=== PATIENT | male | born 1965 | race American Indian/Alaskan Native ===

== ENCOUNTER 2016-10-04 22:23 | Emergency (ER) | payer MEDICAID ==
[2016-10-04 22:24] VITALS: BMI 28.7
[2016-10-04 22:39] VITALS: BP 146/95; PULSE 75; RESP 16; TEMP 98.7; O2SAT 100
--- NOTE | 2016-10-04 23:06 | ED PDOC ---
HPI: General Adult Time Seen by Provider: 10/04/16 23:00 Chief Complaint (Nursing): Back Pain Chief Complaint (Provider): back pain, leg pain History Per: Patient Additional Complaint(s): 51-year-old male presents to emergency department with lower back pain and bilateral leg pain that started yesterday. Patient has history of chronic back pain and states that his pain became worse yesterday. Patient is currently living in the nursing home in [place]. He denies any fever or chills, denies any trauma or injury. Patient states that he also had 1 episode of blood in stool earlier today. He denies any associated abdominal pain, no nausea, vomiting or diarrhea. Patient has had episodes of blood in stool in the past intermittently for 2-3 years. Patient denies any rectal pain. Patient also states he has noticed some swelling in both feet as of today. He denies chest pain, shortness of breath or BELTRAN. Past Medical History Reviewed: Historical Data Vital Signs: Last Vital Signs Temp 98.7 F 10/04/16 22:37 Pulse 75 10/04/16 22:37 Resp 16 10/04/16 22:37 BP 146/95 H 10/04/16 22:37 Pulse Ox 100 10/05/16 00:17 - Medical History PMH: Depression - Family History Family History: States: No Known Family Hx - Living Arrangements Living Arrangements: Other (lives in nursing home) - Social History Current smoker - smoking cessation education provided: Yes Alcohol: > 2 Drinks/Day Drugs: Cocaine (history of abuse) - Immunization History Hx Tetanus Toxoid Vaccination: No Hx Influenza Vaccination: No Hx Pneumococcal Vaccination: No - Home Medications Home Medications: Ambulatory Orders Medication Instructions Recorded Acetaminophen [Tylenol 325mg tab] 650 mg PO Q6 PRN #60 tab 10/05/16 Cyclobenzaprine [Cyclobenzaprine 10 mg PO TID PRN #15 tab 10/05/16 HCl] - Allergies Allergies/Adverse Reactions: Allergies Allergy/AdvReac Type Severity Reaction Status Date / Time No Known Allergies Allergy Verified 09/27/16 10:04 Review of Systems ROS Statement: Except As Marked, All Systems Reviewed And Found Negative Constitutional: Negative for: Fever, Chills Cardiovascular: Negative for: Chest Pain Respiratory: Negative for: Cough Gastrointestinal: Positive for: Other (1 episode of blood in stool today, history of same). Negative for: Nausea, Vomiting Genitourinary Male: Negative for: Dysuria Musculoskeletal: Positive for: Back Pain, Leg Pain Neurological: Negative for: Weakness, Numbness, Headache, Dizziness Physical Exam - Reviewed Nursing Documentation Reviewed: Yes Vital Signs Reviewed: Yes - Physical Exam Appears: Positive for: Well, Non-toxic, No Acute Distress Skin: Negative for: Rash Cardiovascular/Chest: Positive for: Regular Rate, Rhythm Respiratory: Positive for: Normal Breath Sounds. Negative for: Wheezing, Respiratory Distress Gastrointestinal/Abdominal: Positive for: Soft, Other (obese, non-tender abdomen ). Negative for: Tenderness, Distended, Guarding, Rebound Back: Negative for: L CVA Tenderness, R CVA Tenderness Extremity: Negative for: Pedal Edema, Calf Tenderness Neurologic/Psych: Positive for: Alert, Oriented - Laboratory Results Result Diagrams: 10/04/16 23:59 10/04/16 23:59 - ECG O2 Sat by Pulse Oximetry: 100 Pulse Ox Interpretation: Normal - Other Rad bedside chest X-Ray: Interpreted by Me, Viewed By Me X-Ray Interpretation: no acute finding Medical Decision Making Medical Decision Makin51 year old with back pain and leg pain Plan: CBC CMP BNP BAL UDS IVF IV toradol PO flexeril CXR Previous records reviewed, patient was discharged from inpatient detox at [facility] 2 days ago. Patient states he does not have history of etoh abuse despite his previous medical record stating otherwise. Patient states that he was admitted into detox department because there were no psychiatric beds available. At this time he denies any suicidal or homicidal ideation. Patient denies having used any alcohol in over 48 hours. He states he does not drink every day. 2:00 am: patient states back pain is improved after meds given. Abdominal exam remains benign. Patient was given rx tylenol and flexeril. He was referred to clinic for follow up. Disposition - Clinical Impression Clinical Impression: Back pain - Patient ED Disposition Is Patient to be Admitted: No Counseled Patient/Family Regarding: Studies Performed, Diagnosis, Need For Followup, Rx Given - Disposition Referrals: [facility] [Outside] Disposition: Routine/Home Disposition Time: 02:00 Condition: IMPROVED Additional Instructions: Take rx meds as directed as needed for pain. Follow up with clinic in 2-3 days. Prescriptions: Acetaminophen [Tylenol 325mg tab] 650 mg PO Q6 PRN #60 tab PRN Reason: Pain, Moderate (4-7) Cyclobenzaprine [Cyclobenzaprine HCl] 10 mg PO TID PRN #15 tab PRN Reason: Muscle Pain Instructions: Back Pain (ED) Results - Lab Results Lab Results: 10/05/16 10/05/16 10/04/16 00:55 00:55 23:59 WBC 5.9 RBC 4.24 L Hgb 12.4 Hct 37.0 MCV 87.3 D MCH 29.1 MCHC 33.4 RDW 15.0 H Plt Count 203 MPV 8.2 Neut % (Auto) 59.5 Lymph % (Auto) 29.6 [place] % (Auto) 7.7 Eos % (Auto) 2.3 Baso % (Auto) 0.9 Neut # 3.5 Lymph # 1.7 [place] # 0.5 Eos # 0.1 Baso # 0.1 Sodium Potassium Chloride Carbon Dioxide Anion Gap BUN Creatinine Est GFR ( Amer) Est GFR (Non-Af Amer) Random Glucose Calcium Total Bilirubin AST ALT Alkaline Phosphatase NT-Pro-B Natriuret Pep Total Protein Albumin Globulin Albumin/Globulin Ratio Urine Color Straw Urine Clarity Clear Urine pH 7.0 Ur Specific [place] 1.009 Urine Protein Negative Urine Glucose (UA) Neg Urine Ketones Negative Urine Blood Negative Urine Nitrate Negative Urine Bilirubin Negative Urine Urobilinogen 0.2-1.0 Ur Leukocyte Esterase Neg Urine RBC (Auto) 2 Urine Microscopic WBC < 1 Ur Squamous Epith Cells < 1 Urine Opiates Screen Negative Urine Methadone Screen Negative Ur Barbiturates Screen Negative Ur Phencyclidine Scrn Negative Ur Amphetamines Screen Negative U Benzodiazepines Scrn Negative U Oth Cocaine Metabols Pending U Cannabinoids Screen Positive H Alcohol, Quantitative 10/04/16 23:59 WBC RBC Hgb Hct MCV MCH MCHC RDW Plt Count MPV Neut % (Auto) Lymph % (Auto) [place] % (Auto) Eos % (Auto) Baso % (Auto) Neut # Lymph # [place] # Eos # Baso # Sodium 141 Potassium 4.0 Chloride 105 Carbon Dioxide 27 Anion Gap 12 BUN 13 Creatinine 1.0 Est GFR ( Amer) > 60 Est GFR (Non-Af Amer) > 60 Random Glucose 97 Calcium 9.2 Total Bilirubin 0.3 AST 32 ALT 40 Alkaline Phosphatase 70 NT-Pro-B Natriuret Pep 119 Total Protein 6.8 Albumin 3.8 Globulin 3.0 Albumin/Globulin Ratio 1.3 Urine Color Urine Clarity Urine pH Ur Specific [place] Urine Protein Urine Glucose (UA) Urine Ketones Urine Blood Urine Nitrate Urine Bilirubin Urine Urobilinogen Ur Leukocyte Esterase Urine RBC (Auto) Urine Microscopic WBC Ur Squamous Epith Cells Urine Opiates Screen Urine Methadone Screen Ur Barbiturates Screen Ur Phencyclidine Scrn Ur Amphetamines Screen U Benzodiazepines Scrn U Oth Cocaine Metabols U Cannabinoids Screen Alcohol, Quantitative < 10
[2016-10-05 00:12] LABS: BASO # 0.1 K/uL (0.0-0.2); BASO % 0.9 % (0.0-2.0); EOS # 0.1 K/uL (0.0-0.7); EOS % 2.3 % (0.0-4.0); LYMPH # 1.7 K/uL (1.0-4.3); LYMPH % 29.6 % (20.0-40.0); MEAN CELL VOLUME 87.3 fl (80.0-94.0); MEAN CORPUSCULAR HEMOGLOBIN 29.1 pg (27.0-31.0); MEAN CORPUSCULAR HGB CONC 33.4 g/dL (33.0-37.0); MEAN PLATELET VOLUME 8.2 fl (7.2-11.7); MONO # 0.5 K/uL (0.0-0.8); MONO % 7.7 % (0.0-10.0); NEUT # 3.5 K/uL (1.8-7.0); NEUT % 59.5 % (50.0-75.0); NRBC % 0.2 % (0.0-0.0); WHITE BLOOD COUNT 5.9 K/uL (4.8-10.8)
[2016-10-05 00:36] LABS: ALB/GLOB RATIO 1.3 (1.0-2.1); ALKALINE PHOSPHATASE 70 U/L (38-126); ALT/SGPT 40 U/L (21-72); AST/SGOT 32 U/L (17-59); BILIRUBIN,TOTAL 0.3 mg/dl (0.2-1.3); BLOOD UREA NITROGEN 13 mg/dl (9-20); CALCIUM 9.2 mg/dL (8.4-10.2); CARBON DIOXIDE 27 mmol/L (22-30); CHLORIDE 105 mmol/L (98-107); GFR AFRICAN-AMERICAN > 60; GLUCOSE,RANDOM 97 mg/dL (75-110); SODIUM 141 mmol/l (132-148); TOTAL PROTEIN 6.8 G/DL (6.3-8.2)
[2016-10-05 00:56] LABS: ALCOHOL SERUM < 10 mg/dl (0-10)
[2016-10-05 01:23] LABS: RBC URINE 2 /hpf (0-3); URINE BILIRUBIN NEGATIVE (NEGATIVE); URINE BLOOD NEGATIVE (NEGATIVE); URINE COLOR STRAW (YELLOW); URINE GLUCOSE (UA) NEG (Normal); URINE KETONE NEGATIVE (NEGATIVE); URINE LEUKOCYTE ESTERASE NEG Leu/uL (Negative); URINE PROTEIN NEGATIVE (NEGATIVE); URINE UROBILINOGEN 0.2-1.0 mg/dL (0.2-1.0); WBC URINE < 1 /hpf (0-5)
--- NOTE | 2016-10-05 08:01 | RAD ---
HISTORY: swelling to legs COMPARISON: No prior. FINDINGS: LUNGS: No active pulmonary disease. PLEURA: No significant pleural effusion identified, no pneumothorax apparent. CARDIOVASCULAR: Cardiomegaly. OSSEOUS STRUCTURES: No significant abnormalities. VISUALIZED UPPER ABDOMEN: Normal. OTHER FINDINGS: None. IMPRESSION: No active disease.
== END 2016-10-05 06:51 | disposition home or self-care (01) ==
LOC: H.ER 22:23
DX: M54.9 Dorsalgia, unspecified (principal)

== ENCOUNTER 2017-01-16 02:43 | Inpatient (IN) | payer MEDICAID ==
[2017-01-16 02:44] VITALS: BMI 29.9
[2017-01-16] MEDS ORDERED: Sodium Chloride 0.9% 1,000 ML IV STA (03:00)
--- NOTE | 2017-01-16 03:16 | ED PDOC ---
HPI: Chest Pain Time Seen by Provider: 01/16/17 02:48 Chief Complaint (Nursing): Chest Pain Chief Complaint (Provider): Chest Pain, Nausea, Vomiting, Diarrhea History Per: Patient History/Exam Limitations: no limitations Onset/Duration Of Symptoms: Days (1) Current Symptoms Are (Timing): Still Present Additional Complaint(s): 51 y/o male with a history of hypertension and dyslipidemia, who presents with 1 day of intermittent substernal chest pain. Symptoms are associated with nausea, 2 episodes of vomiting, and 3 episodes of diarrhea. Patient reports mild blood tinge to the vomitus. He believes that he ate something that might have triggered symptoms. PMD: None - Risk Factors TAD Risk Factors: Pos: Hypertension Past Medical History Reviewed: Historical Data, Nursing Documentation, Vital Signs Vital Signs: Last Vital Signs Temp 98.0 F 01/16/17 02:54 Pulse 93 H 01/16/17 04:26 Resp 17 01/16/17 02:54 BP 137/95 H 01/16/17 02:54 Pulse Ox 100 01/16/17 04:26 - Medical History PMH: Depression, HTN, Post Traumatic Stress Disorder Denies: Diabetes, Hepatitis, HIV, Chronic Kidney Disease, Seizures, Sexually Transmitted Disease Other PMH: Dyslipidemia - Surgical History Surgical History: No Surg Hx - Family History Family History: States: Unknown Family Hx - Social History Current smoker - smoking cessation education provided: Yes SMOKER/PACKS PER DAY:: 1 Alcohol: > 2 Drinks/Day Drugs: Cocaine (1 x weekly) - Immunization History Hx Tetanus Toxoid Vaccination: No Hx Influenza Vaccination: No Hx Pneumococcal Vaccination: No - Home Medications Home Medications: Ambulatory Orders Medication Instructions Recorded ARIPiprazole [Abilify] 5 mg PO 1999 #14 tab 01/15/17 Citalopram [celeXA] 20 mg PO DAILY #14 tab 01/15/17 DiphenhydrAMINE [Benadryl] 50 mg PO HS PRN #14 cap 01/15/17 Docusate [Colace] 100 mg PO TID #30 cap 01/15/17 Folic Acid 1 mg PO DAILY #14 tab 01/15/17 Multivitamin Therapeutic Tab 1 tab PO 0800 #14 tab 01/15/17 [Thera Tab] Polyethylene Glycol 3350 [Miralax] 17 gm PO BID PRN #14 packet 01/15/17 Thiamine [Vitamin B1 Tab] 50 mg PO DAILY #14 tab 01/15/17 - Allergies Allergies/Adverse Reactions: Allergies Allergy/AdvReac Type Severity Reaction Status Date / Time shrimp Allergy SWELLING Verified 01/11/17 02:18 Review of Systems ROS Statement: Except As Marked, All Systems Reviewed And Found Negative Cardiovascular: Positive for: Chest Pain Gastrointestinal: Positive for: Nausea, Vomiting (2 episodes), Diarrhea (3 episodes), Hematemesis Physical Exam - Reviewed Nursing Documentation Reviewed: Yes Vital Signs Reviewed: Yes - Physical Exam Appears: Positive for: Non-toxic, No Acute Distress Head Exam: Positive for: ATRAUMATIC, NORMAL INSPECTION, NORMOCEPHALIC Skin: Positive for: Normal Color, Warm, Dry Eye Exam: Positive for: EOMI, Normal appearance, PERRL Neck: Positive for: Normal, Painless ROM Cardiovascular/Chest: Positive for: Regular Rate, Rhythm. Negative for: Murmur Respiratory: Positive for: Normal Breath Sounds. Negative for: Respiratory Distress Gastrointestinal/Abdominal: Positive for: Normal Exam, Bowel Sounds, Soft. Negative for: Tenderness Back: Positive for: Normal Inspection Extremity: Positive for: Normal ROM. Negative for: Pedal Edema, Deformity Neurologic/Psych: Positive for: Alert, Oriented - Laboratory Results Result Diagrams: 01/16/17 03:21 01/16/17 03:21 - ECG ECG: Positive for: Interpreted By Me, Viewed By Me (at 2:50) ECG Rhythm: Positive for: Sinus Rhythm Interpretation Of Abn EKG: Nonspecific T wave abnormalities Rate: 93 O2 Sat by Pulse Oximetry: 100 (RA) Pulse Ox Interpretation: Normal Medical Decision Making Medical Decision Making: Time: 02:59 Initial Impression: 51 y/o male with chest pain in setting of hypertension, dyslipidemia, and cocaine abuse. Initial Plan: --IV Sodium chloride and Zofran --Aspirin and Bentyl PO --ECG --Alcohol Serum --CMP --Urine Drug Screen --Troponin 1 --Urine dipstick --CBC --PTT --Prothrombin Time Time: 4:12 --Chest XR was ordered. --Patient will be hospitalized on observation for chest pain. --Case was discussed with Dr. Ross, medicine elementary special education teacher --Labs were review and normal with exception of toxicology positive for cocaine. Clinical Impression: Chest Pain Scribe Attestation: Documented by Julián Irene, acting as a scribe for Terrance Lee MD Provider Scribe Attestation: All medical record entries made by the Scribe were at my direction and personally dictated by me. I have reviewed the chart and agree that the record accurately reflects my personal performance of the history, physical exam, medical decision making, and the department course for this patient. I have also personally directed, reviewed, and agree with the discharge instructions and disposition. Disposition - Clinical Impression Clinical Impression: Chest pain - Patient ED Disposition Is Patient to be Admitted: Yes Discussed With DrDestin: Stuart Ross - Disposition Disposition Time: 04:12 Condition: FAIR Forms: [facility] (Telugu) - Pt Status Changed To: Hospital Disposition Of: Observation
[2017-01-16 03:33] LABS: BASO # 0.1 K/uL (0.0-0.2); BASO % 0.9 % (0.0-2.0); EOS # 0.1 K/uL (0.0-0.7); EOS % 1.1 % (0.0-4.0); LYMPH # 1.9 K/uL (1.0-4.3); LYMPH % 29.2 % (20.0-40.0); MEAN CELL VOLUME 85.2 fl (80.0-94.0); MEAN CORPUSCULAR HEMOGLOBIN 28.7 pg (27.0-31.0); MEAN CORPUSCULAR HGB CONC 33.7 g/dL (33.0-37.0); MEAN PLATELET VOLUME 7.8 fl (7.2-11.7); MONO # 0.6 K/uL (0.0-0.8); NEUT # 3.8 K/uL (1.8-7.0); NEUT % 59.8 % (50.0-75.0); NRBC % 0.2 % (0.0-0.0); RED CELL DISTRIBUTION WIDTH 15.5 % (11.5-14.5); WHITE BLOOD COUNT 6.3 K/uL (4.8-10.8)
[2017-01-16 03:34] LABS: ALB/GLOB RATIO 1.4 (1.0-2.1); ALCOHOL SERUM 10 mg/dl (0-10); ALKALINE PHOSPHATASE 65 U/L (38-126); ALT/SGPT 53 U/L (21-72); AST/SGOT 36 U/L (17-59); BILIRUBIN,TOTAL 0.4 mg/dl (0.2-1.3); BLOOD UREA NITROGEN 21 mg/dl (9-20); CALCIUM 9.4 mg/dL (8.4-10.2); CARBON DIOXIDE 22 mmol/L (22-30); CHLORIDE 108 mmol/L (98-107); GFR AFRICAN-AMERICAN > 60; GLUCOSE,RANDOM 103 mg/dL (75-110); POTASSIUM 4.1 MMOL/L (3.6-5.0); SODIUM 142 mmol/l (132-148); TOTAL PROTEIN 7.2 G/DL (6.3-8.2)
[2017-01-16 03:59] LABS: PARTIAL THROMBOPLASTIN TIME 30.5 Seconds (25.6-37.1)
--- NOTE | 2017-01-16 10:38 | RAD ---
HISTORY: chest pain COMPARISON: Comparison is made to 10/04/2016 FINDINGS: LUNGS: No active pulmonary disease. PLEURA: No significant pleural effusion identified, no pneumothorax apparent. CARDIOVASCULAR: Normal. OSSEOUS STRUCTURES: No significant abnormalities. VISUALIZED UPPER ABDOMEN: Normal. OTHER FINDINGS: None. IMPRESSION: No active disease.
--- NOTE | 2017-01-16 10:51 | CARD ---
APPROVED REPORT EKG Measurement Heart [id number] <Conclusion> Normal sinus rhythm Possible Left atrial enlargement T wave abnormality, consider inferior ischemia Abnormal ECG
--- NOTE | 2017-01-16 11:36 | CP.PCM.HP ---
<Elder Canas - Last Filed: 01/16/17 11:42> History of Present Illness - History of Present Illness History of Present Illness: 51 y/o male with an unremarkable PMHx (as per pt) presented to [facility] ED with a 1 day history of substernal chest pain associated with SOB, nausea and an episode of "blood tinged" emesis. Pt denies any inciting event. This is his first episode. Chest pain is located substernally, is 5/10, nonradiating, and pressure like in character. Denies alleviating/exacerbating factors. Did not take any medications. Reports he exercises regularly and denies an BELTRAN or exertional chest pain. Reports intermittently abuse cocaine and marijuana, last usage of either substance was over 1 week ago. Does not have a PMD. No other complaints. Denies fever/chills, cough, headaches, changes in vision, palpitations, D/C, urinary symptoms, numbness/tingling. ROS: 12 points reviewed, as per HPI. 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 CBC: WNL CHEM: BUN 21 TROP: 0.0120 TOX: +cocaine, +cannaboids Present on Admission - Present on Admission Any Indicators Present on Admission: No Past Patient History - Infectious Disease Hx of Infectious Diseases: None - Past Medical History & Family History Past Medical History?: Yes - Past Social History Smoking Status: Former Smoker Alcohol: Occasional Drugs: Cannabis, Cocaine Domestic Violence: Negative - CARDIAC Hx Cardiac Disorders: Yes Hx Hypercholesterolemia: Yes - PULMONARY Hx Tuberculosis: No - NEUROLOGICAL Hx Seizures: No - HEENT Hx HEENT Problems: No - RENAL Hx Chronic Kidney Disease: No - ENDOCRINE/METABOLIC Hx Endocrine Disorders: No - HEMATOLOGICAL/ONCOLOGICAL Hx Human Immunodeficiency Virus (HIV): No - INTEGUMENTARY Hx Dermatological Problems: No - MUSCULOSKELETAL/RHEUMATOLOGICAL Hx Musculoskeletal Disorders: No Hx Falls: No - GASTROINTESTINAL Hx Gastrointestinal Disorders: No - GENITOURINARY/GYNECOLOGICAL Hx Genitourinary Disorders: No Hx Sexually Transmitted Disorders: No - PSYCHIATRIC Hx Depression: Yes Hx Post Traumatic Stress Disorder: Yes - SURGICAL HISTORY Hx Surgeries: No - ANESTHESIA Hx Anesthesia: No Meds Allergies/Adverse Reactions: Allergies Allergy/AdvReac Type Severity Reaction Status Date / Time shrimp Allergy SWELLING Verified 01/11/17 02:18 Physical Exam - Constitutional Appears: Non-toxic, No Acute Distress - Head Exam Head Exam: ATRAUMATIC - Eye Exam Eye Exam: EOMI. absent: Conjunctival injection, Scleral icterus Pupil Exam: PERRL - ENT Exam ENT Exam: Mucous Membranes Moist - Neck Exam Neck exam: Positive for: Full Rom - Respiratory Exam Respiratory Exam: Clear to Auscultation Bilateral, NORMAL BREATHING PATTERN. absent: Rales, Rhonchi, Wheezes - Cardiovascular Exam Cardiovascular Exam: REGULAR RHYTHM, RRR, +S1, +S2. absent: Gallop, JVD, Rubs, Systolic Murmur - GI/Abdominal Exam GI & Abdominal Exam: Normal Bowel Sounds, Soft. absent: Firm, Guarding, Tenderness - Extremities Exam Extremities exam: Positive for: normal inspection, pedal pulses present. Negative for: calf tenderness, pedal edema - Neurological Exam Neurological exam: Alert, CN II-XII Intact, Normal Gait, Oriented x3 - Psychiatric Exam Psychiatric exam: Normal Affect, Normal Mood - Skin Skin Exam: Dry, Normal Color, Warm Results - Vital Signs Recent Vital Signs: Last Vital Signs Temp 97.7 F 01/16/17 08:05 Pulse 75 01/16/17 09:21 Resp 16 01/16/17 09:21 BP 139/91 H 01/16/17 08:05 Pulse Ox 99 01/16/17 09:21 - Labs Result Diagrams: 01/16/17 03:21 01/16/17 03:21 Labs: Laboratory Results - last 24 hr 01/16/17 01/16/17 01/16/17 03:21 03:21 03:21 WBC 6.3 RBC 4.58 Hgb 13.2 Hct 39.0 MCV 85.2 D MCH 28.7 MCHC 33.7 RDW 15.5 H Plt Count 238 MPV 7.8 Neut % (Auto) 59.8 Lymph % (Auto) 29.2 [place] % (Auto) 9.0 Eos % (Auto) 1.1 Baso % (Auto) 0.9 Neut # 3.8 Lymph # 1.9 [place] # 0.6 Eos # 0.1 Baso # 0.1 PT 12.4 INR 1.2 APTT 30.5 Sodium 142 Potassium 4.1 Chloride 108 H Carbon Dioxide 22 Anion Gap 16 BUN 21 H Creatinine 1.0 Est GFR ( Amer) > 60 Est GFR (Non-Af Amer) > 60 Random Glucose 103 Calcium 9.4 Total Bilirubin 0.4 AST 36 ALT 53 Alkaline Phosphatase 65 Troponin I 0.0120 Total Protein 7.2 Albumin 4.3 Globulin 3.0 Albumin/Globulin Ratio 1.4 Urine Opiates Screen Urine Methadone Screen Ur Barbiturates Screen Ur Phencyclidine Scrn Ur Amphetamines Screen U Benzodiazepines Scrn U Oth Cocaine Metabols U Cannabinoids Screen Alcohol, Quantitative 10 01/16/17 03:23 WBC RBC Hgb Hct MCV MCH MCHC RDW Plt Count MPV Neut % (Auto) Lymph % (Auto) [place] % (Auto) Eos % (Auto) Baso % (Auto) Neut # Lymph # [place] # Eos # Baso # PT INR APTT Sodium Potassium Chloride Carbon Dioxide Anion Gap BUN Creatinine Est GFR ( Amer) Est GFR (Non-Af Amer) Random Glucose Calcium Total Bilirubin AST ALT Alkaline Phosphatase Troponin I Total Protein Albumin Globulin Albumin/Globulin Ratio Urine Opiates Screen Negative Urine Methadone Screen Negative Ur Barbiturates Screen Negative Ur Phencyclidine Scrn Negative Ur Amphetamines Screen Negative U Benzodiazepines Scrn Negative U Oth Cocaine Metabols Positive H U Cannabinoids Screen Positive H Alcohol, Quantitative Assessment & Plan (2) Atypical chest pain Assessment and Plan: admitted to [facility] likely secondary to cocaine abuse Troponin I neg, will follow up next 2 results EKG on 01/15: possible inferior ischemia, compared with EKGs from 01/10/2017 and 09/2014, no acute changes ECHO: pending Cardiology consult appreciated Status: Acute <Stuart Ross - Last Filed: 01/24/17 16:15> Results - Vital Signs Recent Vital Signs: Last Vital Signs Temp 97.3 F L 01/21/17 05:06 Pulse 80 01/21/17 05:06 Resp 18 01/21/17 05:06 BP 128/78 01/21/17 05:06 Pulse Ox 96 01/21/17 05:06 - Labs Result Diagrams: 01/21/17 05:30 01/21/17 05:30 Assessment & Plan - Assessment and Plan (Free Text) Assessment: Patient was personally seen and examined by me in rounds with residents. Available labs and diagnostic data reviewed. Case, Patient's condition and management plan Discussed with residents in rounds. Agree with resident's progress note. Plan: As ordered.
[2017-01-16] MEDS ORDERED: Sodium Chloride 0.9% 500 ML IV SCH (13:30)
--- NOTE | 2017-01-16 13:58 | CARD ---
APPROVED REPORT EXAM: Two-dimensional and M-mode echocardiogram with Doppler and color Doppler. Other Information Quality : GoodRhythm : NSR INDICATION Abnormal EKG/Arrhythmia 2D DIMENSIONS IVSd1.55 (0.7-1.1cm)LVDd3.68 (3.9-5.9cm) LVOT Diameter2.44 (1.8-2.4cm)PWd1.58 (0.7-1.1cm) IVSs2.08 (0.8-1.2cm)LVDs2.56 (2.5-4.0cm) FS (%) 30.6 %PWs1.62 (0.8-1.2cm) M-Mode DIMENSIONS Left Atrium (MM)4.18 (2.5-4.0cm)IVSd1.47 (0.7-1.1cm) Aortic Root2.85 (2.2-3.7cm)LVDd4.35 (4.0-5.6cm) Aortic Cusp Exc.2.12 (1.5-2.0cm)PWd1.62 (0.7-1.1cm) IVSs1.88 cmFS (%) 45 % LVDs2.41 (2.0-3.8cm)PWs2.35 cm Mitral Valve MV E Dsussklj01.4cm/sMV DECEL [id number] A Mrepgaji37.7cm/s MV QQA95vsQ/A ratio1.3MVA (PHT)3.85cm2 TDI Lateral E' Peak V8.80cm/sMedial E' Peak V8.39cm/sE/Lateral E'6.9 E/Medial E'7.2 Pulmonary Valve PV Peak Pgfthmhu84.9cm/s LEFT VENTRICLE The left ventricle is normal size. There is mild to moderate concentric left ventricular hypertrophy. The left ventricular function is normal. The left ventricular ejection fraction is within the normal range. The Ejection Fraction is 60-65%. There is normal LV segmental wall motion. The left ventricular diastolic function is normal. No left ventricle thrombus noted on this study. There is no mass noted in the left ventricle. RIGHT VENTRICLE The right ventricle is normal size. There is normal right ventricular wall thickness. The right ventricular systolic function is normal. ATRIA The left atrium size is normal. The right atrium size is normal. The interatrial septum is intact with no evidence for an atrial septal defect. AORTIC VALVE The aortic valve is normal in structure and function. No aortic regurgitation is present. There is no aortic valvular stenosis. There is no aortic valvular vegetation. MITRAL VALVE The mitral valve is normal in structure and function. There is no evidence of mitral valve prolapse. There is no mitral valve stenosis. There is no mitral valve regurgitation noted. TRICUSPID VALVE The tricuspid valve is normal in structure and function. There is no tricuspid valve regurgitation noted. There is no tricuspid valve prolapse or vegetation. There is no tricuspid valve stenosis. PULMONIC VALVE The pulmonary valve is normal in structure and function. There is no pulmonic valvular regurgitation. There is no pulmonic valvular stenosis. GREAT VESSELS The aortic root is normal in size. The IVC is normal in size and collapses >50% with inspiration. PERICARDIAL EFFUSION The pericardium appears normal. There is no pleural effusion. <Conclusion> The left ventricle is normal size. There is mild to moderate concentric left ventricular hypertrophy. The left ventricular function is normal. The left ventricular ejection fraction is within the normal range. The Ejection Fraction is 60-65%.
[2017-01-16] MEDS: Pantoprazole 40 mg EC Tab PO SCH (15:19)
[2017-01-16] MEDS: Enoxaparin 40 mg Syringe SC SCH (15:19)
[2017-01-16] MEDS ORDERED: Metoprolol Succinate 25 mg XL Tab PO SCH (21:00)
--- NOTE | 2017-01-16 21:17 | CP.PCM.CON ---
Past Patient History - Infectious Disease Hx of Infectious Diseases: None - Past Medical History & Family History Past Medical History?: Yes - Past Social History Smoking Status: Former Smoker Alcohol: Occasional Drugs: Cannabis, Cocaine Domestic Violence: Negative - CARDIAC Hx Cardiac Disorders: Yes Hx Hypercholesterolemia: Yes - PULMONARY Hx Tuberculosis: No - NEUROLOGICAL Hx Seizures: No - HEENT Hx HEENT Problems: No - RENAL Hx Chronic Kidney Disease: No - ENDOCRINE/METABOLIC Hx Endocrine Disorders: No - HEMATOLOGICAL/ONCOLOGICAL Hx Human Immunodeficiency Virus (HIV): No - INTEGUMENTARY Hx Dermatological Problems: No - MUSCULOSKELETAL/RHEUMATOLOGICAL Hx Musculoskeletal Disorders: No Hx Falls: No - GASTROINTESTINAL Hx Gastrointestinal Disorders: No - GENITOURINARY/GYNECOLOGICAL Hx Genitourinary Disorders: No Hx Sexually Transmitted Disorders: No - PSYCHIATRIC Hx Depression: Yes Hx Post Traumatic Stress Disorder: Yes - SURGICAL HISTORY Hx Surgeries: No - ANESTHESIA Hx Anesthesia: No Meds Allergies/Adverse Reactions: Allergies Allergy/AdvReac Type Severity Reaction Status Date / Time shrimp Allergy SWELLING Verified 01/11/17 02:18 - Medications Medications: Current Medications Enoxaparin Sodium (Lovenox) 40 mg SC DAILY [facility] PRN Reason: Protocol Last Admin: 01/16/17 15:19 Dose: 40 mg Sodium Chloride (Sodium Chloride 0.9%) 500 mls @ 80 mls/hr IV .Q6H15M [facility] Last Admin: 01/16/17 15:18 Dose: 80 mls/hr Metoprolol Succinate (Toprol Xl) 25 mg PO Q12 [facility] Nitroglycerin (Nitrostat Sl Tab) 0.4 mg SL Q5M PRN PRN Reason: chest pain Pantoprazole Sodium (Protonix Ec Tab) 40 mg PO DAILY [facility] Last Admin: 01/16/17 15:19 Dose: 40 mg Results - Vital Signs Recent Vital Signs: Last Vital Signs Temp 97.8 F 01/16/17 20:06 Pulse 71 01/16/17 20:06 Resp 14 01/16/17 20:06 BP 119/70 01/16/17 20:06 Pulse Ox 97 01/16/17 20:06 - Labs Result Diagrams: 01/16/17 03:21 01/16/17 03:21 Labs: Laboratory Results - last 24 hr 01/16/17 01/16/17 01/16/17 03:21 03:21 03:21 WBC 6.3 RBC 4.58 Hgb 13.2 Hct 39.0 MCV 85.2 D MCH 28.7 MCHC 33.7 RDW 15.5 H Plt Count 238 MPV 7.8 Neut % (Auto) 59.8 Lymph % (Auto) 29.2 [place] % (Auto) 9.0 Eos % (Auto) 1.1 Baso % (Auto) 0.9 Neut # 3.8 Lymph # 1.9 [place] # 0.6 Eos # 0.1 Baso # 0.1 PT 12.4 INR 1.2 APTT 30.5 Sodium 142 Potassium 4.1 Chloride 108 H Carbon Dioxide 22 Anion Gap 16 BUN 21 H Creatinine 1.0 Est GFR ( Amer) > 60 Est GFR (Non-Af Amer) > 60 Random Glucose 103 Calcium 9.4 Total Bilirubin 0.4 AST 36 ALT 53 Alkaline Phosphatase 65 Troponin I 0.0120 Total Protein 7.2 Albumin 4.3 Globulin 3.0 Albumin/Globulin Ratio 1.4 Urine Opiates Screen Urine Methadone Screen Ur Barbiturates Screen Ur Phencyclidine Scrn Ur Amphetamines Screen U Benzodiazepines Scrn U Oth Cocaine Metabols U Cannabinoids Screen Alcohol, Quantitative 10 01/16/17 01/16/17 01/16/17 03:23 11:20 18:20 WBC RBC Hgb Hct MCV MCH MCHC RDW Plt Count MPV Neut % (Auto) Lymph % (Auto) [place] % (Auto) Eos % (Auto) Baso % (Auto) Neut # Lymph # [place] # Eos # Baso # PT INR APTT Sodium Potassium Chloride Carbon Dioxide Anion Gap BUN Creatinine Est GFR ( Amer) Est GFR (Non-Af Amer) Random Glucose Calcium Total Bilirubin AST ALT Alkaline Phosphatase Troponin I 0.0140 < 0.0120 Total Protein Albumin Globulin Albumin/Globulin Ratio Urine Opiates Screen Negative Urine Methadone Screen Negative Ur Barbiturates Screen Negative Ur Phencyclidine Scrn Negative Ur Amphetamines Screen Negative U Benzodiazepines Scrn Negative U Oth Cocaine Metabols Positive H U Cannabinoids Screen Positive H Alcohol, Quantitative - EKG Data EKG Interpreted by: Myself EKG shows normal: Sinus rhythm, ST-T waves Assessment & Plan (1) SOB (shortness of breath) Status: Acute (2) Hematemesis with nausea Status: Acute (3) Abdominal pain Status: Acute (4) Diarrhea Status: Acute (5) EKG abnormalities Status: Acute (6) Diastolic dysfunction Status: Acute (7) LVH (left ventricular hypertrophy) Status: Acute (8) Atypical chest pain Status: Acute - Assessment and Plan (Free Text) Plan: PT HAS MULTIPLE GI SYMPTOMS WITH POSSIBLE HEMATEMESIS. HE DOES HOWEVER HAVE EKG ABN AND ECHO DOES REVEAL DIASTOLIC DYSFUNCTION AND LVH. PT SHOULD HAVE EST WITH NUC IMAGING TO RULE OUT ISCHEMIC ETIOLOGY. ESPECIALLY GIVEN HIS HX OF DRUG USE. ASA ORDERED. METOPROLOL CHANGED TO COREG. MYLANTA AND VISCOUS LIDO TRIAL TIMES 1 FOR CONTINUED CP AND ABD PAIN. MO RULED OUT. I REVIEWED ECHO IMAGES MYSELF. 90 MIN TOTAL CARE TIME.
[2017-01-17] MEDS: Alum-Mag Hydrox-Simethicone Susp (30 mL) PO ONE ×2 (01:21→03:54)
[2017-01-17] MEDS: Pantoprazole 40 mg EC Tab PO SCH ×2 (04:42→09:25)
[2017-01-17 06:16] LABS: BASO % 0.7 % (0.0-2.0); EOS # 0.1 K/uL (0.0-0.7); EOS % 2.3 % (0.0-4.0); HEMATOCRIT 39.4 % (35.0-51.0); LYMPH # 1.7 K/uL (1.0-4.3); LYMPH % 34.1 % (20.0-40.0); MEAN CELL VOLUME 86.9 fl (80.0-94.0); MEAN CORPUSCULAR HEMOGLOBIN 28.6 pg (27.0-31.0); MEAN CORPUSCULAR HGB CONC 32.9 g/dL (33.0-37.0); MEAN PLATELET VOLUME 8.1 fl (7.2-11.7); MONO # 0.4 K/uL (0.0-0.8); MONO % 8.7 % (0.0-10.0); NEUT # 2.7 K/uL (1.8-7.0); NEUT % 54.2 % (50.0-75.0); NRBC % 0.2 % (0.0-0.0); RED CELL DISTRIBUTION WIDTH 15.7 % (11.5-14.5); WHITE BLOOD COUNT 4.9 K/uL (4.8-10.8)
[2017-01-17 06:19] LABS: BLOOD UREA NITROGEN 13 mg/dl (9-20); CALCIUM 9.1 mg/dL (8.4-10.2); CARBON DIOXIDE 26 mmol/L (22-30); CHLORIDE 106 mmol/L (98-107); GFR AFRICAN-AMERICAN > 60; GLUCOSE,RANDOM 113 mg/dL (75-110); MAGNESIUM 1.9 MG/DL (1.6-2.3); POTASSIUM 3.8 MMOL/L (3.6-5.0); SODIUM 138 mmol/l (132-148)
[2017-01-17] MEDS: Enoxaparin 40 mg Syringe SC SCH (09:23)
--- NOTE | 2017-01-17 13:21 | CP.PCM.PN ---
<Elder Canas - Last Filed: 01/17/17 13:19> Subjective - Date & Time of Evaluation Date of Evaluation: 01/17/17 Time of Evaluation: 13:19 - Subjective Subjective: pt seen and examined at bedside with attending today. Pt had an uneventul overnight and remained afebrile. No episodes of emesis. 2 episodes of diarrhea, unknown color or consistency as pt did not check. Denies CP this morning and reports pain is primarily located in his epigastric region. Upon further questioning, reports seeing blood in stool >1 week ago. No other complaints. Tolerating Po intake. Objective - Vital Signs/Intake and Output Vital Signs (last 24 hours): Temp Pulse Resp BP Pulse Ox 98.2 F 56 L 18 130/84 98 01/17/17 12:00 01/17/17 12:00 01/17/17 12:00 01/17/17 12:00 01/17/17 12:00 - Medications Medications: Current Medications Acetaminophen (Tylenol 325mg Tab) 650 mg PO Q6 PRN PRN Reason: Pain, moderate (4-7) Aspirin (Aspirin Chewable) 81 mg PO DAILY [facility] Last Admin: 01/17/17 09:22 Dose: 81 mg Carvedilol (Coreg) 6.25 mg PO Q12 [facility] Last Admin: 01/17/17 09:22 Dose: 6.25 mg Enoxaparin Sodium (Lovenox) 40 mg SC DAILY [facility] PRN Reason: Protocol Last Admin: 01/17/17 09:23 Dose: 40 mg Nitroglycerin (Nitrostat Sl Tab) 0.4 mg SL Q5M PRN PRN Reason: chest pain Pantoprazole Sodium (Protonix Ec Tab) 40 mg PO DAILY [facility] Last Admin: 01/17/17 09:25 Dose: Not Given - Labs Labs: 01/17/17 05:50 01/17/17 05:50 PT 12.4 Seconds (9.8-13.1) 01/16/17 03:21 INR 1.2 (0.9-1.2) 01/16/17 03:21 APTT 30.5 Seconds (25.6-37.1) 01/16/17 03:21 - Constitutional Appears: Non-toxic, No Acute Distress - Head Exam Head Exam: ATRAUMATIC - Eye Exam Eye Exam: EOMI. absent: Conjunctival injection, Scleral icterus Pupil Exam: PERRL - ENT Exam ENT Exam: Mucous Membranes Moist - Respiratory Exam Respiratory Exam: Clear to Ausculation Bilateral, NORMAL BREATHING PATTERN. absent: Rales, Rhonchi, Wheezes - Cardiovascular Exam Cardiovascular Exam: REGULAR RHYTHM, RRR, +S1, +S2. absent: Tachycardia, JVD, Rubs, Murmur - GI/Abdominal Exam GI & Abdominal Exam: Distended, Soft, Tenderness (epigastric discomfort secondary to palpation), Normal Bowel Sounds. absent: Firm, Guarding, Rigid, Mass - Extremities Exam Extremities Exam: Normal Inspection - Neurological Exam Neurological Exam: Alert, Awake, CN II-XII Intact, Oriented x3 - Psychiatric Exam Psychiatric exam: Normal Affect, Normal Mood - Skin Skin Exam: Dry, Intact. absent: Diaphoretic Assessment and Plan (1) Epigastric abdominal pain of unknown etiology Assessment & Plan: pt reports episodes of hematemesis prior to admission as well as what sounds to be episodic hematochezia prior to admission, denies any episodes currently Liver enzymes WNL Lipase: pending CT abd ordered GI consult appreciated Status: Acute (2) Atypical chest pain Assessment & Plan: seen by Cardiology, [place] ruled out. ECHO performed showed LVH and diastolic dysfunction as per consulting radio repairer domestic. Troponins neg Status: Acute (3) Prophylactic measure Assessment & Plan: Lovenox 40mg SC QD Pantoprazole 40mg QD Status: Acute <Ross,Stuart K - Last Filed: 01/24/17 16:19> Objective - Vital Signs/Intake and Output Vital Signs (last 24 hours): Temp Pulse Resp BP Pulse Ox 97.3 F L 80 18 128/78 96 01/21/17 05:06 01/21/17 05:06 01/21/17 05:06 01/21/17 05:06 01/21/17 05:06 - Labs Labs: 01/21/17 05:30 01/21/17 05:30 PT 12.4 Seconds (9.8-13.1) 01/16/17 03:21 INR 1.2 (0.9-1.2) 01/16/17 03:21 APTT 30.5 Seconds (25.6-37.1) 01/16/17 03:21 Assessment and Plan - Assessment and Plan (Free Text) Assessment: Patient was personally seen and examined by me in rounds with residents. Available labs and diagnostic data reviewed. Case, Patient's condition and management plan Discussed with residents in rounds. Agree with resident's progress note. Plan: As ordered.
--- NOTE | 2017-01-17 15:31 | CT ---
PROCEDURE: CT Abdomen and Pelvis without Oral or IV contrast. HISTORY: abdominal pain, distention, hematemesis COMPARISON: CT abdomen and pelvis without IV contrast performed 07/26/16. TECHNIQUE: Contiguous axial images of the abdomen and pelvis. No oral or IV contrast administered. Coronal and Sagittal reformats generated and reviewed. Radiation dose: Total exam DLP = 1080.59 mGy-cm. This CT exam was performed using one or more of the following dose reduction techniques: Automated exposure control, adjustment of the mA and/or kV according to patient size, and/or use of iterative reconstruction technique. FINDINGS: There is limited evaluation of the solid organs without the administration of IV contrast. LOWER THORAX: No visible consolidation, pleural effusion, or pneumothorax. LIVER: Numerous (at least 5) too small to characterize hepatic hypodensities measuring up to 9 mm in the left hepatic lobe; statistically likely cysts or hemangiomas. GALLBLADDER AND BILE DUCTS: Contracted gallbladder appears otherwise grossly unremarkable. PANCREAS: Unremarkable unenhanced appearance. SPLEEN: At least 3 probable splenules measuring up to 8 mm. Otherwise unremarkable unenhanced appearance. ADRENALS: Unremarkable unenhanced appearance. KIDNEYS AND URETERS: No hydronephrosis or obstructing renal calculus. Exophytic 8 mm left midpole and 7 mm left lower pole renal lesions re-identified. BLADDER: Mild wall thickening may be exaggerated by under distension. Minimal stranding near the anterior nerve bladder wall; correlate with urinalysis in order to exclude possibility of cystitis. REPRODUCTIVE: Unremarkable. APPENDIX: No secondary signs of acute appendicitis. BOWEL: Ingested debris within the stomach limits evaluation. Lack of oral contrast limits evaluation for bowel pathology. The bowel loops appear within normal limits of caliber without evidence of intestinal obstruction. PERITONEUM: No significant free fluid. No definite free air. LYMPH NODES: No bulky lymphadenopathy identified. VASCULATURE: Scattered atherosclerotic calcifications. No aortic aneurysm. BONES: Degenerative changes of the spine. OTHER FINDINGS: Bowel containing 17 mm umbilical hernia. Small fat containing bilateral inguinal hernias. Subcutaneous foci of air within the right abdominal soft tissues ; correlate for injections. IMPRESSION: Numerous (at least 5) too small to characterize hepatic hypodensities measuring up to 9 mm; statistically likely cysts or hemangiomas. Exophytic 8 mm left midpole am 7 mm left lower pole renal lesions re-identified, indeterminate/too small to characterize. Mild wall thickening may be exaggerated by under distension. Minimal stranding near the anterior nerve bladder wall; correlate with urinalysis in order to exclude possibility of cystitis. 17 mm umbilical hernia contains bowel without evidence of obstruction. Small bilateral fat containing inguinal hernias. Subcutaneous foci of air within the right abdominal soft tissues ; correlate for injections.
--- NOTE | 2017-01-17 17:45 | CP.PCM.PN ---
Objective - Vital Signs/Intake and Output Vital Signs (last 24 hours): Temp Pulse Resp BP Pulse Ox 98.5 F 60 14 136/84 99 01/17/17 16:14 01/17/17 16:14 01/17/17 16:14 01/17/17 16:14 01/17/17 16:14 Intake and Output: 01/17/17 01/17/17 06:59 18:59 Intake Total 900 Balance 900 - Medications Medications: Current Medications Acetaminophen (Tylenol 325mg Tab) 650 mg PO Q6 PRN PRN Reason: Pain, moderate (4-7) Aspirin (Aspirin Chewable) 81 mg PO DAILY [facility] Last Admin: 01/17/17 09:22 Dose: 81 mg Carvedilol (Coreg) 6.25 mg PO Q12 [facility] Last Admin: 01/17/17 09:22 Dose: 6.25 mg Enoxaparin Sodium (Lovenox) 40 mg SC DAILY [facility] PRN Reason: Protocol Last Admin: 01/17/17 09:23 Dose: 40 mg Nitroglycerin (Nitrostat Sl Tab) 0.4 mg SL Q5M PRN PRN Reason: chest pain Pantoprazole Sodium (Protonix Ec Tab) 40 mg PO DAILY [facility] Last Admin: 01/17/17 09:25 Dose: Not Given - Labs Labs: 01/17/17 05:50 01/17/17 05:50 PT 12.4 Seconds (9.8-13.1) 01/16/17 03:21 INR 1.2 (0.9-1.2) 01/16/17 03:21 APTT 30.5 Seconds (25.6-37.1) 01/16/17 03:21 Assessment and Plan (1) SOB (shortness of breath) Status: Acute (2) Hematemesis with nausea Status: Acute (3) Abdominal pain Status: Acute (4) Diarrhea Status: Acute (5) EKG abnormalities Status: Acute (6) Diastolic dysfunction Status: Acute (7) LVH (left ventricular hypertrophy) Status: Acute (8) Atypical chest pain Status: Acute
[2017-01-18 07:30] LABS: HEMATOCRIT 40.5 % (35.0-51.0); MEAN CELL VOLUME 86.3 fl (80.0-94.0); MEAN CORPUSCULAR HEMOGLOBIN 28.5 pg (27.0-31.0); RED CELL DISTRIBUTION WIDTH 15.6 % (11.5-14.5); WHITE BLOOD COUNT 5.2 K/uL (4.8-10.8)
[2017-01-18 07:40] LABS: BLOOD UREA NITROGEN 9 mg/dl (9-20); CARBON DIOXIDE 24 mmol/L (22-30); CHLORIDE 106 mmol/L (98-107); GFR AFRICAN-AMERICAN > 60; GLUCOSE,RANDOM 107 mg/dL (75-110); POTASSIUM 3.7 MMOL/L (3.6-5.0); SODIUM 142 mmol/l (132-148)
--- NOTE | 2017-01-18 07:59 | CP.PCM.CON ---
History of Present Illness - History of Present Illness History of Present Illness: Asked by Dr. Ross for a GI consultation on this patient. 51 year old male without significant past medical history who presents to hospital with complaint of substernal discomfort and shortness of breath which started yesterday. GI called for evaluation of abdominal pain. He describes an epigastric, dull ache 5/10 intensity that is non-radiating and worse following meal consumption, associated with nausea. He denies vomiting, diarrhea, fever/ chills, weight loss, or rectal bleeding. He has been tolerating PO diet, though endorses decreased appetite. He admits to illicit drug use, most recently cocaine 1 week ago. He had a colonoscopy 5 years ago which was normal according to patient. Social history: intermittent cigarette use, social ETOH use, +illicit drug use Family history: reviewed, patient denies history of colon cancer Review of Systems - Review of Systems Review of Systems: - All other 12 point review of systems performed, negative - Cardiovascular Cardiovascular: Chest Pain - Respiratory Respiratory: Dyspnea - Gastrointestinal Gastrointestinal: Abdominal Pain - Musculoskeletal Musculoskeletal: As Per HPI. absent: Abnormal Gait, Arthralgias, Atrophy, Back Pain, Deformity, Joint Swelling, Limited Range of Motion, Loss of Height, Muscle Cramps, Muscle Weakness, Myalgias, Neck Pain, Numbness, Radiating Pain into Limb, Stiffness, Tingling, Other - Neurological Neurological: As Per HPI. absent: Abnormal Gait, Abnormal Hearing, Abnormal Movements, Abnormal Speech, Behavioral Changes, Burning Sensations, Confusion, Convulsions, Disequilibrium, Dizziness, Numbness, Focal Weakness, Frequent Falls , Headaches, Lack of Coordination, Loss of Vision, Memory Loss, Paresthesias, Radicular Pain, Restless Legs, Sensory Deficit, Syncope, Tingling, Tremor, Vertigo, Weakness, Other Visual Disturbances, Other Past Patient History - Infectious Disease Hx of Infectious Diseases: None - Past Medical History & Family History Past Medical History?: Yes - Past Social History Smoking Status: Former Smoker Alcohol: Occasional Drugs: Cannabis, Cocaine Domestic Violence: Negative - CARDIAC Hx Cardiac Disorders: Yes Hx Hypercholesterolemia: Yes - PULMONARY Hx Tuberculosis: No - NEUROLOGICAL Hx Seizures: No - HEENT Hx HEENT Problems: No - RENAL Hx Chronic Kidney Disease: No - ENDOCRINE/METABOLIC Hx Endocrine Disorders: No - HEMATOLOGICAL/ONCOLOGICAL Hx Human Immunodeficiency Virus (HIV): No - INTEGUMENTARY Hx Dermatological Problems: No - MUSCULOSKELETAL/RHEUMATOLOGICAL Hx Musculoskeletal Disorders: No Hx Falls: No - GASTROINTESTINAL Hx Gastrointestinal Disorders: No - GENITOURINARY/GYNECOLOGICAL Hx Genitourinary Disorders: No Hx Sexually Transmitted Disorders: No - PSYCHIATRIC Hx Depression: Yes Hx Post Traumatic Stress Disorder: Yes - SURGICAL HISTORY Hx Surgeries: No - ANESTHESIA Hx Anesthesia: No Meds Allergies/Adverse Reactions: Allergies Allergy/AdvReac Type Severity Reaction Status Date / Time shrimp Allergy SWELLING Verified 01/11/17 02:18 - Medications Medications: Current Medications Acetaminophen (Tylenol 325mg Tab) 650 mg PO Q6 PRN PRN Reason: Pain, moderate (4-7) Aspirin (Aspirin Chewable) 81 mg PO DAILY [facility] Last Admin: 01/17/17 09:22 Dose: 81 mg Carvedilol (Coreg) 6.25 mg PO Q12 [facility] Last Admin: 01/17/17 21:36 Dose: 6.25 mg Enoxaparin Sodium (Lovenox) 40 mg SC DAILY [facility] PRN Reason: Protocol Last Admin: 01/17/17 09:23 Dose: 40 mg Nitroglycerin (Nitrostat Sl Tab) 0.4 mg SL Q5M PRN PRN Reason: chest pain Pantoprazole Sodium (Protonix Ec Tab) 40 mg PO DAILY [facility] Last Admin: 01/17/17 09:25 Dose: Not Given Physical Exam - Constitutional Appears: Non-toxic, No Acute Distress - Head Exam Head Exam: NORMAL INSPECTION - Eye Exam Eye Exam: EOMI, Normal appearance - ENT Exam ENT Exam: Mucous Membranes Moist - Respiratory Exam Respiratory Exam: Clear to Auscultation Bilateral - Cardiovascular Exam Cardiovascular Exam: REGULAR RHYTHM, +S1, +S2 - GI/Abdominal Exam GI & Abdominal Exam: Normal Bowel Sounds, Soft, Tenderness Additional comments: mild epigastric tenderness to palpation, no rebound/guarding no palpable hepato/splenomegaly - Extremities Exam Extremities exam: Positive for: normal inspection - Neurological Exam Neurological exam: Alert, CN II-XII Intact, Oriented x3, Reflexes Normal - Psychiatric Exam Psychiatric exam: Normal Affect, Normal Mood - Skin Skin Exam: Dry, Intact, Normal Color, Warm Results - Vital Signs Recent Vital Signs: Last Vital Signs Temp 98.1 F 01/18/17 05:54 Pulse 62 01/18/17 05:54 Resp 18 01/18/17 05:54 BP 122/73 01/18/17 05:54 Pulse Ox 98 01/18/17 05:54 - Labs Result Diagrams: 01/17/17 05:50 01/18/17 05:30 Labs: Laboratory Results - last 24 hr 01/18/17 05:30 Sodium 142 Potassium 3.7 Chloride 106 Carbon Dioxide 24 Anion Gap 16 BUN 9 Creatinine 0.9 Est GFR ( Amer) > 60 Est GFR (Non-Af Amer) > 60 Random Glucose 107 Calcium 9.0 Assessment & Plan - Assessment and Plan (Free Text) Assessment: Chest pain, dyspnea - resolved Abdominal pain - dyspepsia without associated alarm features CT imaging reviewed by me showing no gross GI bowel pathology. Multiple subcentimeter hepatic hypodensities likely related to cysts. Plan: - Diet as tolerated - Chest pain has resolved, patient undergoing cardiac workup, follow up recommendations - Continue with PPI therapy - Obtain hepatitis panel given high risk behavior and presence of subcentimeter hepatic lesions. Will likely benefit from additional outpatient workup including contrast enhanced liver imaging for follow up. - Bowel regimen to prevent constipation - patient without bowel movement in past 2 days - No planned GI intervention, will sign off case. Please reconsult as necessary , thank you. Discussed with Dr. Ross.
--- NOTE | 2017-01-18 08:14 | PN ---
DATE: 01/18/2017 SUBJECTIVE: The patient seen and examined. Interim events noted. Consults noted and appreciated. The patient feels okay. No chest pain. No shortness of breath. PHYSICAL EXAMINATION: GENERAL: The patient is in no acute distress. VITAL SIGNS: Stable. HEART: S1 and S2, normal and regular. LUNGS: Good bilateral air exchange. ABDOMEN: Soft and nontender. EXTREMITIES: No edema. No calf swelling. No tenderness. No acute ischemia. CENTRAL NERVOUS SYSTEMS: Essentially unchanged. DIAGNOSTIC DATA: Available diagnostic data reviewed. Telemetry monitoring does not show any significant arrhythmia. IMPRESSION: Overall, the patient's general medical condition is stable. PLAN: As ordered. Stuart Ross MD
[2017-01-18] MEDS: Enoxaparin 40 mg Syringe SC SCH (08:55)
[2017-01-18] MEDS: Pantoprazole 40 mg EC Tab PO SCH (08:56)
[2017-01-18] MEDS ORDERED: POLYETHYLENE GLYCOL 3350 17 GM/Dose PACKET PO ONE (09:00)
--- NOTE | 2017-01-18 10:40 | CP.PCM.PN ---
Subjective - Date & Time of Evaluation Date of Evaluation: 01/18/17 Time of Evaluation: 10:40 Objective - Vital Signs/Intake and Output Vital Signs (last 24 hours): Temp Pulse Resp BP Pulse Ox 98.3 F 57 L 18 128/82 100 01/18/17 08:14 01/18/17 08:14 01/18/17 08:14 01/18/17 08:55 01/18/17 08:14 - Medications Medications: Current Medications Acetaminophen (Tylenol 325mg Tab) 650 mg PO Q6 PRN PRN Reason: Pain, moderate (4-7) Aspirin (Aspirin Chewable) 81 mg PO DAILY [facility] Last Admin: 01/18/17 08:55 Dose: 81 mg Carvedilol (Coreg) 6.25 mg PO Q12 [facility] Last Admin: 01/18/17 08:55 Dose: 6.25 mg Enoxaparin Sodium (Lovenox) 40 mg SC DAILY [facility] PRN Reason: Protocol Last Admin: 01/18/17 08:55 Dose: 40 mg Nitroglycerin (Nitrostat Sl Tab) 0.4 mg SL Q5M PRN PRN Reason: chest pain Pantoprazole Sodium (Protonix Ec Tab) 40 mg PO DAILY [facility] Last Admin: 01/18/17 08:56 Dose: 40 mg - Labs Labs: 01/18/17 07:00 01/18/17 05:30 PT 12.4 Seconds (9.8-13.1) 01/16/17 03:21 INR 1.2 (0.9-1.2) 01/16/17 03:21 APTT 30.5 Seconds (25.6-37.1) 01/16/17 03:21 Assessment and Plan (1) SOB (shortness of breath) Status: Acute (2) Hematemesis with nausea Status: Acute (3) Abdominal pain Status: Acute (4) Diarrhea Status: Acute (5) EKG abnormalities Status: Acute (6) Diastolic dysfunction Status: Acute (7) LVH (left ventricular hypertrophy) Status: Acute (8) Atypical chest pain Status: Acute
[2017-01-18] MEDS ORDERED: Potassium Chloride 20 mEq/15 ml LIQ UD PO ONE (10:41)
[2017-01-19 06:54] LABS: HEMATOCRIT 39.6 % (35.0-51.0); MEAN CELL VOLUME 86.2 fl (80.0-94.0); MEAN CORPUSCULAR HEMOGLOBIN 28.6 pg (27.0-31.0); MEAN CORPUSCULAR HGB CONC 33.2 g/dL (33.0-37.0); RED CELL DISTRIBUTION WIDTH 15.3 % (11.5-14.5); WHITE BLOOD COUNT 4.6 K/uL (4.8-10.8)
[2017-01-19 07:20] LABS: ALB/GLOB RATIO 1.2 (1.0-2.1); ALKALINE PHOSPHATASE 64 U/L (38-126); ALT/SGPT 37 U/L (21-72); AST/SGOT 29 U/L (17-59); BILIRUBIN,TOTAL 0.4 mg/dl (0.2-1.3); BLOOD UREA NITROGEN 9 mg/dl (9-20); CARBON DIOXIDE 26 mmol/L (22-30); CHLORIDE 105 mmol/L (98-107); GFR AFRICAN-AMERICAN > 60; GLUCOSE,RANDOM 92 mg/dL (75-110); SODIUM 142 mmol/l (132-148); TOTAL PROTEIN 6.5 G/DL (6.3-8.2)
--- NOTE | 2017-01-19 08:36 | PN ---
DATE: 01/19/2017 SUBJECTIVE: The patient seen and examined. Interim events noted. Consults noted and appreciated. Cardiology and gastroenterology followup and intervention noted and appreciated. The patient remains in progressive care unit, on telemetry monitoring. Complains of atypical chest pain. No shortness of breath. No abdominal pain. PHYSICAL EXAMINATION: GENERAL: The patient is in no acute distress. VITAL SIGNS: Stable. HEART: S1 and S2, normal and regular. LUNGS: Good bilateral air exchange. ABDOMEN: Soft and nontender. EXTREMITIES: No edema. No calf swelling. No tenderness. No acute ischemia. CENTRAL NERVOUS SYSTEMS: Essentially unchanged. DIAGNOSTIC DATA: Available diagnostic data reviewed. Telemetry monitoring does not show any significant arrhythmia. IMPRESSION: Overall, the patient's general medical condition is stable. PLAN: As ordered. Stuart Ross MD
[2017-01-19] MEDS: Pantoprazole 40 mg EC Tab PO SCH (08:58)
[2017-01-19] MEDS: Enoxaparin 40 mg Syringe SC SCH (08:59)
--- NOTE | 2017-01-19 13:20 | CP.PCM.PN ---
Subjective - Date & Time of Evaluation Date of Evaluation: 01/19/17 Time of Evaluation: 15:30 - Subjective Subjective: pts abd pain and diarrhea resolved. he is ambulating. Objective - Vital Signs/Intake and Output Vital Signs (last 24 hours): Temp Pulse Resp BP Pulse Ox 98.6 F 69 14 128/80 97 01/19/17 12:29 01/19/17 12:29 01/19/17 12:29 01/19/17 12:29 01/19/17 12:29 - Medications Medications: Current Medications Acetaminophen (Tylenol 325mg Tab) 650 mg PO Q6 PRN PRN Reason: Pain, moderate (4-7) Aspirin (Aspirin Chewable) 81 mg PO DAILY [facility] Last Admin: 01/19/17 08:58 Dose: 81 mg Carvedilol (Coreg) 6.25 mg PO Q12 [facility] Last Admin: 01/19/17 08:58 Dose: 6.25 mg Enoxaparin Sodium (Lovenox) 40 mg SC DAILY [facility] PRN Reason: Protocol Last Admin: 01/19/17 08:59 Dose: 40 mg Nitroglycerin (Nitrostat Sl Tab) 0.4 mg SL Q5M PRN PRN Reason: chest pain Pantoprazole Sodium (Protonix Ec Tab) 40 mg PO DAILY [facility] Last Admin: 01/19/17 08:58 Dose: 40 mg Ramipril (Altace) 1.25 mg PO DAILY [facility] Last Admin: 01/19/17 08:59 Dose: 1.25 mg - Labs Labs: 01/19/17 07:00 01/19/17 05:45 PT 12.4 Seconds (9.8-13.1) 01/16/17 03:21 INR 1.2 (0.9-1.2) 01/16/17 03:21 APTT 30.5 Seconds (25.6-37.1) 01/16/17 03:21 - Constitutional Appears: Well - Head Exam Head Exam: ATRAUMATIC, NORMAL INSPECTION, NORMOCEPHALIC - Eye Exam Eye Exam: EOMI, Normal appearance, PERRL. absent: Conjunctival injection, Nystagmus, Periorbital swelling, Periorbital tenderness, Scleral icterus Pupil Exam: NORMAL ACCOMODATION, PERRL - ENT Exam ENT Exam: Mucous Membranes Moist, Normal Exam. absent: Mucous Membranes Dry, Normal External Ear Exam, Normal Oropharynx, TM's Normal Bilaterally - Neck Exam Neck Exam: Full ROM, Normal Inspection. absent: Lymphadenopathy - Respiratory Exam Respiratory Exam: Clear to Ausculation Bilateral, NORMAL BREATHING PATTERN. absent: Accessory Muscle Use, Chest Wall Tenderness, Decreased Breath Sounds, Prolonged Expiratory Phase, Rales, Rhonchi, Wheezes, Respiratory Distress, Stridor - Cardiovascular Exam Cardiovascular Exam: REGULAR RHYTHM, +S1, +S2. absent: Bradycardia, Tachycardia , Clicks, Diastolic murmur, Gallop, Irregular Rhythm, JVD, RRR, Rubs, +S4, Murmur - GI/Abdominal Exam GI & Abdominal Exam: Soft, Normal Bowel Sounds. absent: Bruit, Distended, Firm , Guarding, Rigid, Tenderness, Diminished Bowel Sounds, Hernia, Hyperactive Bowel Sounds, Hypoactive Bowel Sounds, Organomegaly, Pulsatile Mass, Rebound, Mass - Rectal Exam Rectal Exam: Deferred - Extremities Exam Extremities Exam: Full ROM, Normal Capillary Refill, Normal Inspection. absent : Calf Tenderness, Joint Swelling, Pedal Edema, Tenderness - Back Exam Back Exam: NORMAL INSPECTION. absent: CVA tenderness (L), CVA tenderness (R), Full ROM, muscle spasm, paraspinal tenderness, rash noted, tenderness, vertebral tenderness - Neurological Exam Neurological Exam: Alert, Awake, CN II-XII Intact, Normal Gait, Oriented x3. absent: Abnormal Gait, Altered, Motor Sensory Deficit, Reflexes Normal - Psychiatric Exam Psychiatric exam: Normal Affect, Normal Mood. absent: Agitated, Anxious, Depressed, Flat Affect, Homicidal Ideation, Manic, Suicidal Ideation - Skin Skin Exam: Dry, Intact, Normal Color, Warm. absent: Abrasion, Cyanosis, Diaphoretic, Erythema, Mottled, Pallor, Pallor, Petechiae, Rash, Urticaria, Vesicles Assessment and Plan (1) SOB (shortness of breath) Status: Acute (2) Hematemesis with nausea Status: Acute (3) Abdominal pain Status: Acute (4) Diarrhea Status: Acute (5) EKG abnormalities Status: Acute (6) Diastolic dysfunction Status: Acute (7) LVH (left ventricular hypertrophy) Status: Acute (8) Atypical chest pain Status: Acute - Assessment and Plan (Free Text) Plan: for exercise nuc st in am cont current meds and tele advised against drug and etoh use bp improving on increased ramipril.
[2017-01-20 06:27] LABS: HEMATOCRIT 40.7 % (35.0-51.0); MEAN CELL VOLUME 86.1 fl (80.0-94.0); MEAN CORPUSCULAR HEMOGLOBIN 28.6 pg (27.0-31.0); MEAN CORPUSCULAR HGB CONC 33.2 g/dL (33.0-37.0); RED CELL DISTRIBUTION WIDTH 15.6 % (11.5-14.5); WHITE BLOOD COUNT 5.5 K/uL (4.8-10.8)
[2017-01-20 06:28] LABS: ALB/GLOB RATIO 1.3 (1.0-2.1); ALKALINE PHOSPHATASE 67 U/L (38-126); ALT/SGPT 53 U/L (21-72); AST/SGOT 48 U/L (17-59); BILIRUBIN,TOTAL 0.5 mg/dl (0.2-1.3); BLOOD UREA NITROGEN 12 mg/dl (9-20); CALCIUM 9.4 mg/dL (8.4-10.2); CARBON DIOXIDE 22 mmol/L (22-30); CHLORIDE 105 mmol/L (98-107); GFR AFRICAN-AMERICAN > 60; GLUCOSE,RANDOM 102 mg/dL (75-110); POTASSIUM 4.2 MMOL/L (3.6-5.0); SODIUM 140 mmol/l (132-148); TOTAL PROTEIN 7.1 G/DL (6.3-8.2)
[2017-01-20] MEDS ORDERED: Lactulose 10 gm/15 ml Syrup PO PRN (07:45)
--- NOTE | 2017-01-20 08:21 | PN ---
DATE: 01/20/2017 SUBJECTIVE: The patient is seen and examined. Interim events noted. Consults noted and appreciated. The patient remains in progressive care unit, on telemetry monitoring. The patient feels okay. No chest pain and no shortness of breath. PHYSICAL EXAMINATION GENERAL: The patient is in no acute distress. VITAL SIGNS: Stable. HEART: S1 and S2, normal and regular. LUNGS: Good bilateral air exchange. ABDOMEN: Soft and nontender. EXTREMITIES: No edema. No calf swelling. No tenderness. No acute ischemia. CENTRAL NERVOUS SYSTEMS: Exam is essentially unchanged. DIAGNOSTIC DATA: Available diagnostic data reviewed. Telemetry monitoring does not show any significant arrhythmia. IMPRESSION: Overall, the patient's general medical condition is stable and improving. The patient is scheduled for stress test today. PLAN: As ordered. Case and plan discussed with the patient. Stuart Ross MD
[2017-01-20] MEDS: Pantoprazole 40 mg EC Tab PO SCH (08:51)
--- NOTE | 2017-01-20 21:05 | CP.PCM.PN ---
Objective - Vital Signs/Intake and Output Vital Signs (last 24 hours): Temp Pulse Resp BP Pulse Ox 98.8 F 81 20 137/85 97 01/20/17 19:05 01/20/17 20:51 01/20/17 19:05 01/20/17 20:51 01/20/17 19:05 Intake and Output: 01/20/17 01/21/17 18:59 06:59 Intake Total 300 Balance 300 - Medications Medications: Current Medications Acetaminophen (Tylenol 325mg Tab) 650 mg PO Q6 PRN PRN Reason: Pain, moderate (4-7) Aspirin (Aspirin Chewable) 81 mg PO DAILY [facility] Last Admin: 01/20/17 08:51 Dose: Not Given Carvedilol (Coreg) 6.25 mg PO Q12 [facility] Last Admin: 01/20/17 20:51 Dose: 6.25 mg Docusate Sodium (Colace) 100 mg PO BID [facility] Last Admin: 01/20/17 17:25 Dose: 100 mg Lactulose (Enulose) 10 gm PO DAILY PRN PRN Reason: Constipation Last Admin: 01/20/17 17:25 Dose: 10 gm Nitroglycerin (Nitrostat Sl Tab) 0.4 mg SL Q5M PRN PRN Reason: chest pain Pantoprazole Sodium (Protonix Ec Tab) 40 mg PO DAILY [facility] Last Admin: 01/20/17 08:51 Dose: Not Given Ramipril (Altace) 2.5 mg PO DAILY [facility] Last Admin: 01/20/17 08:51 Dose: Not Given - Labs Labs: 01/20/17 06:00 01/20/17 06:00 PT 12.4 Seconds (9.8-13.1) 01/16/17 03:21 INR 1.2 (0.9-1.2) 01/16/17 03:21 APTT 30.5 Seconds (25.6-37.1) 01/16/17 03:21 Assessment and Plan (1) SOB (shortness of breath) Status: Acute (2) Hematemesis with nausea Status: Acute (3) Abdominal pain Status: Acute (4) Diarrhea Status: Acute (5) EKG abnormalities Status: Acute (6) Diastolic dysfunction Status: Acute (7) LVH (left ventricular hypertrophy) Status: Acute (8) Atypical chest pain Status: Acute
[2017-01-21 00:06] VITALS: RESP 18
[2017-01-21 05:06] VITALS: BP 128/78; PULSE 80; TEMP 97.3; O2SAT 96
[2017-01-21 06:24] LABS: HEMATOCRIT 39.3 % (35.0-51.0); MEAN CELL VOLUME 86.5 fl (80.0-94.0); MEAN CORPUSCULAR HEMOGLOBIN 28.8 pg (27.0-31.0); MEAN CORPUSCULAR HGB CONC 33.3 g/dL (33.0-37.0); RED CELL DISTRIBUTION WIDTH 15.5 % (11.5-14.5); WHITE BLOOD COUNT 5.7 K/uL (4.8-10.8)
[2017-01-21 06:36] LABS: ALB/GLOB RATIO 1.3 (1.0-2.1); ALKALINE PHOSPHATASE 72 U/L (38-126); ALT/SGPT 74 U/L (21-72); AST/SGOT 54 U/L (17-59); BILIRUBIN,TOTAL 0.3 mg/dl (0.2-1.3); BLOOD UREA NITROGEN 17 mg/dl (9-20); CARBON DIOXIDE 23 mmol/L (22-30); CHLORIDE 105 mmol/L (98-107); GFR AFRICAN-AMERICAN > 60; GLUCOSE,RANDOM 108 mg/dL (75-110); SODIUM 142 mmol/l (132-148); TOTAL PROTEIN 6.4 G/DL (6.3-8.2)
--- NOTE | 2017-01-22 16:52 | CARD ---
APPROVED REPORT Protocol: EMBER Test Type: Stress Nuclear Medications: ASA 81MG, COLACE 100MG, PROTONIX 40MG Medical History: FORMER SMOKER, CANNABIS, COCAINE, HYPERCHOLESTEROLEMIA, FAMILY HISTORY, Target HR: 171 bpm Resting ECG: normal Resting Heart Rate: 61 bpm Resting Blood Pressure: 130/90mmHg submaximum (85%): 145 bpm TEST SUMMARY EXERCISESTAGE 103:[id number]/95.0. [id number]. PRETESTHYPERV.00:[id number]/[id number]. PRETESTWARM-UP00:[id number]/[id number]. EXERCISESTAGE 103:[id number]/95.0. EXERCISESTAGE 203:[id number]/95.0. EXERCISESTAGE 301:[id number]/95.0. [id number]/85.0. POST EXERCISE Reason for Termination: Tiredness Target HR: No Max HR: 166 bpm 97% of Maximum Predicted HR: 171 bpm Exercise duration: 07:00 min:sec, 3 Stage Exercise capacity: 8.5METs Max Blood Pressure: 150/100mmHg Blood Pressure response to exercise: resting hypertension - appropriate response Heart Rate response to exercise: appropriate Chest Pain: No, none Angina index: 0 Arrhythmia: No, none ST Change: No, none Deviation: 0 mm Clinical Indications Under Appropriate Use Criteria chest pain Stress EKG Interpretation Normal exercise stress test. EXAM: Myocardial Perfusion REST/STRESS Image QualityGood Imaging Protocol The imaging protocol used to acquire images was Rest Tc-99m/stress Tc-99m 1 day Rest Spect myocardial perfusion imaging was performed in supine position 45 minutes following the injection of 10 mCi of Tc-99 Myoview. Time of rest injection: 8:03 Time of rest imagin:55 At peak stress, the patient was injected intravenously with mCi of Tc-99 tetrofosmin after an infusion time of minutes and seconds. Time of stress injection: 11:30 Time of stress imagin:30 Gated Stress Spect was performed 60 minutes after intravenous Tc-99 Myoview injection. The images were gated to evaluate regional wall motion and calculate ventricular ejection fraction. NUCLEAR IMAGE INTERPRETATION The rest and stress images show normal perfusion, normal contraction and thickening. LV Perfusion The perfusion of the left ventricle on the standard three tomographic images was within normal limits. Wall Motion good LVEF of 52% CONCLUSION 1. The patient is a 51 year old male referred for a nuclear stress test due to chest pain. He also has hypertension. His medicines include aspirin, carvedilol, altace and lovenox. The resting EKG showed sinus rhythm with T wave inversions in limb leads II, III and aVF as well as chest leads V5 and V6. Using a standard Ember protocol, the patient exercised for 7 minutes(completing 1 minute of Stage 3) at which time the test was stopped due to tiredness. He did not have any chest pain. The resting heart rate was 60 beats per minute and increased to 166 beats per minute which was 97% of the MPHR. The resting blood pressure was 130/90 and increased to 150/100 with exercise. The patient reached a workload of 8.5 mets. The rhythm was sinus and there weren't any ST segment depressions with exercise. The perfusion of the left ventricle was within normal limits on the nuclear scans. The LVEF on the gated study was 52%. 2. Impression: Normal exercise stress test without any chest pain or ischemic EKG changes at 97% of the MPHR. Normal blood pressure response to exercise. Good work capacity. LVEF of 52%. Recommendation medical treatment
== END 2017-01-21 08:05 | disposition left against medical advice (07) | DRG 143 ==
LOC: H.ER 02:43 → H.ERHOLD 04:12 → H.TEL 06:01 → OBSVTOIN 01-17 04:25
PROVIDERS: ADMIT Internal Medicine; ATTEND Internal Medicine
DX: R07.89 Other chest pain (principal); K92.0 Hematemesis; I11.9 Hypertensive heart disease without heart failure; F14.10 Cocaine abuse, uncomplicated; E78.5 Hyperlipidemia, unspecified; E78.00 Pure hypercholesterolemia, unspecified; F17.210 Nicotine dependence, cigarettes, uncomplicated; F43.10 Post-traumatic stress disorder, unspecified; I51.7 Cardiomegaly

== ENCOUNTER 2017-07-12 18:06 | Inpatient (IN) | payer MEDICAID ==
[2017-07-12 18:07] VITALS: BMI 29.9
--- NOTE | 2017-07-12 18:44 | ED PDOC ---
HPI: Psych/Substance Abuse Time Seen by Provider: 07/12/17 18:32 Chief Complaint (Nursing): Psychiatric Evaluation Chief Complaint (Provider): Suicidal Ideation History Per: Patient History/Exam Limitations: no limitations Onset/Duration Of Symptoms: Days Current Symptoms Are (Timing): Still Present Suicide/Self Injury Attempted (Context): Ingestion Modifying Factor(s): Alcohol, Marijuana, Cocaine Severity: None Associated Symptoms: Depression, Suicidal Thoughts, Suicidal Plan Involuntary Hold By: None Additional Complaint(s): 52 year old female with a past medical history of post traumatic stress disorder , bipolar disorder, schizophrenia and depression presents to the ED with suicidal ideations. The patient reports that this is not the first time he has attempted to harm himself. He states that he thinks that he is not important. The patient states that he has also been hearing voices and cannot sleep. He reports that he mainly wants to harm himself and never anyone else. Patients admits to consuming alcohol and as well as using marijuana and cocaine. Of note: Patient reports that he had a gun but he discarded of it in the [place]. Also in triage patient states that he ingested xanax but told provider that he gave them to the lady at the desk. Past Medical History Reviewed: Historical Data, Nursing Documentation, Vital Signs Vital Signs: Last Vital Signs Temp 98.9 F 07/12/17 18:13 Pulse 109 H 07/12/17 18:13 Resp 18 07/12/17 18:13 BP 124/68 07/12/17 18:13 Pulse Ox 99 07/12/17 18:13 - Medical History PMH: Anxiety, Bipolar Disorder, Depression, HTN, Hypercholesterolemia, Post Traumatic Stress Disorder, Schizophrenia Denies: Diabetes, Hepatitis, HIV, Chronic Kidney Disease, Seizures, Sexually Transmitted Disease - Surgical History Surgical History: No Surg Hx - Family History Family History: States: Unknown Family Hx - Social History Current smoker - smoking cessation education provided: Yes (Light Smoker < 10 Cigarettes Daily) Ex-Smoker (has not smoked in the last 12 months): Yes Alcohol: < 2 Drinks/Day Drugs: Cocaine, Other (marijuana) - Immunization History Hx Tetanus Toxoid Vaccination: No Hx Influenza Vaccination: Yes Hx Pneumococcal Vaccination: No - Home Medications Home Medications: Ambulatory Orders Medication Instructions Recorded Dexamethasone/Tobramycin [Tobradex 0.05 ml OU BID bottle 07/10/17 Opht Susp] Mirtazapine [Remeron] 30 mg PO HS #30 tab 07/10/17 Prazosin HCL [Minipress] 2 mg PO HS #30 cap 07/10/17 QUEtiapine [SEROquel] 50 mg PO HS #30 tab 07/10/17 Sertraline [Zoloft] 100 mg PO DAILY #30 tab 07/10/17 amLODIPine [Norvasc] 5 mg PO DAILY #30 tab 07/10/17 - Allergies Allergies/Adverse Reactions: Allergies Allergy/AdvReac Type Severity Reaction Status Date / Time shrimp Allergy Mild SWELLING Verified 07/04/17 11:57 Review of Systems ROS Statement: Except As Marked, All Systems Reviewed And Found Negative Psych: Positive for: Suicidal ideation, Other (no homicidal ideation) Physical Exam - Reviewed Nursing Documentation Reviewed: Yes Vital Signs Reviewed: Yes - Physical Exam Appears: Positive for: Non-toxic, No Acute Distress Head Exam: Positive for: NORMAL INSPECTION Skin: Positive for: Normal Color, Warm, Dry. Negative for: Rash Eye Exam: Positive for: Normal appearance, EOMI, PERRL. Negative for: Nystagmus Cardiovascular/Chest: Positive for: Regular Rate, Rhythm, Chest Non Tender. Negative for: Tachycardia Respiratory: Positive for: Normal Breath Sounds. Negative for: Rales, Rhonchi, Wheezing, Respiratory Distress Neurologic/Psych: Positive for: Alert, Oriented, Mood/Affect (tearlful/sad), Gait, Other (No tangential thinking) - Laboratory Results Result Diagrams: 07/12/17 19:56 07/12/17 19:56 - ECG O2 Sat by Pulse Oximetry: 99 (RA) Pulse Ox Interpretation: Normal - Progress ED Course And Treament: Seen by crisis team. Admitted to Dr. Alarcon Diagnosis Bipolar Disorder Medical Decision Making Medical Decision Makin Initial Impression 52 year old male presenting with suicidal ideation Initial Plan: * EKG * Acetaminophen * Alcohol Serum * Drug Screen * Salicylate * Crisis Evaluation * CBC * CXR * Urinalysis * Reevaluation 1931 EKG performed shows T wave inversion noted, 1-2-3 AVF V5 and V6 similar to old EKG on May 202016. 2037- Reevaluation Patient is resting comfortably Chest Xray performed is within normal limits. 2123 Patient evaluated by crisis and will be admitted under Dr. Mccord for Bipolar Disorder. Documented by Danna Bahena acting as a scribe for Carolynn Walsh PA-C. All medical record entries made by the Scribe were at my direction and personally dictated by me. I have reviewed the chart and agree that the record accurately reflects my personal performance of the history, physical exam, medical decision making, and the department course for this patient. I have also personally directed, reviewed, and agree with the discharge instructions and disposition. Disposition - Clinical Impression Clinical Impression: Bipolar 1 disorder - Patient ED Disposition Is Patient to be Admitted: Yes Counseled Patient/Family Regarding: Studies Performed, Diagnosis - Disposition Disposition Time: 21:24 Condition: STABLE Forms: [facility] ([place]) - Pt Status Changed To: Hospital Disposition Of: Inpatient - Admit Certification Admit to Inpatient:: After my assessment, the patient will require hospitalization for at least two midnights. This is because of the severity of symptoms shown, intensity of services needed, and/or the medical risk in this patient being treated as an outpatient. - POA Present On Arrival: None
[2017-07-12 20:07] LABS: BASO # 0.1 K/uL (0.0-0.2); BASO % 0.9 % (0.0-2.0); EOS # 0.1 K/uL (0.0-0.7); EOS % 1.2 % (0.0-4.0); HEMOGLOBIN 14.3 g/dL (12.0-18.0); LYMPH # 1.5 K/uL (1.0-4.3); LYMPH % 25.4 % (20.0-40.0); MEAN CELL VOLUME 86.9 fl (80.0-94.0); MEAN CORPUSCULAR HEMOGLOBIN 28.7 pg (27.0-31.0); MEAN PLATELET VOLUME 8.1 fl (7.2-11.7); MONO # 0.5 K/uL (0.0-0.8); MONO % 8.4 % (0.0-10.0); NEUT # 3.9 K/uL (1.8-7.0); NEUT % 64.1 % (50.0-75.0); RBC 4.99 Mil/uL (4.40-5.90)
[2017-07-12 20:13] LABS: SQUAMOUS EPITHIAL < 1 /hpf (0-5); URINE BILIRUBIN NEGATIVE (NEGATIVE); URINE BLOOD NEGATIVE (NEGATIVE); URINE CLARITY SLIGHTY-CLOUDY (Clear); URINE COLOR YELLOW (YELLOW); URINE GLUCOSE (UA) NEG (Normal); URINE HYALINE CAST 0-2 /hpf (0-2); URINE LEUKOCYTE ESTERASE NEG Leu/uL (Negative); URINE PROTEIN NEGATIVE (NEGATIVE); URINE UROBILINOGEN 0.2-1.0 mg/dL (0.2-1.0)
[2017-07-12 20:18] LABS: BARBITURATES, UR NEGATIVE (NEGATIVE)
[2017-07-12 20:30] LABS: ACETAMINOPHEN < 10.0 ug/ml (10.0-30.0); SALICYLATE < 1.0 mg/dl
[2017-07-12 20:31] LABS: ALB/GLOB RATIO 1.2 (1.0-2.1); ALBUMIN 4.1 g/dL (3.5-5.0); ALT/SGPT 54 U/L (21-72); AST/SGOT 36 U/L (17-59); BLOOD UREA NITROGEN 22 mg/dl (9-20); CALCIUM 9.1 mg/dL (8.4-10.2); GFR AFRICAN-AMERICAN > 60; GFR NON-AFRICAN AMERICAN > 60
[2017-07-12 20:45] LABS: BENZODIAZEPINES, UR NEGATIVE (NEGATIVE); OPIATES, UR POSITIVE (NEGATIVE); PHENCYCLIDINE, UR NEGATIVE (NEGATIVE)
[2017-07-12 21:58] VITALS: O2SAT 99
[2017-07-12] MEDS ORDERED: DiphenhydrAMINE 50 mg/ml Inj IM PRN (23:14)
[2017-07-12] MEDS ORDERED: Magnesium Hydroxide Susp 30 ml UD PO PRN (23:14)
[2017-07-12] MEDS ORDERED: Alum-Mag Hydrox-Simethicone Susp (30 mL) PO PRN (23:14)
--- NOTE | 2017-07-12 23:45 | PCM.BM ---
Treatment Plan Problems - Problems identified on initial assessmt Feelings of worthlessness Date Initiated: 07/12/17 Time Initiated: 23:43 Assessment reference: NA Status: Active Treatment assets and liabiliti Patient Assests: adapts well, cooperative, motivated, ADL independent, physically healthy, negotiates basic needs, good interpersonal skills Patient Liabilities: poor support system (homeless), substance abuse, other ( homeless) - Milieu Protocol Maintain good personal hygiene: daily Remind patient to perform daily oral care , daily Assist patient to perform ADL's, every shift Encourage regular showers Conduct patient checks and document Observation sheet: Q15 minutes Maintain personal safety: every shift Educate patient to report safety concerns to staff, every shift Monitor environment for contraband/sharps Medication safety: Monitor for expected outcome, potential side effects: every shift, Assess barriers to learning: every shift, Assess readiness for medication education: every shift
--- NOTE | 2017-07-13 08:58 | PCM.PSYCH ---
Initial Psychiatric Evaluation - Initial Psychiatric Evaluation Type of Admission: Voluntary Chief Complaint (in patient's own words): i was depressed Patient's Reaction to Hospitalization: pt is sad History of Present Illness and Precipitating Events: This is a 52 yr old male with h/o bipolar disorder,PTSD and polysubstance abuse and recently d/c from [facility] 07/11 after being there for 9 days because of command hallucinations telling him to shoot himself with a gun or overdose on pills as thus was the anniversary of of his mother and sister and treated with zoloft,remeron,prazosin and seroquel and now pt is presenting with the same presentation that he has been hearing voices telling him to shoot himself with a gun or overdose on few xanax he had on himself and also saying that guns are everywhere in [place] and he [place] a gun [place] and came to the hospital for admission.pt has been abusing alcohol, opiates,since his d/c but denying any withdrawls and also did cocaine and cannabis few weeks ago. Current Medications: Active Medications Generic Name Dose Route Start Last Admin Trade Name Freq PRN Reason Stop Dose Admin Acetaminophen 650 mg 07/12/17 23:14 Tylenol 325mg Tab PO Q4 PRN Pain, moderate (4-7) Al Hydrox/Mg Hydrox/Simethicone 30 ml 07/12/17 23:14 Maalox Plus 30 Ml PO Q4 PRN Dyspepsia Diphenhydramine HCl 50 mg 07/12/17 23:14 Benadryl IM Q6 PRN Extrapyramidal S/S Unable PO Diphenhydramine HCl 50 mg 07/12/17 23:14 Benadryl PO Q6 PRN Extrapyramidal Symptoms Diphenhydramine HCl 50 mg 07/12/17 23:21 Benadryl PO HS PRN Sleep Haloperidol 5 mg 07/12/17 23:14 Haldol PO Q4 PRN Agitation Haloperidol Lactate 5 mg 07/12/17 23:14 Haldol IM Q4 PRN Agitation, Unable to Take PO Lorazepam 2 mg 07/12/17 23:14 Ativan IM Q4 PRN Anxiety/Agitation,Unable PO Lorazepam 1 mg 07/12/17 23:14 Ativan PO Q4 PRN Anxiety/Agitation Magnesium Hydroxide 30 ml 07/12/17 23:14 Milk Of Magnesia PO HS PRN Constipation Past Psychiatric History - Past Psychiatric History At [facility] Nature of Treatment: psychotic depression History of ETOH/Drug Use: pt has been abusing alcohol and opiates History of Family Illness: not known Pertinent Medical Hx (Current Medical&Sleep Prob, Allergies): Allergies Allergy/AdvReac Type Severity Reaction Status Date / Time shrimp Allergy Mild SWELLING Verified 07/04/17 11:57 Dexamethasone/Tobramycin [Tobradex Opht Susp] 0.05 ml OU BID bottle 07/10/17 Mirtazapine [Remeron] 30 mg PO HS #30 tab 07/10/17 Prazosin HCL [Minipress] 2 mg PO HS #30 cap 07/10/17 QUEtiapine [SEROquel] 50 mg PO HS #30 tab 07/10/17 Sertraline [Zoloft] 100 mg PO DAILY #30 tab 07/10/17 amLODIPine [Norvasc] 5 mg PO DAILY #30 tab 07/10/17 pt has hypertension and takes norvasc 5 mg daily Review of Systems - Review of Systems All systems: reviewed and no additional remarkable complaints except Mental Status Examination - Personal Presentation Personal Presentation: Looks stated age - Affect Affect: Constricted - Motor Activity Motor Activity: Calm - Reliability in Providing Information Reliability in Providing Information: Poor, due to alteration in thoughts - Speech Speech: Relevant - Formal Thought Process Formal Thought Process: Paranoia, Flight of ideas - Hallucinations/Delusions Hallucinations: Auditory - Obsessions/Compulsions Obsessions: No Compulsions: No - Cognitive Functions Orientation: Person, Place, Situation, Time Sensorium: Alert Attention/Concentration: Easily distracted Abstract Thinking: As evidence by literal perception of proverbs Estimate of Intelligence: Average Judgement: Imparied, as evidence by: Poor judgement, Imparied, as evidence by: Lack of insight into illness Memory: Recent intact, as evidence by: Ability to recall events of the day, Remote intact, as evidenced by: Ability to recall historical events - Risk Risk: Diminished functioning - Strength & Assets Inventory Strength & Assets Inventory: Family support DSM 5 DX - DSM 5 DSM 5 Diagnosis: bipolar disorder,most recent episode mixed h/o PTSD - Recommended/Plan of Treatment Treatment Recommendations and Plan of Treatment: pt has agreed to start zoloft 100 mg daily and remeron 30 mg hs and prazosin 2 mg hs .will continue to engage pt in therapy and groups. medical consult Ativan prn for any alcohol withdrawl and clonidind for opiate withdrawl.
--- NOTE | 2017-07-13 09:09 | CARD ---
APPROVED REPORT EKG Measurement Heart [id number] <Conclusion> Normal sinus rhythm Possible Left atrial enlargement T wave abnormality, consider inferolateral ischemia Abnormal ECG
--- NOTE | 2017-07-13 09:10 | RAD ---
HISTORY: routine COMPARISON: 01/16/2017 FINDINGS: LUNGS: No active pulmonary disease. PLEURA: No significant pleural effusion identified, no pneumothorax apparent. CARDIOVASCULAR: No interval change. OSSEOUS STRUCTURES: No significant abnormalities. VISUALIZED UPPER ABDOMEN: Normal. OTHER FINDINGS: None. IMPRESSION: No evidence of focal infiltrate or CHF. No interval change.
[2017-07-13 10:33] LABS: T4 7.49 ug/dl (5.5-11.0)
[2017-07-14 13:58] VITALS: BP 137/91; PULSE 74; RESP 18; TEMP 98.1
--- NOTE | 2017-07-14 15:02 | PCM.PYCHDC ---
Mental Status Examination - Mental Status Examination Orientation: Person, Place, Situation, Time Memory: Intact Mood: Neutral Affect: Broad Speech: Appropriate Attention: WNL Concentration: WNL Association: WNL Fund of Knowledge: WNL Formal Thought Process: No Impairment Description of patient's judgement and insight: fair insight and judgement Psychotic Thoughts and Behaviors: pt denied any current perceptual disturbances, non elicited Suicidal Ideation: No Current Homicidal Ideation?: No Discharge Summary - Discharge Note Reason for Hospitalization: This is a 52 yr old male with h/o bipolar disorder,PTSD and polysubstance abuse and recently d/c from [facility] [place] [facility] 07/11 after being there for 9 days because of command hallucinations telling him to shoot himself with a gun or overdose on pills as thus was the anniversary of of his mother and sister and treated with zoloft,remeron,prazosin and seroquel and now pt is presenting with the same presentation that he has been hearing voices telling him to shoot himself with a gun or overdose on few xanax he had on himself and also saying that guns are everywhere in [place] and he bought a gun but than threw it in the river and came to the hospital for admission.pt has been abusing alcohol, opiates,since his d/c but denying any withdrawls and also did cocaine and cannabis few weeks ago. Psychiatric History (includes Medical, Family, Personal Hx): psychotic depression Laboratory Data: Abnormal Lab Results 07/13/17 07/13/17 09:38 09:38 Hemoglobin A1c 5.6 RPR Nonreactive Consultations:: List each consultation separately and include: 1. Reason for request. 2. Findings. 3. Follow-up Summary of Hospital Course include:: 1. Description of specific treatment plan utilized for patients during their course of treatmen. 2. Summarize the time- course for resolution of acute symptoms and/or regressed behaviors. 3. Describe issues identified and worked on during hospitalization. 4. Describe medication utilized. 5. Describe medical problems identified and treated. 6. Reassessment of suicide risk Summary of Hospital Course: pt on admission was started on remeron 30mg qhs, haldol prn pt requested to be discharged against medical advise pt reported clearing off of the hallucinations discussed with pt risk of relapse on discharge and need to continue treatment to be able to reffer to inpatient rehab pt declined pt mental status was stable denied any current suicidal or homicidal ideations denied perceptual disturbances, non elicited pt at current mental status not danger to self or others, reported having appointment at [facility] - Final Diagnosis (DSM 5) Condition upon Discharge: STABLE DSM 5: 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
--- NOTE | 2017-07-15 09:46 | CON ---
DATE: MEDICAL CONSULTATION CHIEF COMPLAINT: Suicidal ideation. HISTORY OF PRESENT ILLNESS: This is a 52-year-old male who is a known case of posttraumatic stress syndrome, schizophrenia, and depression who was having suicidal ideation, so the patient was brought in to Emergency Room and medical consult was called for medical issue, monitoring, and management. The patient denies currently any specific medical complaints. REVIEW OF SYSTEMS: Negative for headache, dizziness, syncope, loss of consciousness, chest pain, shortness of breath, nausea, vomiting, diarrhea, constipation, any new joint or extremity pain. Review of systems of all other organ system is unremarkable. PAST MEDICAL HISTORY: Significant for elevated cholesterol, schizophrenia, depression, and posttraumatic stress syndrome. PAST SURGICAL HISTORY: Unremarkable. PERSONAL HISTORY: The patient is currently nonsmoker and nondrinker. No substance abuse. MEDICATIONS: As per reconciliation sheet, which was reviewed and ordered. ALLERGIES: THE PATIENT IS NOT ALLERGIC TO ANY MEDICATIONS, BUT DOES HAVE ALLERGY TO SHRIMPS. FAMILY HISTORY: Noncontributory. PHYSICAL EXAMINATION: VITAL SIGNS: A well-built, well-nourished 52-year-old male, in no acute distress. VITAL SIGNS: Temperature afebrile, pulse 80, respirations 18, blood pressure 129/74, and saturations 92%. HEENT: Pupils reacting to light. No JVD. No thyromegaly. No lymphadenopathy. No nystagmus. Normocephalic and atraumatic skull. HEART: S1 and S2, normal and regular. No significant murmur, gallop or rub is heard. LUNGS: Shows good bilateral air exchange. No rales or rhonchi. ABDOMEN: Soft and nontender. No organomegaly noted. Bowel sounds are present and normal. EXTREMITIES: No edema. No calf swelling. No tenderness. No acute ischemia. 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 There is no sign of any acute gross focal motor or sensory neurological deficit. DIAGNOSTIC DATA: Available diagnostic data reviewed. WBC 6, hemoglobin , hematocrit 43.4, and platelets 274,000. Sodium 143, potassium 4.1, chloride 100, bicarb 24, BUN 22, and creatinine 1.1. SMA-12 is unremarkable. Cholesterol profile shows cholesterol level of 249. Urine toxicology is positive for opioid, cocaine, and marijuana and alcohol. ADMITTING IMPRESSION: The patient with suicidal ideation who is also a known case of elevated cholesterol. PLAN: Plan as ordered. Case and plan discussed with patient. We will follow the patient with you. Thank you for the consult. Stuart Ross MD
== END 2017-07-14 15:20 | disposition home or self-care (01) | DRG 430 ==
LOC: H.ER 18:06 → H.ERHOLD 21:53 → H.PSYCH 23:06
PROVIDERS: ADMIT Psychiatry & Neurology Psychiatry; ATTEND Psychiatry & Neurology Psychiatry
PROC: GZHZZZZ Group Psychotherapy (ICD-10-PCS; principal; 2017-07-12)
PROC: GZ58ZZZ Individual Psychotherapy, Cognitive-Behavioral (ICD-10-PCS; 2017-07-12)
DX: F31.60 Bipolar disorder, current episode mixed, unspecified (principal); F14.151 Cocaine abuse with cocaine-induced psychotic disorder with hallucinations; R45.851 Suicidal ideations; F12.90 Cannabis use, unspecified, uncomplicated; F43.10 Post-traumatic stress disorder, unspecified; F10.129 Alcohol abuse with intoxication, unspecified; Y90.1 Blood alcohol level of 20-39 mg/100 ml; F20.9 Schizophrenia, unspecified; I10 Essential (primary) hypertension; E78.00 Pure hypercholesterolemia, unspecified; F41.9 Anxiety disorder, unspecified; F17.210 Nicotine dependence, cigarettes, uncomplicated; Z91.013 Allergy to seafood

== ENCOUNTER 2017-07-31 05:39 | Observation (INO) | payer MEDICAID, OTHER ==
[2017-07-31 05:39] VITALS: BMI 29.9
[2017-07-31 06:38] LABS: EOS # 0.1 K/uL (0.0-0.7); EOS % 1.9 % (0.0-4.0); HEMOGLOBIN 12.3 g/dL (12.0-18.0); LYMPH % 27.9 % (20.0-40.0); MEAN CELL VOLUME 86.9 fl (80.0-94.0); MEAN CORPUSCULAR HEMOGLOBIN 29.1 pg (27.0-31.0); MEAN CORPUSCULAR HGB CONC 33.6 g/dL (33.0-37.0); MONO # 2.3 K/uL (0.0-0.8); NEUT # 2.7 K/uL (1.8-7.0); NEUT % 37.9 % (50.0-75.0); NRBC % 0.1 % (0.0-0.0); PLATELET COUNT 223 K/uL (130-400); RBC 4.24 Mil/uL (4.40-5.90); RED CELL DISTRIBUTION WIDTH 16.5 % (11.5-14.5); WHITE BLOOD COUNT 7.1 K/uL (4.8-10.8)
--- NOTE | 2017-07-31 07:02 | ED PDOC ---
HPI: Chest Pain Time Seen by Provider: 07/31/17 05:50 Chief Complaint (Nursing): Chest Pain Chief Complaint (Provider): Chest Pain History Per: Patient History/Exam Limitations: no limitations Onset/Duration Of Symptoms: Days (x 3) Current Symptoms Are (Timing): Still Present Additional Complaint(s): 52 year old male with a history of HTN, high cholesterol and bipolar disorder presents to the ED with chest pain for the last two hours and dizziness. Pain started at rest and is non radiating. Also complains of rectal bleeding for the last three days. Reports all bowel movements have been bright red with more blood than stool. Patient was admitted in April for chest pain and signed out against medical advice before the cardiac catherization. Denies shortness of breath. PMD: none provided Past Medical History Reviewed: Historical Data, Nursing Documentation, Vital Signs Vital Signs: Last Vital Signs Temp 98.3 F 07/31/17 19:48 Pulse 97 H 07/31/17 19:48 Resp 16 07/31/17 19:48 BP 126/69 07/31/17 19:48 Pulse Ox 98 07/31/17 19:48 - Medical History PMH: Anxiety, Bipolar Disorder, Depression, HTN, Hypercholesterolemia, Post Traumatic Stress Disorder, Schizophrenia Denies: Diabetes, Hepatitis, HIV, Chronic Kidney Disease, Seizures, Sexually Transmitted Disease - Surgical History Surgical History: No Surg Hx - Family History Family History: States: Unknown Family Hx - Immunization History Hx Tetanus Toxoid Vaccination: No Hx Influenza Vaccination: Yes Hx Pneumococcal Vaccination: No - Home Medications Home Medications: Ambulatory Orders Medication Instructions Recorded Mirtazapine [Remeron] 30 mg PO HS #30 tab 07/10/17 Prazosin HCL [Minipress] 2 mg PO HS #30 cap 07/10/17 QUEtiapine [SEROquel] 50 mg PO HS #30 tab 07/10/17 Sertraline [Zoloft] 100 mg PO DAILY #30 tab 07/10/17 amLODIPine [Norvasc] 5 mg PO DAILY #30 tab 07/10/17 - Allergies Allergies/Adverse Reactions: Allergies Allergy/AdvReac Type Severity Reaction Status Date / Time shrimp Allergy Mild SWELLING Verified 07/31/17 05:57 Review of Systems ROS Statement: Except As Marked, All Systems Reviewed And Found Negative Cardiovascular: Positive for: Chest Pain Gastrointestinal: Positive for: Other (rectal bleeding) Physical Exam - Reviewed Nursing Documentation Reviewed: Yes Vital Signs Reviewed: Yes - Physical Exam Appears: Positive for: Non-toxic, No Acute Distress Head Exam: Positive for: ATRAUMATIC, NORMOCEPHALIC Skin: Positive for: Normal Color, Warm, Dry Eye Exam: Positive for: EOMI, Normal appearance, PERRL Neck: Positive for: Normal, Painless ROM, Supple Cardiovascular/Chest: Positive for: Regular Rate, Rhythm. Negative for: Murmur Respiratory: Positive for: Normal Breath Sounds. Negative for: Respiratory Distress Gastrointestinal/Abdominal: Positive for: Normal Exam, Soft Back: Positive for: Normal Inspection Rectal: Positive for: Normal Exam (brown stool) Extremity: Positive for: Normal ROM. Negative for: Deformity Neurologic/Psych: Positive for: Alert, Oriented. Negative for: Motor/Sensory Deficits - Laboratory Results Result Diagrams: 07/31/17 06:34 07/31/17 06:34 - ECG O2 Sat by Pulse Oximetry: 98 (RA) Pulse Ox Interpretation: Normal Medical Decision Making Medical Decision Making: Time; 06:02 A/P history of HTN, high cholesterol adn bipolar disorder presenting with chest pain and rectal bleeding --given risk factors will check cardiac bio markers --EKG unchanged from prior Paradi Tender for rectal exam was Nurse Satnam England. Initial Plan: --Blood type and screen --EKG --Alcohol serum --CMP --Urine drug --Lipase --Troponin I --CBC with differentials --PTT --Prothrombin Time --Chest x-ray --Protonix Inj 40 mg IVP --Occult blood --Urinalysis Scribe Attestation: Documented by Meli Martinez acting as a scribe Otis Ascencio MD. Scribe Attestation: All medical record entries made by the Scribe were at my direction and personally dictated by me. I have reviewed the chart and agree that the record accurately reflects my personal performance of the history, physical exam, medical decision making, and the department course for this patient. I have also personally directed, reviewed, and agree with the discharge instructions and disposition Disposition - Clinical Impression Clinical Impression: Acute chest pain - Patient ED Disposition Is Patient to be Admitted: Transfer of Care - Disposition Disposition: Transfer of Care Disposition Time: 07:00 Condition: FAIR Patient Signed Over To: Eladia Murguia
[2017-07-31 07:07] LABS: INR 0.9 (0.9-1.2); PARTIAL THROMBOPLASTIN TIME 31.2 Seconds (25.6-37.1); PROTHROMBIN TIME 10.1 Seconds (9.8-13.1)
[2017-07-31 07:28] LABS: ALB/GLOB RATIO 1.1 (1.0-2.1); ALBUMIN 3.8 g/dL (3.5-5.0); ALT/SGPT 64 U/L (21-72); AST/SGOT 35 U/L (17-59); BLOOD UREA NITROGEN 21 mg/dl (9-20); CALCIUM 9.1 mg/dL (8.4-10.2); GFR AFRICAN-AMERICAN > 60; GFR NON-AFRICAN AMERICAN > 60; LIPASE 683 U/L (23-300)
--- NOTE | 2017-07-31 07:58 | ED PDOC ---
- Laboratory Results Result Diagrams: 08/01/17 05:10 08/01/17 00:45 - ECG O2 Sat by Pulse Oximetry: 94 Medical Decision Making Medical Decision Makin:00 -Patient was endorsed to me by Dr. Ascencio, pending labs and x-ray. 09:22 CXR FINDINGS: LUNGS: Clear. PLEURA: No pneumothorax or pleural fluid seen. CARDIOVASCULAR: Cardiomegaly OSSEOUS STRUCTURES: No significant abnormalities. VISUALIZED UPPER ABDOMEN: Normal. OTHER FINDINGS: None. IMPRESSION: No acute infiltrates Cardiomegaly. 10:00 -Patient was admitted to the hospitalist for chest pain. No ASA will be given at this point considering recent bloody stool considering low DUTCH score. Disposition Discussed With DrDestin: Julio Schneider Doctor Will See Patient In The: ED Counseled Patient/Family Regarding: Studies Performed, Diagnosis - Clinical Impression Clinical Impression: Acute chest pain - POA Present On Arrival: None - Disposition Disposition: Hospitalized as Observation Patient Disposition Time: 10:10 Condition: FAIR DUTCH Risk Score for UA/NSTEMI - DUTCH Risk Score Age > 64: NO 3 or more CAD Risk Factors: YES Known CAD (Stenosis greater than 50%): NO Aspirin use in past 7 days: NO Severe Angina: NO EKG ST changes greater than 0.5mm: NO Positive Cardiac Marker: NO DUTCH Score: 1 Risk %: 5%
[2017-07-31 08:27] LABS: BARBITURATES, UR NEGATIVE (NEGATIVE); BENZODIAZEPINES, UR POSITIVE (NEGATIVE); OPIATES, UR NEGATIVE (NEGATIVE); PHENCYCLIDINE, UR NEGATIVE (NEGATIVE)
[2017-07-31 08:46] LABS: URINE BILIRUBIN NEGATIVE (NEGATIVE); URINE BLOOD NEGATIVE (NEGATIVE); URINE CLARITY CLEAR (Clear); URINE COLOR YELLOW (YELLOW); URINE GLUCOSE (UA) NEG (Normal); URINE LEUKOCYTE ESTERASE NEG Leu/uL (Negative); URINE PROTEIN NEGATIVE (NEGATIVE); URINE UROBILINOGEN 0.2-1.0 mg/dL (0.2-1.0)
--- NOTE | 2017-07-31 09:23 | RAD ---
PROCEDURE: CHEST RADIOGRAPH, 1 VIEW HISTORY: cp COMPARISON: Comparison chest 07/12/2017 FINDINGS: LUNGS: Clear. PLEURA: No pneumothorax or pleural fluid seen. CARDIOVASCULAR: Cardiomegaly OSSEOUS STRUCTURES: No significant abnormalities. VISUALIZED UPPER ABDOMEN: Normal. OTHER FINDINGS: None. IMPRESSION: No acute infiltrates Cardiomegaly.
[2017-07-31] MEDS ORDERED: Alum-Mag Hydrox-Simethicone Susp (30 mL) PO PRN (12:15)
[2017-07-31 12:25] LABS: ANISOCYTOSIS SLIGHT; EOSINOPHIL 3 % (0-7); LYMPHOCYTE 22 % (20-50); MONOCYTE 5 % (0-10); NEUTROPHIL 70 % (42-75); PLATELET ESTIMATE NORMAL (NORMAL); TOTAL CELLS COUNTED 100
--- NOTE | 2017-07-31 12:34 | CP.PCM.HP ---
History of Present Illness - History of Present Illness History of Present Illness: CC: Chest pain This is a 52 year old male with past medical history of hyperlipidemia, hypertension, Bipolar disorder, schizophrenia, PTSD, anxiety, who presents to the ED with the complaint of chest pain. Upon my arrival the patient was sleeping but arousable; however he was not cooperative with history taking. Per the record he had chest pain for 2 hours prior to coming to the ED. This pain is substernal, nonradiating, nonreproducible, sharp, constant, and not associated with exertion. He also has noted that he has had a large amount of painless rectal bleeding for the last 3 days. Of note the patient had a previous admission in April for chest pain but signed out against medical advice before the cardiac catheterization. In the ED, the patient was found to have no white count and normal H&H of 12.3/36.8 with normal MCV (no evidence of iron deficiency anemia), However occult stool is +. PT/INR is 0.9 and PTT is 31.2. CMP shows no acute changes. Lipase is mildly elevated at 683 but not elevated enough for pancreatitis and the patient was not complaining of abdominal or epigastric discomfort upon arrival. Troponin is within normal limits. Drug tox reveals + cocaine. Given these findings, the patient is to be placed on telemetry observation to rule out ACS and for GI evaluation given + Hemoccult. Present on Admission - Present on Admission Any Indicators Present on Admission: No History of DVT/PE: No History of Uncontrolled Diabetes: No Review of Systems - Review of Systems Systems not reviewed;Unavailable: Uncooperative Past Patient History - Infectious Disease Hx of Infectious Diseases: None - Past Medical History & Family History Past Medical History?: Yes Past Family History: Reviewed and not pertinent - Past Social History Smoking Status: Light Smoker < 10 Cigarettes Daily Drugs: Cocaine - CARDIAC Hx Cardiac Disorders: Yes Hx Hypercholesterolemia: Yes - PULMONARY Hx Tuberculosis: No - NEUROLOGICAL Hx Seizures: No - HEENT Hx HEENT Problems: No - RENAL Hx Chronic Kidney Disease: No - ENDOCRINE/METABOLIC Hx Endocrine Disorders: No - HEMATOLOGICAL/ONCOLOGICAL Hx Human Immunodeficiency Virus (HIV): No - INTEGUMENTARY Hx Dermatological Problems: No - MUSCULOSKELETAL/RHEUMATOLOGICAL Hx Musculoskeletal Disorders: No Hx Falls: No - GASTROINTESTINAL Hx Gastrointestinal Disorders: No - GENITOURINARY/GYNECOLOGICAL Hx Sexually Transmitted Disorders: No - PSYCHIATRIC Hx Psychophysiologic Disorder: Yes Hx Anxiety: Yes Hx Bipolar Disorder: Yes Hx Post Traumatic Stress Disorder: Yes - SURGICAL HISTORY Hx Surgeries: No - ANESTHESIA Hx Anesthesia: No Meds Allergies/Adverse Reactions: Allergies Allergy/AdvReac Type Severity Reaction Status Date / Time shrimp Allergy Mild SWELLING Verified 07/31/17 05:57 Physical Exam - Additional Findings Additional findings: Physical exam: Constitutional- cooperative with physical exam, somnolent but arousable Head- NCAT, PERRL Eye- PERRL, EOMI ENT- normal exam, MMM. Neck- normal inspection, supple, no JVD Respiratory- CTAB, no wheezes rales rhonchi Cardiovascular- RRR, +S1, +S2 no MRG GI/Abdominal- normal bowel sounds, soft, no mass, no hsm Skin- warm, dry Extremities Exam- normal capillary refill, normal inspection Neurological Exam- alert, awake, oriented Psych- normal mood, normal affect Results - Vital Signs Recent Vital Signs: Last Vital Signs Temp 98.1 F 07/31/17 11:30 Pulse 76 07/31/17 11:30 Resp 18 07/31/17 11:30 BP 123/76 07/31/17 11:30 Pulse Ox 95 07/31/17 11:30 - Labs Result Diagrams: 07/31/17 06:34 07/31/17 06:34 Labs: Laboratory Results - last 24 hr 07/31/17 07/31/17 07/31/17 06:25 06:34 06:34 WBC 7.1 RBC 4.24 L Hgb 12.3 D Hct 36.8 MCV 86.9 MCH 29.1 MCHC 33.6 RDW 16.5 H Plt Count 223 MPV 8.0 Neut % (Auto) 37.9 L Lymph % (Auto) 27.9 [place] % (Auto) 32.3 H Eos % (Auto) 1.9 Baso % (Auto) 0.0 Neut # (Auto) 2.7 Lymph # (Auto) 2.0 [place] # (Auto) 2.3 H Eos # (Auto) 0.1 Baso # (Auto) 0.0 Neutrophils % (Manual) 70 Lymphocytes % (Manual) 22 Monocytes % (Manual) 5 Eosinophils % (Manual) 3 Platelet Estimate Normal Anisocytosis (manual) Slight PT INR APTT Sodium 143 Potassium 4.4 Chloride 108 H Carbon Dioxide 21 L Anion Gap 18 BUN 21 H Creatinine 1.1 Est GFR ( Amer) > 60 Est GFR (Non-Af Amer) > 60 Random Glucose 126 H Calcium 9.1 Total Bilirubin 0.4 AST 35 ALT 64 Alkaline Phosphatase 88 Troponin I 0.0190 Total Protein 7.2 Albumin 3.8 Globulin 3.4 Albumin/Globulin Ratio 1.1 Lipase 683 H Urine Color Urine Clarity Urine pH Ur Specific [place] Urine Protein Urine Glucose (UA) Urine Ketones Urine Blood Urine Nitrate Urine Bilirubin Urine Urobilinogen Ur Leukocyte Esterase Urine RBC (Auto) Urine Microscopic WBC Stool Occult Blood Urine Opiates Screen Urine Methadone Screen Ur Barbiturates Screen Ur Phencyclidine Scrn Ur Amphetamines Screen U Benzodiazepines Scrn U Oth Cocaine Metabols U Cannabinoids Screen Alcohol, Quantitative < 10 Blood Type B POSITIVE Blood Type Confirm Antibody Screen Negative BBK History Checked No verified bt 07/31/17 07/31/17 07/31/17 06:34 06:34 07:40 WBC RBC Hgb Hct MCV MCH MCHC RDW Plt Count MPV Neut % (Auto) Lymph % (Auto) [place] % (Auto) Eos % (Auto) Baso % (Auto) Neut # (Auto) Lymph # (Auto) [place] # (Auto) Eos # (Auto) Baso # (Auto) Neutrophils % (Manual) Lymphocytes % (Manual) Monocytes % (Manual) Eosinophils % (Manual) Platelet Estimate Anisocytosis (manual) PT 10.1 INR 0.9 APTT 31.2 Sodium Potassium Chloride Carbon Dioxide Anion Gap BUN Creatinine Est GFR ( Amer) Est GFR (Non-Af Amer) Random Glucose Calcium Total Bilirubin AST ALT Alkaline Phosphatase Troponin I Total Protein Albumin Globulin Albumin/Globulin Ratio Lipase Urine Color Urine Clarity Urine pH Ur Specific [place] Urine Protein Urine Glucose (UA) Urine Ketones Urine Blood Urine Nitrate Urine Bilirubin Urine Urobilinogen Ur Leukocyte Esterase Urine RBC (Auto) Urine Microscopic WBC Stool Occult Blood Positive H Urine Opiates Screen Urine Methadone Screen Ur Barbiturates Screen Ur Phencyclidine Scrn Ur Amphetamines Screen U Benzodiazepines Scrn U Oth Cocaine Metabols U Cannabinoids Screen Alcohol, Quantitative Blood Type Blood Type Confirm B POSITIVE Antibody Screen BBK History Checked 07/31/17 07/31/17 08:00 08:00 WBC RBC Hgb Hct MCV MCH MCHC RDW Plt Count MPV Neut % (Auto) Lymph % (Auto) [place] % (Auto) Eos % (Auto) Baso % (Auto) Neut # (Auto) Lymph # (Auto) [place] # (Auto) Eos # (Auto) Baso # (Auto) Neutrophils % (Manual) Lymphocytes % (Manual) Monocytes % (Manual) Eosinophils % (Manual) Platelet Estimate Anisocytosis (manual) PT INR APTT Sodium Potassium Chloride Carbon Dioxide Anion Gap BUN Creatinine Est GFR ( Amer) Est GFR (Non-Af Amer) Random Glucose Calcium Total Bilirubin AST ALT Alkaline Phosphatase Troponin I Total Protein Albumin Globulin Albumin/Globulin Ratio Lipase Urine Color Yellow Urine Clarity Clear Urine pH 6.0 Ur Specific [place] 1.012 Urine Protein Negative Urine Glucose (UA) Neg Urine Ketones Negative Urine Blood Negative Urine Nitrate Negative Urine Bilirubin Negative Urine Urobilinogen 0.2-1.0 Ur Leukocyte Esterase Neg Urine RBC (Auto) 1 Urine Microscopic WBC < 1 Stool Occult Blood Urine Opiates Screen Negative Urine Methadone Screen Negative Ur Barbiturates Screen Negative Ur Phencyclidine Scrn Negative Ur Amphetamines Screen Negative U Benzodiazepines Scrn Positive U Oth Cocaine Metabols Positive H U Cannabinoids Screen Negative Alcohol, Quantitative Blood Type Blood Type Confirm Antibody Screen BBK History Checked Assessment & Plan - Assessment and Plan (Free Text) Plan: ASSESSMENT/PLAN 52 yo male admitted for chest pain and ACS evaluation along with c/o rectal bleeding. 1) Chest pain, evaluate for acute coronary syndrome,also may be GI related - Place on telemetry observation - Serial troponins x 3 - EKG nonischemic, will repeat in AM - Consider cardiac consultation if troponins become elevated - Nitrostat PRN for chest pain - Lipid profile - Chest pain may be related to cocaine abuse (coronary vasospasm is in differential) 2) Hematochezia - No evidence of acute bleed on labwork other than occult + stool; no witnessed bleeding - GI consultation with Dr. Brennan for further workup - Repeat CBC to trend - Protonix IV given in ED - Maalox PRN for epigastric discomfort - Zofran PRN for nausea/vomiting - Heart healthy diet 3) Hypertension - Monitor 4) Hypercholesterolemia - Statin 5) Bipolar disorder, schizophrenia - Continue Seroquel 50 mg po HS - continue Zoloft 100 mg po daily 6) DVT prophylaxis - SCDs (no heparin due to possibility of bleeding)
[2017-07-31 12:59] LABS: MONO % 32.3 % (0.0-10.0)
[2017-07-31 15:06] LABS: HDL CHOLESTEROL 80 MG/DL (30-70)
[2017-07-31 15:16] LABS: LDL CHOLESTEROL 79 mg/dL (0-129)
[2017-08-01 02:42] LABS: BLOOD UREA NITROGEN 16 mg/dl (9-20); CALCIUM 8.9 mg/dL (8.4-10.2); GFR AFRICAN-AMERICAN > 60; GFR NON-AFRICAN AMERICAN > 60
[2017-08-01 05:50] LABS: HEMOGLOBIN 12.7 g/dL (12.0-18.0); MEAN CELL VOLUME 87.3 fl (80.0-94.0); MEAN CORPUSCULAR HEMOGLOBIN 28.8 pg (27.0-31.0); MEAN CORPUSCULAR HGB CONC 32.9 g/dL (33.0-37.0); RBC 4.42 Mil/uL (4.40-5.90); RED CELL DISTRIBUTION WIDTH 16.2 % (11.5-14.5); WHITE BLOOD COUNT 4.9 K/uL (4.8-10.8)
[2017-08-01 08:35] VITALS: BP 133/92; PULSE 79; RESP 20; TEMP 97.7
--- NOTE | 2017-08-01 10:52 | CP.PCM.DIS ---
Provider - Provider Date of Admission: 07/31/17 10:10 Attending physician: Avel Schneider DO Time Spent in preparation of Discharge (in minutes): 25 Diagnosis - Discharge Diagnosis (1) Chest pain Status: Acute Comment: chest pain non-cardiac. serial Troponins and EKG were negative for ischemic events (2) Rectal bleeding Status: Acute Comment: Hgb/Hct: stable, 12.7/38.6. advised follow up with PCP Hospital Course - Lab Results Lab Results: Most Recent Lab Values WBC 4.9 K/uL (4.8-10.8) 08/01/17 05:10 RBC 4.42 Mil/uL (4.40-5.90) 08/01/17 05:10 Hgb 12.7 g/dL (12.0-18.0) 08/01/17 05:10 Hct 38.6 % (35.0-51.0) 08/01/17 05:10 MCV 87.3 fl (80.0-94.0) 08/01/17 05:10 MCH 28.8 pg (27.0-31.0) 08/01/17 05:10 MCHC 32.9 g/dL (33.0-37.0) L 08/01/17 05:10 RDW 16.2 % (11.5-14.5) H 08/01/17 05:10 Plt Count 228 K/uL (130-400) 08/01/17 05:10 MPV 8.0 fl (7.2-11.7) 07/31/17 06:34 Neut % (Auto) 37.9 % (50.0-75.0) L 07/31/17 06:34 Lymph % (Auto) 27.9 % (20.0-40.0) 07/31/17 06:34 Gordon % (Auto) 32.3 % (0.0-10.0) H 07/31/17 06:34 Eos % (Auto) 1.9 % (0.0-4.0) 07/31/17 06:34 Baso % (Auto) 0.0 % (0.0-2.0) 07/31/17 06:34 Neut # (Auto) 2.7 K/uL (1.8-7.0) 07/31/17 06:34 Lymph # (Auto) 2.0 K/uL (1.0-4.3) 07/31/17 06:34 Gordon # (Auto) 2.3 K/uL (0.0-0.8) H 07/31/17 06:34 Eos # (Auto) 0.1 K/uL (0.0-0.7) 07/31/17 06:34 Baso # (Auto) 0.0 K/uL (0.0-0.2) 07/31/17 06:34 Neutrophils % (Manual) 70 % (42-75) 07/31/17 06:34 Lymphocytes % (Manual) 22 % (20-50) 07/31/17 06:34 Monocytes % (Manual) 5 % (0-10) 07/31/17 06:34 Eosinophils % (Manual) 3 % (0-7) 07/31/17 06:34 Platelet Estimate Normal (NORMAL) 07/31/17 06:34 Anisocytosis (manual) Slight 07/31/17 06:34 PT 10.1 Seconds (9.8-13.1) 07/31/17 06:34 INR 0.9 (0.9-1.2) 07/31/17 06:34 APTT 31.2 Seconds (25.6-37.1) 07/31/17 06:34 Sodium 142 mmol/l (132-148) 08/01/17 00:45 Potassium 4.3 MMOL/L (3.6-5.0) 08/01/17 00:45 Chloride 106 mmol/L (98-107) 08/01/17 00:45 Carbon Dioxide 26 mmol/L (22-30) 08/01/17 00:45 Anion Gap 14 (10-20) 08/01/17 00:45 BUN 16 mg/dl (9-20) 08/01/17 00:45 Creatinine 1.1 mg/dl (0.8-1.5) 04 00:45 Est GFR ( Amer) > 60 04 00:45 Est GFR (Non-Af Amer) > 60 04 00:45 Random Glucose 104 mg/dL (75-110) 08/01/17 00:45 Calcium 8.9 mg/dL (8.4-10.2) 08/01/17 00:45 Total Bilirubin 0.4 mg/dl (0.2-1.3) 07/31/17 06:34 AST 35 U/L (17-59) 07/31/17 06:34 ALT 64 U/L (21-72) 07/31/17 06:34 Alkaline Phosphatase 88 U/L (38-126) 07/31/17 06:34 Troponin I < 0.0120 ng/mL (0.00-0.120) 08/01/17 00:45 Total Protein 7.2 G/DL (6.3-8.2) 07/31/17 06:34 Albumin 3.8 g/dL (3.5-5.0) 07/31/17 06:34 Globulin 3.4 gm/dL (2.2-3.9) 07/31/17 06:34 Albumin/Globulin Ratio 1.1 (1.0-2.1) 07/31/17 06:34 Triglycerides 128 mg/DL (0-149) D 07/31/17 06:34 Cholesterol 172 mg/dL (0-199) 07/31/17 06:34 LDL Cholesterol Direct 79 mg/dL (0-129) 07/31/17 06:34 HDL Cholesterol 80 MG/DL (30-70) H 07/31/17 06:34 Lipase 68 U/L (23-300) 08/01/17 07:52 Urine Color Yellow (YELLOW) 07/31/17 08:00 Urine Clarity Clear (Clear) 07/31/17 08:00 Urine pH 6.0 (5.0-8.0) 07/31/17 08:00 Ur Specific [place] 1.012 (1.003-1.030) 07/31/17 08:00 Urine Protein Negative mg/dL (NEGATIVE) 07/31/17 08:00 Urine Glucose (UA) Neg mg/dL (Normal) 07/31/17 08:00 Urine Ketones Negative mg/dL (NEGATIVE) 07/31/17 08:00 Urine Blood Negative (NEGATIVE) 07/31/17 08:00 Urine Nitrate Negative (NEGATIVE) 07/31/17 08:00 Urine Bilirubin Negative (NEGATIVE) 07/31/17 08:00 Urine Urobilinogen 0.2-1.0 mg/dL (0.2-1.0) 07/31/17 08:00 Ur Leukocyte Esterase Neg Alli/uL (Negative) 07/31/17 08:00 Urine RBC (Auto) 1 /hpf (0-3) 07/31/17 08:00 Urine Microscopic WBC < 1 /hpf (0-5) 07/31/17 08:00 Stool Occult Blood Positive (NEGATIVE) H 07/31/17 06:34 Urine Opiates Screen Negative (NEGATIVE) 07/31/17 08:00 Urine Methadone Screen Negative (NEGATIVE) 07/31/17 08:00 Ur Barbiturates Screen Negative (NEGATIVE) 07/31/17 08:00 Ur Phencyclidine Scrn Negative (NEGATIVE) 07/31/17 08:00 Ur Amphetamines Screen Negative (NEGATIVE) 07/31/17 08:00 U Benzodiazepines Scrn Positive (NEGATIVE) 07/31/17 08:00 U Oth Cocaine Metabols Positive (NEGATIVE) H 07/31/17 08:00 U Cannabinoids Screen Negative (NEGATIVE) 07/31/17 08:00 Alcohol, Quantitative < 10 mg/dl (0-10) 07/31/17 06:34 Blood Type B POSITIVE 07/31/17 06:25 Blood Type Confirm B POSITIVE 07/31/17 07:40 Antibody Screen Negative 07/31/17 06:25 BBK History Checked No verified bt 07/31/17 06:25 - Hospital Course Hospital Course: 52 yo male with histolry of Bipolar DO, HTN and HLD placed on observation because of chest pain. Serial Troponins and EKG were negative for ischemic events. Patient was discharged in stable condition. Rectal bleeding probably secondary to hemorrhoids. Advised to follow up with his PCP for further work up. Discharge Exam - Head Exam Head Exam: ATRAUMATIC, NORMOCEPHALIC Discharge Plan - Follow Up Plan Condition: FAIR Disposition: HOME/ ROUTINE Instructions: Chest Pain (DC)
--- NOTE | 2017-08-01 18:06 | CARD ---
APPROVED REPORT EKG Measurement Heart [id number] <Conclusion> Normal sinus rhythm Possible Left atrial enlargement T wave abnormality, consider inferolateral ischemia Abnormal ECG
--- NOTE | 2017-08-01 18:18 | CARD ---
APPROVED REPORT EKG Measurement Heart [id number] <Conclusion> Normal sinus rhythm T wave abnormality, consider inferior ischemia Abnormal ECG
--- NOTE | 2017-08-01 18:24 | CP.PCM.CON ---
History of Present Illness - History of Present Illness History of Present Illness: GI consult requested by Hospialist- This is a 52 year old male with substance abuse and alcohol dependance history who presents to hospital with complaint of substernal discomfort and abdominal pain which started yesterday. GI called for evaluation of abdominal pain and occult positive stool. He describes an epigastric, dull ache 5/10 intensity that is non-radiating and worse following meal consumption, associated with nausea. He denies vomiting, diarrhea, fever/ chills, weight loss, or rectal bleeding. He has been tolerating PO diet, though endorses decreased appetite. He admits to illicit drug use, most recently cocaine 1 week ago. He had a colonoscopy 6 years ago which was normal according to patient. He does not want to quantify his drinking and states he has stopped cocaine 3 weeks ago. Review of Systems - Review of Systems Review of Systems: 12 point ROS unremarkable except that documented in HPI Past Patient History - Infectious Disease Hx of Infectious Diseases: None - Past Medical History & Family History Past Medical History?: Yes - Past Social History Smoking Status: Heavy Smoker > 10 Cigarettes Daily - CARDIAC Hx Hypercholesterolemia: Yes Hx Hypertension: Yes - PULMONARY Hx Respiratory Disorders: No Hx Tuberculosis: No Other/Comment: Pt. very uncooperative information taken from MD'S notes - NEUROLOGICAL Hx Seizures: No - HEENT Hx HEENT Problems: No - RENAL Hx Chronic Kidney Disease: No - ENDOCRINE/METABOLIC Hx Endocrine Disorders: No - HEMATOLOGICAL/ONCOLOGICAL Hx Human Immunodeficiency Virus (HIV): No - INTEGUMENTARY Hx Dermatological Problems: No - MUSCULOSKELETAL/RHEUMATOLOGICAL Hx Musculoskeletal Disorders: No Hx Falls: No - GASTROINTESTINAL Hx Gastrointestinal Disorders: No - GENITOURINARY/GYNECOLOGICAL Hx Sexually Transmitted Disorders: No - PSYCHIATRIC Hx Anxiety: Yes Hx Bipolar Disorder: Yes Hx Depression: Yes Hx Post Traumatic Stress Disorder: Yes Hx Schizophrenia: Yes - SURGICAL HISTORY Hx Surgeries: No - ANESTHESIA Hx Anesthesia: No Hx Anesthesia Reactions: No Hx Malignant Hyperthermia: No Meds Allergies/Adverse Reactions: Allergies Allergy/AdvReac Type Severity Reaction Status Date / Time shrimp Allergy Mild SWELLING Verified 07/31/17 05:57 Physical Exam - Constitutional Appears: Well, Non-toxic, No Acute Distress - Head Exam Head Exam: ATRAUMATIC, NORMAL INSPECTION, NORMOCEPHALIC - Eye Exam Eye Exam: EOMI, Normal appearance, PERRL Pupil Exam: NORMAL ACCOMODATION, PERRL - ENT Exam ENT Exam: Mucous Membranes Moist, Normal Exam - Neck Exam Neck exam: Positive for: Normal Inspection - Respiratory Exam Respiratory Exam: Clear to Auscultation Bilateral, NORMAL BREATHING PATTERN - Cardiovascular Exam Cardiovascular Exam: REGULAR RHYTHM - GI/Abdominal Exam GI & Abdominal Exam: Distended, Normal Bowel Sounds, Soft. absent: Tenderness - Rectal Exam Rectal Exam: Deferred - Neurological Exam Neurological exam: Alert, CN II-XII Intact, Oriented x3 - Psychiatric Exam Psychiatric exam: Agitated - Skin Skin Exam: Dry, Intact Results - Vital Signs Recent Vital Signs: Last Vital Signs Temp 97.7 F 08/01/17 08:00 Pulse 79 08/01/17 09:28 Resp 20 08/01/17 08:00 BP 133/92 H 08/01/17 09:28 Pulse Ox 96 08/01/17 08:00 - Labs Result Diagrams: 08/01/17 05:10 08/01/17 00:45 Labs: Laboratory Results - last 24 hr 07/31/17 08/01/17 08/01/17 18:16 00:45 05:10 WBC 4.9 RBC 4.42 Hgb 12.7 Hct 38.6 MCV 87.3 MCH 28.8 MCHC 32.9 L RDW 16.2 H Plt Count 228 Sodium 142 Potassium 4.3 Chloride 106 Carbon Dioxide 26 Anion Gap 14 BUN 16 Creatinine 1.1 Est GFR ( Amer) > 60 Est GFR (Non-Af Amer) > 60 Random Glucose 104 Calcium 8.9 Troponin I < 0.0120 < 0.0120 Lipase 08/01/17 07:52 WBC RBC Hgb Hct MCV MCH MCHC RDW Plt Count Sodium Potassium Chloride Carbon Dioxide Anion Gap BUN Creatinine Est GFR ( Amer) Est GFR (Non-Af Amer) Random Glucose Calcium Troponin I Lipase 68 Assessment & Plan - Assessment and Plan (Free Text) Assessment: 52 yr old M with alcohol and substance issues/ dependance admitted with abdominal pain likely due to constipation and stool ocult positive. No s/s of overt GIB. Plan: - Colonoscopy as outpatient No indication for urgent GI intervention Diet as tolerated Stool softeners and laxatives Can be discharged with outpatient follow up Alcohol and cocaine cessation
[2017-08-01 22:26] VITALS: O2SAT 94
== END 2017-08-01 11:00 | disposition left against medical advice (07) ==
LOC: H.ER 05:39 → H.ERHOLD 10:10 → H.TEL 12:28
PROVIDERS: ADMIT Internal Medicine; ATTEND Internal Medicine
DX: R07.89 Other chest pain (principal); I10 Essential (primary) hypertension; E78.5 Hyperlipidemia, unspecified; F31.9 Bipolar disorder, unspecified; F20.9 Schizophrenia, unspecified; F43.10 Post-traumatic stress disorder, unspecified; F17.210 Nicotine dependence, cigarettes, uncomplicated; K62.5 Hemorrhage of anus and rectum; E78.00 Pure hypercholesterolemia, unspecified; Z91.013 Allergy to seafood; F14.10 Cocaine abuse, uncomplicated
CPT/HCPCS: 36415; 71045; 80048; 80053; 80061; 80320; 80324; 80345; 80346; 80349; 80353; 80358; 80361; 81003; 83690; 83992; 84484; 85025; 85027; 85610; 85730; 86850; 86900; 93005; 96374; 99285; C9113; G0328; G0378

== ENCOUNTER 2017-08-04 19:25 | Emergency (ER) | payer MEDICAID, OTHER ==
[2017-08-04 19:25] VITALS: BMI 29.9
[2017-08-04 20:05] VITALS: TEMP 98.2; O2SAT 99
[2017-08-04 22:03] LABS: BASO # 0.1 K/uL (0.0-0.2); EOS # 0.2 K/uL (0.0-0.7); EOS % 2.4 % (0.0-4.0); LYMPH # 1.9 K/uL (1.0-4.3); MEAN CELL VOLUME 87.1 fl (80.0-94.0); MEAN CORPUSCULAR HEMOGLOBIN 28.9 pg (27.0-31.0); MEAN CORPUSCULAR HGB CONC 33.2 g/dL (33.0-37.0); MEAN PLATELET VOLUME 8.3 fl (7.2-11.7); MONO # 0.7 K/uL (0.0-0.8); MONO % 7.8 % (0.0-10.0); NEUT # 5.8 K/uL (1.8-7.0); NEUT % 66.8 % (50.0-75.0); NRBC % 0.2 % (0.0-0.0); RBC 4.5 Mil/uL (4.40-5.90); RED CELL DISTRIBUTION WIDTH 16.7 % (11.5-14.5); WHITE BLOOD COUNT 8.7 K/uL (4.8-10.8)
[2017-08-04 22:17] LABS: ALB/GLOB RATIO 1.2 (1.0-2.1); ALBUMIN 4.1 g/dL (3.5-5.0); ALT/SGPT 70 U/L (21-72); AST/SGOT 42 U/L (17-59); BLOOD UREA NITROGEN 19 mg/dl (9-20); CALCIUM 9.5 mg/dL (8.4-10.2); GFR AFRICAN-AMERICAN > 60; GFR NON-AFRICAN AMERICAN > 60; LIPASE 137 U/L (23-300)
[2017-08-04 22:21] LABS: BARBITURATES, UR NEGATIVE (NEGATIVE); BENZODIAZEPINES, UR POSITIVE (NEGATIVE); OPIATES, UR NEGATIVE (NEGATIVE); PHENCYCLIDINE, UR POSITIVE (NEGATIVE)
--- NOTE | 2017-08-04 22:35 | ED PDOC ---
HPI: Abdomen Time Seen by Provider: 08/04/17 19:35 Chief Complaint (Nursing): Abdominal Pain Chief Complaint (Provider): Abdominal Pain History Per: Patient History/Exam Limitations: no limitations Additional Complaint(s): 52 y/o male with past medical history of bipolar disorder and alcohol abuse presents to the ED with bloody stool and abdominal pain that started since he started taking his medication (seroqul). Reports headache but denies fever, vomiting or any further medical complaints. Past Medical History Reviewed: Historical Data, Nursing Documentation, Vital Signs Vital Signs: Last Vital Signs Temp 98.2 F 08/04/17 23:58 Pulse 91 H 08/04/17 23:58 Resp 15 08/04/17 23:58 BP 131/80 08/04/17 23:58 Pulse Ox 99 08/05/17 00:13 - Medical History PMH: Anxiety, Bipolar Disorder, Depression, HTN, Hypercholesterolemia, Post Traumatic Stress Disorder, Schizophrenia Denies: Diabetes, Hepatitis, HIV, Chronic Kidney Disease, Seizures, Sexually Transmitted Disease - Surgical History Surgical History: No Surg Hx - Family History Family History: States: Unknown Family Hx - Social History Current smoker - smoking cessation education provided: Yes (Heavy Smoker > 10 Cigarettes Daily) Alcohol: None (Denies) Drugs: Denies - Immunization History Hx Tetanus Toxoid Vaccination: No Hx Influenza Vaccination: Yes Hx Pneumococcal Vaccination: No - Home Medications Home Medications: Ambulatory Orders Medication Instructions Recorded Mirtazapine [Remeron] 30 mg PO HS #30 tab 07/10/17 Prazosin HCL [Minipress] 2 mg PO HS #30 cap 07/10/17 QUEtiapine [SEROquel] 50 mg PO HS #30 tab 07/10/17 Sertraline [Zoloft] 100 mg PO DAILY #30 tab 07/10/17 amLODIPine [Norvasc] 5 mg PO DAILY #30 tab 07/10/17 Pantoprazole [Protonix] 40 mg PO DAILY #10 tab 08/04/17 - Allergies Allergies/Adverse Reactions: Allergies Allergy/AdvReac Type Severity Reaction Status Date / Time shrimp Allergy Mild SWELLING Verified 07/31/17 05:57 shellfish derived Allergy SWELLING Verified 08/06/17 22:14 Review of Systems ROS Statement: Except As Marked, All Systems Reviewed And Found Negative (as per HPI, otherwise negative) Constitutional: Negative for: Fever Gastrointestinal: Positive for: Abdominal Pain, Hematemesis. Negative for: Vomiting Physical Exam - Reviewed Nursing Documentation Reviewed: Yes Vital Signs Reviewed: Yes - Physical Exam Appears: Positive for: Non-toxic, No Acute Distress Head Exam: Positive for: ATRAUMATIC, NORMAL INSPECTION, NORMOCEPHALIC Skin: Positive for: Normal Color, Warm, Dry Eye Exam: Positive for: Normal appearance ENT: Positive for: Normal ENT Inspection Neck: Positive for: Normal, Painless ROM, Supple Cardiovascular/Chest: Positive for: Regular Rate, Rhythm. Negative for: Murmur Respiratory: Positive for: Normal Breath Sounds. Negative for: Accessory Muscle Use, Respiratory Distress Gastrointestinal/Abdominal: Positive for: Normal Exam, Soft. Negative for: Tenderness Back: Positive for: Normal Inspection Extremity: Positive for: Normal ROM. Negative for: Deformity Neurologic/Psych: Positive for: Alert, Oriented (x3) - Laboratory Results Result Diagrams: 08/04/17 21:50 08/04/17 21:50 - ECG O2 Sat by Pulse Oximetry: 99 (RA) Pulse Ox Interpretation: Normal Medical Decision Making Medical Decision Making: Time: 21:50 Initial Impression: bloody stool and abdominal pain rule out rectal bleed Plan: Type and screen CMP Drug Screen Lipase CBC w/ differential Guiac stool Reevaluation Patient has been sleeping comfortably throughout entire stay in the ED. He refuses guaiac test and stool exam. Denies drugs even though his urine screen shows PCP, marijuana and cocaine. He is tolerating PO and has no abdominal tenderness upon reexamination. hgb stable. no vomiting.. Scribe Attestation: Documented by Wanda Walsh acting as a scribe for Taryn Michele MD. MD Nolan Attestation: All medical record entries made by the Scribe were at my direction and personally dictated by me. I have reviewed the chart and agree that the record accurately reflects my personal performance of the history, physical exam, medical decision making, and the department course for this patient. I have also personally directed, reviewed, and agree with the discharge instructions and disposition. Disposition - Clinical Impression Clinical Impression: Diarrhea, Substance abuse - Patient ED Disposition Is Patient to be Admitted: No Counseled Patient/Family Regarding: Studies Performed, Diagnosis, Need For Followup - Disposition Referrals: Satnam Jimenez MD [Staff Provider] - Disposition: Routine/Home Disposition Time: 21:30 Condition: IMPROVED Additional Instructions: follow up with your primary doctor in 1-2 days and with GI specialist for outpatient endoscopy return to the ED with any worsening or concerning symptoms Prescriptions: Pantoprazole [Protonix] 40 mg PO DAILY #10 tab Instructions: Bloody Stools, Adult (DC) Forms: Down (Hungarian)
[2017-08-04] MEDS ORDERED: Pantoprazole 40 mg EC Tab PO STA (23:21)
[2017-08-04] MEDS ORDERED: Pantoprazole 40 mg EC Tab PO ONE (23:52)
[2017-08-04 23:59] VITALS: BP 131/80; PULSE 91; RESP 15
== END 2017-08-05 00:01 | disposition home or self-care (01) ==
LOC: H.ER 19:25
DX: R19.7 Diarrhea, unspecified (principal); F19.10 Other psychoactive substance abuse, uncomplicated; E78.00 Pure hypercholesterolemia, unspecified; F20.9 Schizophrenia, unspecified; F31.9 Bipolar disorder, unspecified; F43.10 Post-traumatic stress disorder, unspecified; I10 Essential (primary) hypertension

== ENCOUNTER 2017-08-06 22:05 | Inpatient (IN) | payer OTHER ==
[2017-08-06 22:05] VITALS: BMI 29.9
[2017-08-06 22:18] VITALS: O2SAT 100
[2017-08-06 23:35] LABS: BASO # 0.1 K/uL (0.0-0.2); BASO % 1.2 % (0.0-2.0); EOS # 0.2 K/uL (0.0-0.7); EOS % 2.8 % (0.0-4.0); HEMOGLOBIN 12.2 g/dL (12.0-18.0); LYMPH # 1.7 K/uL (1.0-4.3); LYMPH % 24.3 % (20.0-40.0); MEAN CELL VOLUME 85.6 fl (80.0-94.0); MEAN CORPUSCULAR HEMOGLOBIN 29.1 pg (27.0-31.0); MEAN PLATELET VOLUME 7.4 fl (7.2-11.7); MONO # 0.6 K/uL (0.0-0.8); MONO % 8.8 % (0.0-10.0); NEUT # 4.3 K/uL (1.8-7.0); NEUT % 62.9 % (50.0-75.0); NRBC % 0.3 % (0.0-0.0); RBC 4.19 Mil/uL (4.40-5.90); RED CELL DISTRIBUTION WIDTH 16.2 % (11.5-14.5); WHITE BLOOD COUNT 6.9 K/uL (4.8-10.8)
--- NOTE | 2017-08-06 23:42 | ED PDOC ---
HPI: Psych/Substance Abuse Time Seen by Provider: 08/06/17 22:56 Chief Complaint (Nursing): Psychiatric Evaluation Chief Complaint (Provider): Pyschiatric Evaluation History Per: Patient History/Exam Limitations: no limitations Onset/Duration Of Symptoms: Days (1 day ) Current Symptoms Are (Timing): Still Present Additional Complaint(s): 52 yo male with a history of bipolar disorder, hypertension, and high cholesterol, presents to the ED complaining of suicidal ideation, onset of 1 day ago. Patient reports that he has taken 4 pills of 300mg Seroquel this morning and two more in the waiting room, as well as cocaine, K2, and marijuana. All of which was taken in addition to his regular psychiatric medications, which he says is not working. He denies chest pain, shortness of breath, or any homicidal ideation. Past Medical History Reviewed: Historical Data, Nursing Documentation, Vital Signs Vital Signs: Last Vital Signs Temp 98.0 F 08/06/17 22:14 Pulse 83 08/06/17 22:14 Resp 16 08/06/17 22:14 BP 128/84 08/06/17 22:14 Pulse Ox 100 08/06/17 22:14 - Medical History PMH: Anxiety, Bipolar Disorder, COPD, Depression, HTN, Hypercholesterolemia, Post Traumatic Stress Disorder, Schizophrenia Denies: Diabetes, Hepatitis, HIV, Chronic Kidney Disease, Seizures, Sexually Transmitted Disease - Surgical History Surgical History: No Surg Hx - Family History Family History: States: Unknown Family Hx - Living Arrangements Living Arrangements: Alone - Social History Current smoker - smoking cessation education provided: Yes (some days) Alcohol: None Drugs: Cannabis, Cocaine, Prescription medications - Immunization History Hx Tetanus Toxoid Vaccination: No Hx Influenza Vaccination: Yes Hx Pneumococcal Vaccination: No - Home Medications Home Medications: Ambulatory Orders Medication Instructions Recorded Mirtazapine [Remeron] 30 mg PO HS #30 tab 07/10/17 Prazosin HCL [Minipress] 2 mg PO HS #30 cap 07/10/17 QUEtiapine [SEROquel] 50 mg PO HS #30 tab 07/10/17 Sertraline [Zoloft] 100 mg PO DAILY #30 tab 07/10/17 amLODIPine [Norvasc] 5 mg PO DAILY #30 tab 07/10/17 Pantoprazole [Protonix] 40 mg PO DAILY #10 tab 08/04/17 - Allergies Allergies/Adverse Reactions: Allergies Allergy/AdvReac Type Severity Reaction Status Date / Time shrimp Allergy Mild SWELLING Verified 07/31/17 05:57 shellfish derived Allergy SWELLING Verified 08/06/17 22:14 Review of Systems ROS Statement: Except As Marked, All Systems Reviewed And Found Negative Constitutional: Negative for: Fever Cardiovascular: Negative for: Chest Pain Respiratory: Negative for: Shortness of Breath Psych: Positive for: Suicidal ideation. Negative for: Other (homicidal ideation ) Physical Exam - Reviewed Nursing Documentation Reviewed: Yes Vital Signs Reviewed: Yes - Physical Exam Appears: Positive for: Well, Non-toxic, No Acute Distress Head Exam: Positive for: ATRAUMATIC, NORMAL INSPECTION, NORMOCEPHALIC Skin: Positive for: Normal Color, Warm, DRY Eye Exam: Positive for: EOMI, Normal appearance, PERRL ENT: Positive for: Normal ENT Inspection Neck: Positive for: Normal, Painless ROM Cardiovascular/Chest: Positive for: Regular Rate, Rhythm. Negative for: Murmur Respiratory: Positive for: Normal Breath Sounds. Negative for: Respiratory Distress Gastrointestinal/Abdominal: Positive for: Normal Exam, Soft. Negative for: Tenderness Back: Positive for: Normal Inspection Extremity: Positive for: Normal ROM. Negative for: Pedal Edema, Deformity Neurologic/Psych: Positive for: Alert, Oriented, Mood/Affect (flat). Negative for: Motor/Sensory Deficits - Laboratory Results Result Diagrams: 08/06/17 23:32 08/06/17 23:32 - ECG O2 Sat by Pulse Oximetry: 100 (RA) Pulse Ox Interpretation: Normal Medical Decision Making Medical Decision Making: Time: --23:22 Impression: --hx of bipolar disorder with suicidal ideation Plan: --EKG --Alcohol Serum --Bsic Metabolic panel --Drug Screen, urine --1:1 Obs for Suicide precaution --Urinalysis Reassess --11:37 Vital signs are normal and patient is well appearing on exam other then flat affect. Will get medical clearance with lab work and crisis evaluation --100 Patient medically cleared. Patient to be admitted to psych for depression by Dr. Alarcon. Scribe Attestation: Documented by Vinh Perez acting as a scribe for Otis Ascencio MD. Provider Attestation: All medical record entries made by the Scribe were at my direction and personally dictated by me. I have reviewed the chart and agree that the record accurately reflects my personal performance of the history, physical exam, medical decision making, and the department course for this patient. I have also personally directed, reviewed, and agree with the discharge instructions and disposition. Disposition - Clinical Impression Clinical Impression: Depression - Disposition Disposition Time: 01:00 Condition: FAIR
[2017-08-06 23:46] LABS: ACETAMINOPHEN < 10.0 ug/ml (10.0-30.0); SALICYLATE < 1.0 mg/dl
[2017-08-06 23:52] LABS: BLOOD UREA NITROGEN 24 mg/dl (9-20); CALCIUM 8.7 mg/dL (8.4-10.2); GFR AFRICAN-AMERICAN > 60; GFR NON-AFRICAN AMERICAN > 60
[2017-08-07 02:31] LABS: SQUAMOUS EPITHIAL < 1 /hpf (0-5); URINE BILIRUBIN NEGATIVE (NEGATIVE); URINE BLOOD NEGATIVE (NEGATIVE); URINE CLARITY CLEAR (Clear); URINE COLOR YELLOW (YELLOW); URINE GLUCOSE (UA) NEG (Normal); URINE LEUKOCYTE ESTERASE NEG Leu/uL (Negative); URINE PROTEIN NEGATIVE (NEGATIVE); URINE UROBILINOGEN 0.2-1.0 mg/dL (0.2-1.0)
[2017-08-07 02:43] LABS: PHENCYCLIDINE, UR NEGATIVE (NEGATIVE)
[2017-08-07 02:50] LABS: BARBITURATES, UR NEGATIVE (NEGATIVE); BENZODIAZEPINES, UR POSITIVE (NEGATIVE); OPIATES, UR NEGATIVE (NEGATIVE)
[2017-08-07] MEDS ORDERED: Alum-Mag Hydrox-Simethicone Susp (30 mL) PO PRN (03:55)
[2017-08-07] MEDS ORDERED: Magnesium Hydroxide Susp 30 ml UD PO PRN (03:55)
[2017-08-07] MEDS ORDERED: DiphenhydrAMINE 50 mg/ml Inj IM PRN (03:55)
--- NOTE | 2017-08-07 04:21 | PCM.BM ---
<Jovany Taylor P - Last Filed: 08/07/17 04:13> Treatment Plan Problems - Problems identified on initial assessmt Feelings of Worthlessness Date Initiated: 08/07/17 Time Initiated: 04:13 Assessment reference: NA Status: Active Hopelessness/Helplessness Date Initiated: 08/07/17 Time Initiated: 04:13 Assessment reference: NA Status: Active Treatment assets and liabiliti Patient Assests: adapts well, cooperative, motivated, ADL independent, physically healthy, negotiates basic needs, cognitively intact, good interpersonal skills Patient Liabilities: poor support system, substance abuse - Milieu Protocol Maintain good personal hygiene: daily Encourage regular showers, every shift Remind patient to perform daily oral care, every shift Assist patient to perform ADL's Conduct patient checks and document Observation sheet: Q15 minutes Maintain personal safety: every shift Educate patient to report safety concerns to staff, every shift Monitor environment for contraband/sharps Medication safety: Monitor for expected outcome, potential side effects: every shift, Assess barriers to learning: every shift, Assess readiness for medication education: every shift <Tree Baron J - Last Filed: 08/10/17 13:29> Family Contact Family involvement: Famliy/SO not involved Family contact: Patient declines to allow family contact at present Family contact name: Pt denied. - Goals for Treatment Patient goals for treatment: Pt would like to minimize his depression and improve his sleep. Discharge/Continuing Care - Education Needs Education Needs: Patient Medication, Patient Diagnosis/Disease Process, Patient Coping Skills, Patient Community resources, Patient Aftercare Safety Plan - Discharge Discharge Criteria: Tolerates medication w/o severe side effects, Free of Suicidal thoughts, Free of agitation, Normal sleep pattern, Reduction of target symptoms Discharge to:: Nursing Home - Additional Comments 08/10/17 13:28 Pt offered no complaints, but requested that medication continued to be altered so he can sleep. Pt continues to be superficially cooperative and irritable toward staff. - Treatment Team Participation Discussed with Family/SO: No Was Patient/Family/SO present at Treatment Team Meeting: Yes
[2017-08-07 07:34] LABS: T4 7.2 ug/dl (5.5-11.0)
--- NOTE | 2017-08-07 10:34 | CARD ---
APPROVED REPORT EKG Measurement Heart [id number] <Conclusion> Normal sinus rhythm Possible Left atrial enlargement ST & T wave abnormality, consider inferolateral ischemia Abnormal ECG
--- NOTE | 2017-08-07 13:17 | PCM.PSYCH ---
Initial Psychiatric Evaluation - Initial Psychiatric Evaluation Type of Admission: Voluntary Legal Status: Capacity Chief Complaint (in patient's own words): I am sad because my mother this time of the year Patient's Reaction to Hospitalization: pt requested help History of Present Illness and Precipitating Events: pt with previous diagnosis of polysubstance use, bipolar disorder, recently discharged from [facility], reportedly compliant with medications, pt relapsed on cocaine and cannabis, became increasingly depressed, started having suicidal ideation, attempted to overdose on seroquel, took 5pills, came to ER seeking help reported passive suicidal ideation without plan on the unit, low energy , anhedonia, denied homicidal ideations, denied command hallucinations Current Medications: Active Medications Generic Name Dose Route Start Last Admin Trade Name Freq PRN Reason Stop Dose Admin Acetaminophen 650 mg 08/07/17 03:55 Tylenol 325mg Tab PO Q4 PRN pain level 4-7 Al Hydrox/Mg Hydrox/Simethicone 30 ml 08/07/17 03:55 Maalox Plus 30 Ml PO Q4 PRN Dyspepsia Diphenhydramine HCl 50 mg 08/07/17 03:55 Benadryl IM Q6 PRN Extrapyramidal S/S Unable PO Diphenhydramine HCl 50 mg 08/07/17 03:55 Benadryl PO Q6 PRN Extrapyramidal Symptoms Diphenhydramine HCl 50 mg 08/07/17 03:58 Benadryl PO HS PRN Sleep Haloperidol 5 mg 08/07/17 03:55 Haldol PO Q4 PRN Agitation Haloperidol Lactate 5 mg 08/07/17 03:55 Haldol IM Q4 PRN Agitation, Unable to Take PO Lorazepam 2 mg 08/07/17 03:55 Ativan IM Q4 PRN Anxiety/Agitation,Unable PO Lorazepam 2 mg 08/07/17 03:55 Ativan PO Q4 PRN Anxiety/Agitation Magnesium Hydroxide 30 ml 08/07/17 03:55 Milk Of Magnesia PO HS PRN Constipation Mirtazapine 15 mg 08/07/17 22:00 Remeron PO HS ALIS Prazosin HCl 2 mg 08/07/17 12:46 Minipress PO 08/07/17 12:47 HS ONE Quetiapine Fumarate 100 mg 08/07/17 22:00 Seroquel PO HS ALIS Past Psychiatric History - Past Psychiatric History Explanation of prior treatment: multiple inpatient hospitalizations, partial compliance History of ETOH/Drug Use: hx of alcohol, cocaine and cannabis use Pertinent Medical Hx (Current Medical&Sleep Prob, Allergies): Allergies Allergy/AdvReac Type Severity Reaction Status Date / Time shrimp Allergy Mild SWELLING Verified 07/31/17 05:57 shellfish derived Allergy SWELLING Verified 08/06/17 22:14 Mirtazapine [Remeron] 30 mg PO HS #30 tab 07/10/17 Prazosin HCL [Minipress] 2 mg PO HS #30 cap 07/10/17 QUEtiapine [SEROquel] 50 mg PO HS #30 tab 07/10/17 Sertraline [Zoloft] 100 mg PO DAILY #30 tab 07/10/17 amLODIPine [Norvasc] 5 mg PO DAILY #30 tab 07/10/17 Pantoprazole [Protonix] 40 mg PO DAILY #10 tab 08/04/17 Mental Status Examination - Personal Presentation Personal Presentation: Looks stated age - Affect Affect: Constricted, Depressed - Motor Activity Motor Activity: Psychomotor Retardation - Reliability in Providing Information Reliability in Providing Information: Poor, due to alteration in thoughts, Poor , due to altered mood - Speech Speech: Irrelevant - Mood Mood: Depressed - Formal Thought Process Formal Thought Process: Circumstantial - Hallucinations/Delusions Additional comments: pt denied any current perceptual disturbances, non elicited - Obsessions/Compulsions Obsessions: No Compulsions: No - Cognitive Functions Orientation: Person, Place, Situation Sensorium: Alert Abstract Thinking: [place] - Risk Risk: Diminished functioning - Strength & Assets Inventory Strength & Assets Inventory: Life experience - Limitations Additional comments: unemployed DSM 5 DX - DSM 5 DSM 5 Diagnosis: cocaine induced mood disorder with depressive features cocaine use disorder cannabis use disorder hx of bipolar disorder - Recommended/Plan of Treatment Treatment Recommendations and Plan of Treatment: remeron 15mg qhs [id number] qhs with plan to uptitrate minipress 2mg qhs motivational and supportive therapy
--- NOTE | 2017-08-07 19:56 | CP.PCM.CON ---
History of Present Illness - History of Present Illness History of Present Illness: This is a 52 year old male with a pmh of bipolar disorder, hypertension, hypercholesterolemia, who was admitted to inpatient psych due to suicidal ideation. Patient has polysubstance abuse and took Seroquel, cocaine, K2, and marijuana on the day of admission. He currently has no complaints. Patient denies chest pain, shortness of breath, fevers, chills, nausea, vomiting, diarrhea, headache. All of the patient's questions were answered at the bedside. Review of Systems - Review of Systems Review of Systems: A 12 point ros was conducted and found to be negative other than what was mentioned in the HPI. Past Patient History - Infectious Disease Hx of Infectious Diseases: None - Past Medical History & Family History Past Medical History?: Yes - Past Social History Drugs: Cannabis, Cocaine, Prescription medications - CARDIAC Hx Hypercholesterolemia: Yes Hx Hypertension: Yes - PULMONARY Hx Chronic Obstructive Pulmonary Disease (COPD): Yes - NEUROLOGICAL Hx Seizures: No - HEENT Hx HEENT Problems: No - RENAL Hx Chronic Kidney Disease: No - ENDOCRINE/METABOLIC Hx Endocrine Disorders: No - HEMATOLOGICAL/ONCOLOGICAL Hx Human Immunodeficiency Virus (HIV): No - INTEGUMENTARY Hx Dermatological Problems: No - MUSCULOSKELETAL/RHEUMATOLOGICAL Hx Musculoskeletal Disorders: No Hx Falls: No - GASTROINTESTINAL Hx Gastrointestinal Disorders: No - GENITOURINARY/GYNECOLOGICAL Hx Sexually Transmitted Disorders: No - PSYCHIATRIC Hx Anxiety: Yes Hx Bipolar Disorder: Yes Hx Depression: Yes Hx Post Traumatic Stress Disorder: Yes Hx Schizophrenia: Yes - SURGICAL HISTORY Hx Surgeries: No - ANESTHESIA Hx Anesthesia: No Hx Anesthesia Reactions: No Hx Malignant Hyperthermia: No Meds Allergies/Adverse Reactions: Allergies Allergy/AdvReac Type Severity Reaction Status Date / Time shrimp Allergy Mild SWELLING Verified 07/31/17 05:57 shellfish derived Allergy SWELLING Verified 08/06/17 22:14 - Medications Medications: Current Medications Acetaminophen (Tylenol 325mg Tab) 650 mg PO Q4 PRN PRN Reason: pain level 4-7 Al Hydrox/Mg Hydrox/Simethicone (Maalox Plus 30 Ml) 30 ml PO Q4 PRN PRN Reason: Dyspepsia Amlodipine Besylate (Norvasc) 5 mg PO DAILY ALIS Diphenhydramine HCl (Benadryl) 50 mg IM Q6 PRN PRN Reason: Extrapyramidal S/S Unable PO Diphenhydramine HCl (Benadryl) 50 mg PO Q6 PRN PRN Reason: Extrapyramidal Symptoms Diphenhydramine HCl (Benadryl) 50 mg PO HS PRN PRN Reason: Sleep Haloperidol (Haldol) 5 mg PO Q4 PRN PRN Reason: Agitation Haloperidol Lactate (Haldol) 5 mg IM Q4 PRN PRN Reason: Agitation, Unable to Take PO Home Med (Prazosin Hcl [Minipress]) 2 mg PO HS ALIS Lorazepam (Ativan) 2 mg IM Q4 PRN PRN Reason: Anxiety/Agitation,Unable PO Lorazepam (Ativan) 2 mg PO Q4 PRN PRN Reason: Anxiety/Agitation Magnesium Hydroxide (Milk Of Magnesia) 30 ml PO HS PRN PRN Reason: Constipation Mirtazapine (Remeron) 15 mg PO HS ALIS Pantoprazole Sodium (Protonix Ec Tab) 40 mg PO DAILY ALIS Quetiapine Fumarate (Seroquel) 100 mg PO HS ALIS Physical Exam - Additional Findings Additional findings: Physical exam: Constitutional- cooperative, awake, alert Head- NCAT, PERRL Eye- PERRL, EOMI ENT- normal exam, MMM. Neck- normal inspection, supple, no JVD Respiratory- CTAB, no wheezes rales rhonchi Cardiovascular- RRR, +S1, +S2 no MRG GI/Abdominal- normal bowel sounds, soft, no mass, no hsm Skin- warm, dry Extremities Exam- normal capillary refill, normal inspection Neurological Exam- alert, awake, oriented Psych- normal mood, flat affect Results - Vital Signs Recent Vital Signs: Last Vital Signs Temp 97.5 F L 08/07/17 17:00 Pulse 85 08/07/17 17:00 Resp 18 08/07/17 17:00 BP 147/98 H 08/07/17 17:00 Pulse Ox 100 08/07/17 05:32 - Labs Result Diagrams: 08/06/17 23:32 08/06/17 23:32 Labs: Laboratory Results - last 24 hr 08/06/17 08/06/17 08/06/17 23:32 23:32 23:32 WBC 6.9 RBC 4.19 L Hgb 12.2 Hct 35.9 MCV 85.6 MCH 29.1 MCHC 34.0 RDW 16.2 H Plt Count 216 MPV 7.4 Neut % (Auto) 62.9 Lymph % (Auto) 24.3 Brown % (Auto) 8.8 Eos % (Auto) 2.8 Baso % (Auto) 1.2 Neut # (Auto) 4.3 Lymph # (Auto) 1.7 Brown # (Auto) 0.6 Eos # (Auto) 0.2 Baso # (Auto) 0.1 Sodium 142 Potassium 3.9 Chloride 109 H Carbon Dioxide 18 L Anion Gap 19 BUN 24 H Creatinine 1.1 Est GFR ( Amer) > 60 Est GFR (Non-Af Amer) > 60 Random Glucose 105 Hemoglobin A1c Calcium 8.7 Triglycerides Cholesterol LDL Cholesterol Direct HDL Cholesterol Thyroxine (T4) TSH 3rd Generation Urine Color Urine Clarity Urine pH Ur Specific [place] Urine Protein Urine Glucose (UA) Urine Ketones Urine Blood Urine Nitrate Urine Bilirubin Urine Urobilinogen Ur Leukocyte Esterase Urine RBC (Auto) Urine Microscopic WBC Ur Squamous Epith Cells Salicylates < 1.0 Urine Opiates Screen Urine Methadone Screen Acetaminophen < 10.0 L Ur Barbiturates Screen Ur Phencyclidine Scrn Ur Amphetamines Screen U Benzodiazepines Scrn U Oth Cocaine Metabols U Cannabinoids Screen Alcohol, Quantitative < 10 RPR 08/07/17 08/07/17 08/07/17 02:24 02:24 06:59 WBC RBC Hgb Hct MCV MCH MCHC RDW Plt Count MPV Neut % (Auto) Lymph % (Auto) Brown % (Auto) Eos % (Auto) Baso % (Auto) Neut # (Auto) Lymph # (Auto) Brown # (Auto) Eos # (Auto) Baso # (Auto) Sodium Potassium Chloride Carbon Dioxide Anion Gap BUN Creatinine Est GFR ( Amer) Est GFR (Non-Af Amer) Random Glucose Hemoglobin A1c Calcium Triglycerides 112 Cholesterol 199 LDL Cholesterol Direct 111 HDL Cholesterol 63 Thyroxine (T4) 7.20 TSH 3rd Generation 1.26 Urine Color Yellow Urine Clarity Clear Urine pH 6.0 Ur Specific [place] 1.013 Urine Protein Negative Urine Glucose (UA) Neg Urine Ketones Negative Urine Blood Negative Urine Nitrate Negative Urine Bilirubin Negative Urine Urobilinogen 0.2-1.0 Ur Leukocyte Esterase Neg Urine RBC (Auto) 1 Urine Microscopic WBC < 1 Ur Squamous Epith Cells < 1 Salicylates Urine Opiates Screen Negative Urine Methadone Screen Negative Acetaminophen Ur Barbiturates Screen Negative Ur Phencyclidine Scrn Negative Ur Amphetamines Screen Negative U Benzodiazepines Scrn Positive U Oth Cocaine Metabols Positive H U Cannabinoids Screen Positive H Alcohol, Quantitative RPR 08/07/17 08/07/17 06:59 06:59 WBC RBC Hgb Hct MCV MCH MCHC RDW Plt Count MPV Neut % (Auto) Lymph % (Auto) Brown % (Auto) Eos % (Auto) Baso % (Auto) Neut # (Auto) Lymph # (Auto) Brown # (Auto) Eos # (Auto) Baso # (Auto) Sodium Potassium Chloride Carbon Dioxide Anion Gap BUN Creatinine Est GFR ( Amer) Est GFR (Non-Af Amer) Random Glucose Hemoglobin A1c 5.9 Calcium Triglycerides Cholesterol LDL Cholesterol Direct HDL Cholesterol Thyroxine (T4) TSH 3rd Generation Urine Color Urine Clarity Urine pH Ur Specific [place] Urine Protein Urine Glucose (UA) Urine Ketones Urine Blood Urine Nitrate Urine Bilirubin Urine Urobilinogen Ur Leukocyte Esterase Urine RBC (Auto) Urine Microscopic WBC Ur Squamous Epith Cells Salicylates Urine Opiates Screen Urine Methadone Screen Acetaminophen Ur Barbiturates Screen Ur Phencyclidine Scrn Ur Amphetamines Screen U Benzodiazepines Scrn U Oth Cocaine Metabols U Cannabinoids Screen Alcohol, Quantitative RPR Nonreactive Assessment & Plan - Assessment and Plan (Free Text) Plan: ASSESSMENT/PLAN 1) Essential hypertension - Continue Norvasc 2) Hypercholesterolemia hx - Not on statin - Lipid panel unremarkable, no need to start cholesterol medication 3) Bipolar disorder - Management as per psychiatry
[2017-08-08] MEDS: Pantoprazole 40 mg EC Tab PO SCH (11:10)
--- NOTE | 2017-08-08 15:57 | PCM.PYCHPN ---
Psychiatric Progress Note - Psychiatric Progress Note Patient seen today, length of contact: pt evaluated discussed with team chart reviewed Patient Chief Complaint: I need help with my substance use Problems Identified/Issues Discussed: pt evaluated with treatment team, presenting with depresse mood anxious and irritable affect, pt reported alcohol use , binging at times, denied seizures or tremors but experiences blackouts, discussed with pt referral to inpatient rehab on discharge discussed starting wellbutrin for depression and also to help with cravings pt denied any current suicidal or homicidal ideations denied perceptual disturbances no reporte side effects of medications Medical Problems: multiple inpatient hospitalizations, partial compliance DSM 5 Symptoms Update: cocaine induced mood disorder alcohol use disorder hx of bipolar disorder Medication Change: Yes (start wellbutrin) Medical Record Reviewed: Yes Mental Status Examination - Cognitive Function Orientation: Person, Place, Situation Attention: WNL Concentration: WNL Association: WNL Fund of Knowledge: Poor Decription of patient's judgement and insights: poor insight and judgement - Mood Mood: Depressed - Affect Affect: Constricted, Depressed - Speech Speech: Appropriate - Formal Thought Process Formal Thought Process: Circumstantial Psychotic Thoughts and Behaviors: pt denied psychotic symptoms, non elicited - Suicidal Ideation Suicidal Ideation: No - Homicidal Ideation Homicidal Ideation: No Goal/Treatment Plan - Goal/Treatment Plan Need for Continued Stay: Severe depression anxiety, Discharge may exacerbated symptoms Progress Toward Problem(s) and Goals/Treatment Plan: remeron 15mg qhs seroquel 200mg qhs with plan to uptitrate minipress 2mg qhs, wellbutrin 75mg daily motivational and supportive therapy
[2017-08-09] MEDS: Pantoprazole 40 mg EC Tab PO SCH (09:06)
--- NOTE | 2017-08-09 12:28 | PCM.PYCHPN ---
Psychiatric Progress Note - Psychiatric Progress Note Patient seen today, length of contact: pt evaluated discussed with team chart reviewed Patient Chief Complaint: I am still depressed Problems Identified/Issues Discussed: pt evaluated , continues to report feeling down reported early insomnia , no reported changes in appetite , discussed with patient increasing dose of seroquel also discussed referral to [facility] program on discharge pt denied any current suicidal or homicidal ideations denied perceptual disturbances no reported side effects of medications Medical Problems: multiple inpatient hospitalizations, partial compliance DSM 5 Symptoms Update: cocaine use disorder cannabis use disorder alcohol use disorder hx of bipolar disorder Medication Change: Yes (increase seroquel) Medical Record Reviewed: Yes Mental Status Examination - Cognitive Function Orientation: Person, Place, Situation Attention: WNL Concentration: WNL Association: WNL Fund of Knowledge: Poor Decription of patient's judgement and insights: poor insight and judgement - Mood Mood: Depressed - Affect Affect: Constricted, Depressed - Speech Speech: Appropriate - Formal Thought Process Formal Thought Process: Circumstantial Psychotic Thoughts and Behaviors: pt denied psychotic symptoms, non elicited - Suicidal Ideation Suicidal Ideation: No - Homicidal Ideation Homicidal Ideation: No Goal/Treatment Plan - Goal/Treatment Plan Need for Continued Stay: Severe depression anxiety, Discharge may exacerbated symptoms Progress Toward Problem(s) and Goals/Treatment Plan: remeron 15mg qhs increase seroquel 300mg qhs with plan to uptitrate minipress 2mg qhs, wellbutrin 75mg daily motivational and supportive therapy
[2017-08-09 17:05] VITALS: RESP 18
[2017-08-09] MEDS: QUEtiapine 300 MG TABLET PO SCH (21:06)
[2017-08-10] MEDS: Pantoprazole 40 mg EC Tab PO SCH (12:17)
--- NOTE | 2017-08-10 15:07 | PCM.PYCHPN ---
Psychiatric Progress Note - Psychiatric Progress Note Patient seen today, length of contact: pt evaluated discussed with team chart reviewed Patient Chief Complaint: I am better today Problems Identified/Issues Discussed: pt evaluated , reported better mood, brighter affect, improved sleep, no reported changes in appetite , discussed referral to reb program on discharge pt denied any current suicidal or homicidal ideations denied perceptual disturbances no reported side effects of medications Medical Problems: multiple inpatient hospitalizations, partial compliance DSM 5 Symptoms Update: cocaine use disorder bipolar disorder Medication Change: No (increase seroquel) Medical Record Reviewed: Yes Mental Status Examination - Cognitive Function Orientation: Person, Place, Situation Attention: WNL Concentration: WNL Association: WNL Fund of Knowledge: Poor Decription of patient's judgement and insights: poor insight and judgement - Mood Mood: Depressed - Affect Affect: Constricted, Depressed - Speech Speech: Appropriate - Formal Thought Process Formal Thought Process: Circumstantial Psychotic Thoughts and Behaviors: pt denied psychotic symptoms, non elicited - Suicidal Ideation Suicidal Ideation: No - Homicidal Ideation Homicidal Ideation: No Goal/Treatment Plan - Goal/Treatment Plan Need for Continued Stay: Severe depression anxiety, Discharge may exacerbated symptoms Progress Toward Problem(s) and Goals/Treatment Plan: remeron 15mg qhs seroquel 300mg qhs minipress 2mg qhs, wellbutrin 75mg daily motivational and supportive therapy Estimated Date of D/C: 08/12/17
[2017-08-10] MEDS: QUEtiapine 300 MG TABLET PO SCH (21:30)
[2017-08-11] MEDS: Pantoprazole 40 mg EC Tab PO SCH (12:56)
--- NOTE | 2017-08-11 15:10 | PCM.PYCHPN ---
Psychiatric Progress Note - Psychiatric Progress Note Patient seen today, length of contact: pt evaluated discussed with team chart reviewed Patient Chief Complaint: I am feeling better Problems Identified/Issues Discussed: pt evaluated , reported better mood, brighter affect, improved sleep, no reported changes in appetite , agrreable to start outpatient [facility] on discharge pt denied any current suicidal or homicidal ideations denied perceptual disturbances no reported side effects of medications Medical Problems: multiple inpatient hospitalizations, partial compliance DSM 5 Symptoms Update: cocaine use disordr bipolar disorder Medication Change: No Medical Record Reviewed: Yes Mental Status Examination - Cognitive Function Orientation: Person, Place, Situation Attention: WNL Concentration: WNL Association: WNL Fund of Knowledge: Poor Decription of patient's judgement and insights: poor insight and judgement - Mood Mood: Neutral - Affect Affect: Constricted - Speech Speech: Appropriate - Formal Thought Process Formal Thought Process: Circumstantial Psychotic Thoughts and Behaviors: pt denied psychotic symptoms, non elicited - Suicidal Ideation Suicidal Ideation: No - Homicidal Ideation Homicidal Ideation: No Goal/Treatment Plan - Goal/Treatment Plan Need for Continued Stay: Severe depression anxiety, Discharge may exacerbated symptoms Progress Toward Problem(s) and Goals/Treatment Plan: remeron 15mg qhs seroquel 300mg qhs minipress 2mg qhs,increase wellbutrin to 150mg sr daily motivational and supportive therapy Estimated Date of D/C: 08/12/17
[2017-08-11] MEDS: QUEtiapine 300 MG TABLET PO SCH (21:05)
[2017-08-12] MEDS: Pantoprazole 40 mg EC Tab PO SCH (08:36)
[2017-08-12 08:37] VITALS: BP 112/56; PULSE 88
[2017-08-12] MEDS ORDERED: buPROPion SR 150 MG TABLET PO SCH (09:00)
[2017-08-12 09:25] VITALS: TEMP 97.7
--- NOTE | 2017-08-12 09:46 | PCM.PYCHDC ---
Mental Status Examination - Mental Status Examination Orientation: Person, Place, Situation Memory: Intact Mood: Neutral Affect: Broad Speech: Appropriate Attention: WNL Concentration: WNL Association: WNL Fund of Knowledge: WNL Formal Thought Process: No Impairment Description of patient's judgement and insight: fair insight and judgement Psychotic Thoughts and Behaviors: pt denied psychotic symptoms, non elicited Suicidal Ideation: No Current Homicidal Ideation?: No Discharge Summary - Discharge Note Reason for Hospitalization: pt requested help pt with previous diagnosis of polysubstance use, bipolar disorder, recently discharged from [facility], reportedly compliant with medications, pt relapsed on cocaine and cannabis, became increasingly depressed, started having suicidal ideation, attempted to overdose on seroquel, took 5pills, came to ER seeking help reported passive suicidal ideation without plan on the unit, low energy , anhedonia, denied homicidal ideations, denied command hallucinations Consultations:: List each consultation separately and include: 1. Reason for request. 2. Findings. 3. Follow-up Summary of Hospital Course include:: 1. Description of specific treatment plan utilized for patients during their course of treatmen. 2. Summarize the time- course for resolution of acute symptoms and/or regressed behaviors. 3. Describe issues identified and worked on during hospitalization. 4. Describe medication utilized. 5. Describe medical problems identified and treated. 6. Reassessment of suicide risk Summary of Hospital Course: pt on admission was started on seroquel it was uptitrated to 300mg qhs for bipolar depression, he was also started on wellburtin for depression and to help for cannabis cravings, pt was cooperative with treatment, motivational therapy provided pt on discharge denied any current suicidal or homicidal ideations denied perceptual disturbances, pt advised to continue to follow up with the [facility] program - Final Diagnosis (DSM 5) Condition upon Discharge: FAIR DSM 5: cocaine induced mood disorder with depressive features cocaine use disorder cannabis use disorder hx of bipolar disorder Disposition: HOME/ ROUTINE Follow-up Treatment Plan: remeron 15mg qhs seroquel 300mg qhs minipress 2mg qhs,increase wellbutrin to 150mg sr daily motivational and supportive therapy Prescriptions/Medication Reconciliation: buPROPion SR [Wellbutrin SR 150 MG] 150 mg PO DAILY 30 Days #30 tab Mirtazapine [Remeron] 15 mg PO HS 30 Days #30 tab QUEtiapine [SEROquel] 300 mg PO HS 30 Days #30 tab - Antipsychotic Medications Pt discharged on 2 or more routine antipsychotic medications: No
== END 2017-08-12 08:55 | disposition home or self-care (01) | DRG 747 ==
LOC: H.ER 22:05 → H.ERHOLD 08-07 02:05 → H.PSYCH 08-07 03:53
PROVIDERS: ADMIT Psychiatry & Neurology Psychiatry; ATTEND Psychiatry & Neurology Psychiatry
PROC: HZ57ZZZ Individual Psychotherapy for Substance Abuse Treatment, Motivational Enhancement (ICD-10-PCS; principal; 2017-08-07)
PROC: HZ59ZZZ Individual Psychotherapy for Substance Abuse Treatment, Supportive (ICD-10-PCS; 2017-08-07)
DX: F14.94 Cocaine use, unspecified with cocaine-induced mood disorder (principal); J44.9 Chronic obstructive pulmonary disease, unspecified; F31.9 Bipolar disorder, unspecified; R45.851 Suicidal ideations; F12.90 Cannabis use, unspecified, uncomplicated; Z91.013 Allergy to seafood; E78.00 Pure hypercholesterolemia, unspecified; I10 Essential (primary) hypertension; G47.00 Insomnia, unspecified; F17.200 Nicotine dependence, unspecified, uncomplicated

== ENCOUNTER 2017-08-22 09:36 | Emergency (ER) | payer MEDICAID, OTHER ==
[2017-08-22 09:53] VITALS: BMI 29.8
[2017-08-22 09:54] VITALS: BP 132/85; PULSE 71; RESP 20; TEMP 98.4; O2SAT 100
[2017-08-22] MEDS ORDERED: Sodium Chloride 0.9% 1,000 ML IV STA (10:39)
[2017-08-22 11:07] LABS: BASO # 0.1 K/uL (0.0-0.2); BASO % 1.2 % (0.0-2.0); EOS # 0.1 K/uL (0.0-0.7); EOS % 2.1 % (0.0-4.0); HEMOGLOBIN 12.8 g/dL (12.0-18.0); LYMPH # 1.7 K/uL (1.0-4.3); LYMPH % 26.3 % (20.0-40.0); MEAN CELL VOLUME 85.7 fl (80.0-94.0); MEAN CORPUSCULAR HGB CONC 33.8 g/dL (33.0-37.0); MONO # 0.7 K/uL (0.0-0.8); MONO % 10.5 % (0.0-10.0); NEUT # 3.8 K/uL (1.8-7.0); NEUT % 59.9 % (50.0-75.0); NRBC % 0.1 % (0.0-0.0); RBC 4.41 Mil/uL (4.40-5.90); RED CELL DISTRIBUTION WIDTH 15.4 % (11.5-14.5); WHITE BLOOD COUNT 6.3 K/uL (4.8-10.8)
[2017-08-22 11:31] LABS: ALB/GLOB RATIO 1.1 (1.0-2.1); ALBUMIN 3.9 g/dL (3.5-5.0); ALT/SGPT 42 U/L (21-72); AST/SGOT 34 U/L (17-59); BLOOD UREA NITROGEN 18 mg/dl (9-20); CALCIUM 8.9 mg/dL (8.4-10.2); GFR AFRICAN-AMERICAN > 60; GFR NON-AFRICAN AMERICAN > 60
--- NOTE | 2017-08-22 11:31 | RAD ---
HISTORY: cough, feverish COMPARISON: Chest radiograph dated 07/31/2017. TECHNIQUE: Chest PA and lateral FINDINGS: LUNGS: No active pulmonary disease. PLEURA: No significant pleural effusion identified. No pneumothorax apparent. CARDIOVASCULAR: Cardiomediastinal silhouette stably enlarged. OSSEOUS STRUCTURES: Unchanged. VISUALIZED UPPER ABDOMEN: Normal. OTHER FINDINGS: None. IMPRESSION: No active disease.
--- NOTE | 2017-08-22 12:06 | ED PDOC ---
HPI: General Adult Time Seen by Provider: 08/22/17 10:01 Chief Complaint (Nursing): Cough, Cold, Congestion Chief Complaint (Provider): Cough, feverish, diarrhea, vomiting x 2 History Per: Patient History/Exam Limitations: no limitations Onset/Duration Of Symptoms: Days Have you had recent travel within the past 21 days to any of the following countries: [place], [place], [place] or [place]?: No Current Symptoms Are (Timing): Still Present Additional Complaint(s): 52 yo male with HTN presents with cough and feverish for 1 week. Pt states he has diarrhea a few days ago but it resolved. Pt states he vomited twice today but is no longer nauseous. Pt denies abdominal pain. Past Medical History Reviewed: Historical Data, Nursing Documentation, Vital Signs Vital Signs: Last Vital Signs Temp 98.4 F 08/22/17 09:53 Pulse 71 08/22/17 09:53 Resp 20 08/22/17 09:53 BP 132/85 08/22/17 09:53 Pulse Ox 100 08/22/17 12:13 - Medical History PMH: Anxiety, Bipolar Disorder, COPD, Depression, HTN, Hypercholesterolemia, Post Traumatic Stress Disorder, Schizophrenia Denies: Diabetes, Hepatitis, HIV, Chronic Kidney Disease, Seizures, Sexually Transmitted Disease - Surgical History Surgical History: No Surg Hx - Family History Family History: States: Unknown Family Hx - Living Arrangements Living Arrangements: With Family - Social History Current smoker - smoking cessation education provided: No - Immunization History Hx Tetanus Toxoid Vaccination: No Hx Influenza Vaccination: Yes Hx Pneumococcal Vaccination: No - Home Medications Home Medications: Ambulatory Orders Medication Instructions Recorded Prazosin HCL [Minipress] 2 mg PO HS #30 cap 07/10/17 amLODIPine [Norvasc] 5 mg PO DAILY #30 tab 07/10/17 Pantoprazole [Protonix EC Tab] 40 mg PO DAILY #10 tab 08/04/17 Mirtazapine [Remeron] 15 mg PO HS 30 Days #30 tab 08/12/17 Prazosin HCl [Minipress] 2 mg PO HS #0 cap 08/12/17 QUEtiapine [SEROquel] 300 mg PO HS 30 Days #30 tab 08/12/17 buPROPion SR [Wellbutrin SR 150 MG] 150 mg PO DAILY 30 Days #30 tab 08/12/17 Azithromycin [Zithromax] 250 mg PO DAILY #6 tab 08/22/17 - Allergies Allergies/Adverse Reactions: Allergies Allergy/AdvReac Type Severity Reaction Status Date / Time shrimp Allergy Mild SWELLING Verified 07/31/17 05:57 shellfish derived Allergy SWELLING Verified 08/06/17 22:14 Review of Systems ROS Statement: Except As Marked, All Systems Reviewed And Found Negative Constitutional: Positive for: Fever, Chills, Malaise Respiratory: Positive for: Cough Gastrointestinal: Positive for: Vomiting, Diarrhea. Negative for: Abdominal Pain Physical Exam - Reviewed Nursing Documentation Reviewed: Yes Vital Signs Reviewed: Yes - Physical Exam Appears: Positive for: Well, Non-toxic, No Acute Distress Head Exam: Positive for: ATRAUMATIC, NORMAL INSPECTION, NORMOCEPHALIC Skin: Positive for: Normal Color, Warm, DRY Eye Exam: Positive for: Normal appearance ENT: Positive for: Normal ENT Inspection Neck: Positive for: Normal, Painless ROM Cardiovascular/Chest: Positive for: Regular Rate, Rhythm Respiratory: Positive for: Normal Breath Sounds. Negative for: Accessory Muscle Use, Respiratory Distress Gastrointestinal/Abdominal: Positive for: Normal Exam, Soft. Negative for: Tenderness Back: Positive for: Normal Inspection Extremity: Positive for: Normal ROM Neurologic/Psych: Positive for: Alert, Oriented - Laboratory Results Result Diagrams: 08/22/17 10:57 08/22/17 10:57 - ECG O2 Sat by Pulse Oximetry: 100 Pulse Ox Interpretation: Normal Medical Decision Making Medical Decision Making: CXR - Normal. Labs normal. Influenza (-) Disposition - Clinical Impression Clinical Impression: Cough, Pharyngitis - Patient ED Disposition Is Patient to be Admitted: No Counseled Patient/Family Regarding: Diagnosis, Need For Followup, Rx Given - Disposition Referrals: [facility] [Outside] Disposition: Routine/Home Disposition Time: 12:15 Condition: GOOD Prescriptions: Azithromycin [Zithromax] 250 mg PO DAILY #6 tab Instructions: Sore Throat in Adults Forms: [facility] (Korean)
== END 2017-08-22 12:49 | disposition home or self-care (01) ==
LOC: H.ER 09:36
DX: R05 Cough (principal); J02.9 Acute pharyngitis, unspecified; E78.00 Pure hypercholesterolemia, unspecified; F20.9 Schizophrenia, unspecified; F31.9 Bipolar disorder, unspecified; F43.10 Post-traumatic stress disorder, unspecified; I10 Essential (primary) hypertension; J44.9 Chronic obstructive pulmonary disease, unspecified
CPT/HCPCS: 71046; 80053; 85025; 87804; 99282; J7040

== ENCOUNTER 2017-09-03 07:12 | Inpatient (IN) | payer MEDICAID ==
[2017-09-03 07:13] VITALS: BMI 29.8
[2017-09-03] MEDS ORDERED: Sodium Chloride 0.9% 1,000 ML IV STA (07:40)
--- NOTE | 2017-09-03 07:47 | ED PDOC ---
HPI: Psych/Substance Abuse Time Seen by Provider: 09/03/17 07:36 Chief Complaint (Nursing): Psychiatric Evaluation History Per: Patient History/Exam Limitations: no limitations Current Symptoms Are (Timing): Still Present Suicide/Self Injury Attempted (Context): Ingestion (6 pills of trazodone, 4 pills of seroquel, 2 bottles of alcohol and cocaine) Additional Complaint(s): 52-year-old male presents to ED for psychiatric evaluation. Pt admits to ingestion of 6 pills of trazodone, 4 pills of seroquel, 2 bottles of alcohol and cocaine 19:00 last night due to hearing voices telling him to kill himself. Pt is depressed and states he has no support system and wants to kill himself. PMD: Provider JOSHUA Past Medical History Reviewed: Historical Data, Nursing Documentation, Vital Signs Vital Signs: Last Vital Signs Temp 98.4 F 09/03/17 07:23 Pulse 86 09/03/17 07:23 Resp 17 09/03/17 07:23 BP 158/100 H 09/03/17 07:23 Pulse Ox 99 09/03/17 07:23 - Medical History PMH: Anxiety, Bipolar Disorder, COPD, Depression, HTN, Hypercholesterolemia, Post Traumatic Stress Disorder, Schizophrenia Denies: Diabetes, Hepatitis, HIV, Chronic Kidney Disease, Seizures, Sexually Transmitted Disease - Family History Family History: States: Unknown Family Hx - Immunization History Hx Tetanus Toxoid Vaccination: No Hx Influenza Vaccination: Yes Hx Pneumococcal Vaccination: No - Home Medications Home Medications: Ambulatory Orders Medication Instructions Recorded Prazosin HCL [Minipress] 2 mg PO HS #30 cap 07/10/17 amLODIPine [Norvasc] 5 mg PO DAILY #30 tab 07/10/17 Pantoprazole [Protonix EC Tab] 40 mg PO DAILY #10 tab 08/04/17 Mirtazapine [Remeron] 15 mg PO HS 30 Days #30 tab 08/12/17 Prazosin HCl [Minipress] 2 mg PO HS #0 cap 08/12/17 QUEtiapine [SEROquel] 300 mg PO HS 30 Days #30 tab 08/12/17 buPROPion SR [Wellbutrin SR 150 MG] 150 mg PO DAILY 30 Days #30 tab 08/12/17 Azithromycin [Zithromax] 250 mg PO DAILY #6 tab 08/22/17 - Allergies Allergies/Adverse Reactions: Allergies Allergy/AdvReac Type Severity Reaction Status Date / Time shrimp Allergy Mild SWELLING Verified 07/31/17 05:57 shellfish derived Allergy SWELLING Verified 09/03/17 07:43 Review of Systems ROS Statement: Except As Marked, All Systems Reviewed And Found Negative Psych: Positive for: Depression, Suicidal ideation Physical Exam - Reviewed Nursing Documentation Reviewed: Yes Vital Signs Reviewed: Yes - Physical Exam Eye Exam: Positive for: Normal appearance, EOMI, PERRL Cardiovascular/Chest: Positive for: Regular Rate, Rhythm Respiratory: Positive for: Normal Breath Sounds (Lungs clear). Negative for: Respiratory Distress Gastrointestinal/Abdominal: Positive for: Normal Exam, Soft. Negative for: Tenderness Extremity: Negative for: Deformity, Swelling Neurologic/Psych: Positive for: Alert, Oriented (x 3). Negative for: Motor/ Sensory Deficits - Laboratory Results Result Diagrams: 09/03/17 08:10 09/03/17 08:10 - ECG O2 Sat by Pulse Oximetry: 99 (RA) Pulse Ox Interpretation: Normal Medical Decision Making Medical Decision Making: Time: 07:39 Plan: - EKG - Acetaminophen - Alcohol Serum - CMP - Drug Screen, Urine - Salicylate - Troponin I - ED Urine Dipstick - CBC - Prothrombin Time - CXR - Sodium Chloride 0.9% 1,000 ml IV 100 mls/hr - 1:1 Observation Time: 08:00 CXR FINDINGS: LUNGS: No active pulmonary disease. PLEURA: No significant pleural effusion identified, no pneumothorax apparent. CARDIOVASCULAR: Normal. OSSEOUS STRUCTURES: No significant abnormalities. VISUALIZED UPPER ABDOMEN: Normal. OTHER FINDINGS: None. IMPRESSION: No interval acute cardiopulmonary disease appreciated. Scribe Attestation: Documented by Avel Tipton, acting as a scribe for Kaiden Calhoun MD Consulted with poison control Medically stable for psychiatric admission Provider Scribe Attestation: All medical record entries made by the Scribe were at my direction and personally dictated by me. I have reviewed the chart and agree that the record accurately reflects my personal performance of the history, physical exam, medical decision making, and the department course for this patient. I have also personally directed, reviewed, and agree with the discharge instructions and disposition. Disposition - Clinical Impression Clinical Impression: Depression - Patient ED Disposition Is Patient to be Admitted: Yes - Disposition Disposition Time: 13:12 Condition: FAIR Forms: [employer] (Eritrean) - Pt Status Changed To: Hospital Disposition Of: Inpatient - Admit Certification Admit to Inpatient:: After my assessment, the patient will require hospitalization for at least two midnights. This is because of the severity of symptoms shown, intensity of services needed, and/or the medical risk in this patient being treated as an outpatient. - POA Present On Arrival: None
--- NOTE | 2017-09-03 08:02 | RAD ---
HISTORY: cough COMPARISON: Chest radiographs 08/22/2017. FINDINGS: LUNGS: No active pulmonary disease. PLEURA: No significant pleural effusion identified, no pneumothorax apparent. CARDIOVASCULAR: Normal. OSSEOUS STRUCTURES: No significant abnormalities. VISUALIZED UPPER ABDOMEN: Normal. OTHER FINDINGS: None. IMPRESSION: No interval acute cardiopulmonary disease appreciated.
[2017-09-03 08:25] LABS: BASO # 0.1 K/uL (0.0-0.2); BASO % 1.2 % (0.0-2.0); EOS # 0.2 K/uL (0.0-0.7); EOS % 2.6 % (0.0-4.0); HEMOGLOBIN 12.8 g/dL (12.0-18.0); LYMPH # 1.5 K/uL (1.0-4.3); LYMPH % 24.2 % (20.0-40.0); MEAN CELL VOLUME 84.3 fl (80.0-94.0); MEAN CORPUSCULAR HGB CONC 34.4 g/dL (33.0-37.0); MEAN PLATELET VOLUME 7.9 fl (7.2-11.7); MONO # 0.6 K/uL (0.0-0.8); MONO % 9.9 % (0.0-10.0); NEUT # 3.7 K/uL (1.8-7.0); NEUT % 62.1 % (50.0-75.0); NRBC % 0.1 % (0.0-0.0); RBC 4.41 Mil/uL (4.40-5.90); RED CELL DISTRIBUTION WIDTH 15.3 % (11.5-14.5)
[2017-09-03 08:36] LABS: INR 1.1 (0.9-1.2)
[2017-09-03 08:37] LABS: ACETAMINOPHEN < 10.0 ug/ml (10.0-30.0); SALICYLATE < 1.0 mg/dl
[2017-09-03 08:42] LABS: ALB/GLOB RATIO 1.2 (1.0-2.1); ALBUMIN 3.9 g/dL (3.5-5.0); ALT/SGPT 34 U/L (21-72); AST/SGOT 29 U/L (17-59); BLOOD UREA NITROGEN 14 mg/dl (9-20); CALCIUM 8.6 mg/dL (8.4-10.2); GFR AFRICAN-AMERICAN > 60; GFR NON-AFRICAN AMERICAN > 60
[2017-09-03 10:02] LABS: BARBITURATES, UR NEGATIVE (NEGATIVE); BENZODIAZEPINES, UR NEGATIVE (NEGATIVE); OPIATES, UR NEGATIVE (NEGATIVE); PHENCYCLIDINE, UR NEGATIVE (NEGATIVE)
[2017-09-03 13:13] VITALS: O2SAT 99
[2017-09-03] MEDS ORDERED: Magnesium Hydroxide Susp 30 ml UD PO PRN (15:57)
[2017-09-03] MEDS ORDERED: Alum-Mag Hydrox-Simethicone Susp (30 mL) PO PRN (15:57)
[2017-09-03] MEDS ORDERED: DiphenhydrAMINE 50 mg/ml Inj IM PRN (15:57)
--- NOTE | 2017-09-03 16:16 | PCM.BM ---
<Aaron Veloz - Last Filed: 09/03/17 16:16> Treatment Plan Problems - Problems identified on initial assessmt Problem 1 Date Initiated: 09/03/17 Time Initiated: 16:00 Date resolved: 09/10/17 Assessment reference: NA Status: Active Treatment assets and liabiliti Patient Assests: adapts well, cooperative, motivated, ADL independent, physically healthy, negotiates basic needs, cognitively intact, good interpersonal skills Patient Liabilities: financial problems, poor support system, substance abuse, medical problems, auditory impairment - Milieu Protocol Maintain good personal hygiene: daily Encourage regular showers, daily Remind patient to perform daily oral care, daily Assist patient to perform ADL's Conduct patient checks and document Observation sheet: Q15 minutes Maintain personal safety: every shift Educate patient to report safety concerns to staff, every shift Monitor environment for contraband/sharps Medication safety: Monitor for expected outcome, potential side effects: daily, Assess barriers to learning: daily, Assess readiness for medication education: daily <Brandyn Franco - Last Filed: 09/04/17 09:38> - Diagnosis (1) Depression Status: Acute Interventions: psychotherapy, pharmacotherapy 09/04/17 09:38
[2017-09-03 16:30] VITALS: RESP 18
--- NOTE | 2017-09-03 17:17 | CP.PCM.CON ---
History of Present Illness - History of Present Illness History of Present Illness: CC: Depression This is a 52 year old male with a pmh of bipolar disorder, asthma, hypertension , hypercholesterolemia, who was admitted to inpatient psych due to depression and polysubstance abuse Patient has polysubstance abuse and took Seroquel, cocaine, and marijuana on the day of admission. [facility]. He currently has no complaints. Patient denies chest pain, shortness of breath, fevers, chills, nausea, vomiting, diarrhea, headache. All of the patient's questions were answered at the bedside. Review of Systems - Review of Systems Review of Systems: A 12 point review of systems was conducted and found to be negative other than what was mentioned in the HPI. Past Patient History - Infectious Disease Hx of Infectious Diseases: None - Past Medical History & Family History Past Medical History?: Yes - Past Social History Smoking Status: Current Some Days Smoker Alcohol: > 2 Drinks/Day Drugs: Cannabis, Cocaine, Prescription medications Home Situation {Lives}: Homeless - CARDIAC Hx Cardiac Disorders: No - PULMONARY Hx Tuberculosis: No - NEUROLOGICAL HX Cerebrovascular Accident: No Hx Seizures: No - HEENT Hx HEENT Problems: No - RENAL Hx Chronic Kidney Disease: No - ENDOCRINE/METABOLIC Hx Endocrine Disorders: No - HEMATOLOGICAL/ONCOLOGICAL Hx Cancer: No Hx Human Immunodeficiency Virus (HIV): No - INTEGUMENTARY Hx Dermatological Problems: No - MUSCULOSKELETAL/RHEUMATOLOGICAL Hx Musculoskeletal Disorders: No Hx Falls: No - GASTROINTESTINAL Hx Gastrointestinal Disorders: No - GENITOURINARY/GYNECOLOGICAL Hx Sexually Transmitted Disorders: No - PSYCHIATRIC Hx Bipolar Disorder: Yes Hx Depression: Yes Hx Substance Use: Yes (MJ and cocaine) - SURGICAL HISTORY Hx Surgeries: No - ANESTHESIA Hx Anesthesia: No Hx Anesthesia Reactions: No Hx Malignant Hyperthermia: No Meds Allergies/Adverse Reactions: Allergies Allergy/AdvReac Type Severity Reaction Status Date / Time shrimp Allergy Mild SWELLING Verified 07/31/17 05:57 shellfish derived Allergy SWELLING Verified 09/03/17 07:43 - Medications Medications: Current Medications Acetaminophen (Tylenol 325mg Tab) 650 mg PO Q4 PRN PRN Reason: Pain, moderate (4-7) Al Hydrox/Mg Hydrox/Simethicone (Maalox Plus 30 Ml) 30 ml PO Q4 PRN PRN Reason: Dyspepsia Amlodipine Besylate (Norvasc) 5 mg PO DAILY ALIS Diphenhydramine HCl (Benadryl) 50 mg IM Q6 PRN PRN Reason: Extrapyramidal S/S Unable PO Diphenhydramine HCl (Benadryl) 50 mg PO Q6 PRN PRN Reason: Extrapyramidal Symptoms Haloperidol (Haldol) 5 mg PO Q4 PRN PRN Reason: Agitation Haloperidol Lactate (Haldol) 5 mg IM Q4 PRN PRN Reason: Agitation, Unable to Take PO Sodium Chloride (Sodium Chloride 0.9%) 1,000 mls @ 100 mls/hr IV .Q10H STA Stop: 09/03/17 17:39 Last Admin: 09/03/17 08:12 Dose: 100 mls/hr Lorazepam (Ativan) 2 mg IM Q4 PRN PRN Reason: Anxiety/Agitation,Unable PO Lorazepam (Ativan) 2 mg PO Q4 PRN PRN Reason: Anxiety/Agitation Magnesium Hydroxide (Milk Of Magnesia) 30 ml PO HS PRN PRN Reason: Constipation Mirtazapine (Remeron) 15 mg PO HS ALIS Pantoprazole Sodium (Protonix Ec Tab) 40 mg PO DAILY ALIS Prazosin HCl (Minipress) 2 mg PO HS ALIS Physical Exam - Additional Findings Additional findings: Physical exam: Constitutional- cooperative, awake, alert Head- NCAT, PERRL Eye- PERRL, EOMI ENT- normal exam, MMM. Neck- normal inspection, supple, no JVD Respiratory- CTAB, no wheezes rales rhonchi Cardiovascular- RRR, +S1, +S2 no MRG GI/Abdominal- normal bowel sounds, soft, no mass, no hsm Skin- warm, dry Extremities Exam- normal capillary refill, normal inspection Neurological Exam- alert, awake, oriented Psych- normal mood, normal affect Results - Vital Signs Recent Vital Signs: Last Vital Signs Temp 97.5 F L 09/03/17 16:30 Pulse 73 09/03/17 16:30 Resp 18 09/03/17 16:30 BP 143/107 H 09/03/17 16:30 Pulse Ox 99 09/03/17 14:46 - Labs Result Diagrams: 09/03/17 08:10 09/03/17 08:10 Labs: Laboratory Results - last 24 hr 05/09/18 05/09/18 05/09/18 08:10 08:10 08:10 WBC 6.0 RBC 4.41 Hgb 12.8 Hct 37.2 MCV 84.3 MCH 29.0 MCHC 34.4 RDW 15.3 H Plt Count 238 MPV 7.9 Neut % (Auto) 62.1 Lymph % (Auto) 24.2 Bartholomew % (Auto) 9.9 Eos % (Auto) 2.6 Baso % (Auto) 1.2 Neut # (Auto) 3.7 Lymph # (Auto) 1.5 Bartholomew # (Auto) 0.6 Eos # (Auto) 0.2 Baso # (Auto) 0.1 PT INR Sodium 143 Potassium 3.6 Chloride 104 Carbon Dioxide 25 Anion Gap 18 BUN 14 Creatinine 0.9 Est GFR ( Amer) > 60 Est GFR (Non-Af Amer) > 60 Random Glucose 84 Calcium 8.6 Total Bilirubin 0.5 AST 29 ALT 34 Alkaline Phosphatase 94 Troponin I < 0.0120 Total Protein 7.2 Albumin 3.9 Globulin 3.3 Albumin/Globulin Ratio 1.2 Salicylates < 1.0 Urine Opiates Screen Urine Methadone Screen Acetaminophen < 10.0 L Ur Barbiturates Screen Ur Phencyclidine Scrn Ur Amphetamines Screen U Benzodiazepines Scrn U Oth Cocaine Metabols U Cannabinoids Screen Alcohol, Quantitative < 10 09/03/17 09/03/17 08:10 09:27 WBC RBC Hgb Hct MCV MCH MCHC RDW Plt Count MPV Neut % (Auto) Lymph % (Auto) Bartholomew % (Auto) Eos % (Auto) Baso % (Auto) Neut # (Auto) Lymph # (Auto) Bartholomew # (Auto) Eos # (Auto) Baso # (Auto) PT 12.0 INR 1.1 Sodium Potassium Chloride Carbon Dioxide Anion Gap BUN Creatinine Est GFR ( Amer) Est GFR (Non-Af Amer) Random Glucose Calcium Total Bilirubin AST ALT Alkaline Phosphatase Troponin I Total Protein Albumin Globulin Albumin/Globulin Ratio Salicylates Urine Opiates Screen Negative Urine Methadone Screen Negative Acetaminophen Ur Barbiturates Screen Negative Ur Phencyclidine Scrn Negative Ur Amphetamines Screen Negative U Benzodiazepines Scrn Negative U Oth Cocaine Metabols Positive H U Cannabinoids Screen Positive H Alcohol, Quantitative Assessment & Plan - Assessment and Plan (Free Text) Plan: This is a 52 year old male with a pmh of bipolar disorder, asthma, hypertension , hypercholesterolemia, who was admitted to inpatient psych due to depression and polysubstance abuse Patient has polysubstance abuse and took Seroquel, cocaine, and marijuana on the day of admission. He [facility] [place] [facility]. He currently has no complaints. Patient denies chest pain, shortness of breath, fevers, chills, nausea, vomiting, diarrhea, headache. All of the patient's questions were answered at the bedside. 1) Essential hypertension - Continue Norvasc 2) Hypercholesterolemia hx - Not on statin - Lipid panel unremarkable, no need to start cholesterol medication 3) Bipolar disorder - Management as per psychiatry
[2017-09-04 08:50] VITALS: BP 148/101; PULSE 76
[2017-09-04] MEDS ORDERED: Pantoprazole 40 mg EC Tab PO SCH (09:00)
[2017-09-04 09:38] VITALS: TEMP 98.2
--- NOTE | 2017-09-04 09:56 | PCM.PSYCH ---
Initial Psychiatric Evaluation - Initial Psychiatric Evaluation Type of Admission: Voluntary Legal Status: Capacity Chief Complaint (in patient's own words): I just wanted to libertarian Patient's Reaction to Hospitalization: pt signed voluntary History of Present Illness and Precipitating Events: pt with previous diagnosis of substance use and bipolar disorder, non compliant with medications or follow up, reportedly became depressed due to financial stressors and homelessness, on day of evaluation , started having suicidal ideations,, overdosed on trazodone , seroquel and cocaine , came to ER seeking help on the unit patient denied any active suicidal or homicidal ideation, denied perceptual disturbances urine toxicology positive for cocaine and cannabis Current Medications: Active Medications Generic Name Dose Route Start Last Admin Trade Name Freq PRN Reason Stop Dose Admin Acetaminophen 650 mg 09/03/17 15:57 Tylenol 325mg Tab PO Q4 PRN Pain, moderate (4-7) Al Hydrox/Mg Hydrox/Simethicone 30 ml 09/03/17 15:57 Maalox Plus 30 Ml PO Q4 PRN Dyspepsia Amlodipine Besylate 5 mg 09/03/17 17:00 09/04/17 08:48 Norvasc PO 5 mg DAILY ALIS Administration Diphenhydramine HCl 50 mg 09/03/17 15:57 Benadryl IM Q6 PRN Extrapyramidal S/S Unable PO Diphenhydramine HCl 50 mg 09/03/17 15:57 Benadryl PO Q6 PRN Extrapyramidal Symptoms Haloperidol 5 mg 09/03/17 15:57 Haldol PO Q4 PRN Agitation Haloperidol Lactate 5 mg 09/03/17 15:57 Haldol IM Q4 PRN Agitation, Unable to Take PO Lorazepam 2 mg 09/03/17 15:57 Ativan IM Q4 PRN Anxiety/Agitation,Unable PO Lorazepam 2 mg 09/03/17 15:57 Ativan PO Q4 PRN Anxiety/Agitation Magnesium Hydroxide 30 ml 09/03/17 15:57 Milk Of Magnesia PO HS PRN Constipation Mirtazapine 15 mg 09/03/17 22:00 09/03/17 21:26 Remeron PO 15 mg HS ALIS Administration Pantoprazole Sodium 40 mg 09/04/17 09:00 09/04/17 08:48 Protonix Ec Tab PO 40 mg DAILY ALIS Administration Prazosin HCl 2 mg 09/03/17 22:00 09/03/17 21:22 Minipress PO 2 mg HS ALIS Administration Past Psychiatric History - Past Psychiatric History Explanation of prior treatment: multiple inpatient hospitalizations, history of non compliance History of ETOH/Drug Use: cocaine and cannabis use disorder Pertinent Medical Hx (Current Medical&Sleep Prob, Allergies): Allergies Allergy/AdvReac Type Severity Reaction Status Date / Time shrimp Allergy Mild SWELLING Verified 07/31/17 05:57 shellfish derived Allergy SWELLING Verified 09/03/17 07:43 amLODIPine [Norvasc] 5 mg PO DAILY #30 tab 07/10/17 Pantoprazole [Protonix EC Tab] 40 mg PO DAILY #10 tab 08/04/17 Mirtazapine [Remeron] 15 mg PO HS 30 Days #30 tab 08/12/17 Prazosin HCl [Minipress] 2 mg PO HS #0 cap 08/12/17 QUEtiapine [SEROquel] 300 mg PO HS 30 Days #30 tab 08/12/17 buPROPion SR [Wellbutrin SR 150 MG] 150 mg PO DAILY 30 Days #30 tab 08/12/17 Mirtazapine [Remeron] 15 mg PO HS tab 09/04/17 Mental Status Examination - Personal Presentation Personal Presentation: Looks older than stated age - Affect Affect: Constricted - Motor Activity Motor Activity: Calm - Reliability in Providing Information Reliability in Providing Information: Poor, due to altered mood - Speech Speech: Tangential - Mood Mood: Depressed - Hallucinations/Delusions Additional comments: pt denied perceptual disturbances, non elicited - Obsessions/Compulsions Obsessions: No Compulsions: No - Cognitive Functions Orientation: Person, Place Sensorium: Alert Abstract Thinking: [place] Judgement: Imparied, as evidence by: Poor judgement, Imparied, as evidence by: Lack of insight into illness - Risk Risk: Diminished functioning - Strength & Assets Inventory Strength & Assets Inventory: Life experience - Limitations Additional comments: poor compliance DSM 5 DX - DSM 5 DSM 5 Diagnosis: cocaine induced mood disorder with depressive features cannabis use disorder cocaine use disorder bipolar disorder depressed - Recommended/Plan of Treatment Treatment Recommendations and Plan of Treatment: pt will be started on remeron 15mg qhs seroquel 100mg qhs with plan to uptitrate motivational and supportive therapy
--- NOTE | 2017-09-04 10:03 | PCM.PYCHDC ---
Mental Status Examination - Mental Status Examination Orientation: Person, Place, Situation Memory: Intact Mood: Neutral Affect: Constricted Speech: Appropriate Attention: WNL Concentration: WNL Association: WNL Fund of Knowledge: WNL Formal Thought Process: Circumstantial Description of patient's judgement and insight: poor insight and judgment Psychotic Thoughts and Behaviors: pt denied perceptual disturbances, non elicited Suicidal Ideation: No Current Homicidal Ideation?: No Discharge Summary - Discharge Note Reason for Hospitalization: pt signed voluntary pt with previous diagnosis of substance use and bipolar disorder, non compliant with medications or follow up, reportedly became depressed due to financial stressors and homelessness, on day of evaluation , started having suicidal ideations,, overdosed on trazodone , seroquel and cocaine , came to ER seeking help on the unit patient denied any active suicidal or homicidal ideation, denied perceptual disturbances urine toxicology positive for cocaine and cannabis Laboratory Data: Abnormal Lab Results 09/03/17 09:27 Urine Opiates Screen Negative Urine Methadone Screen Negative Ur Barbiturates Screen Negative Ur Phencyclidine Scrn Negative Ur Amphetamines Screen Negative U Benzodiazepines Scrn Negative U Oth Cocaine Metabols Positive H U Cannabinoids Screen Positive H Consultations:: List each consultation separately and include: 1. Reason for request. 2. Findings. 3. Follow-up Summary of Hospital Course include:: 1. Description of specific treatment plan utilized for patients during their course of treatmen. 2. Summarize the time- course for resolution of acute symptoms and/or regressed behaviors. 3. Describe issues identified and worked on during hospitalization. 4. Describe medication utilized. 5. Describe medical problems identified and treated. 6. Reassessment of suicide risk Summary of Hospital Course: pt on admission was started on remeron 15mg qhs and seroquel 100mg qhs pt next day requested to be discharged, he denied any current suicidal or homicidal ideations, pt was advised to continue treatment with referral to rehab, pt declined at current mental status pt does not meet criteria for involuntary comittment , at current mental ststus denied any current suicidal or homicidal ideations, denied perceptual disturbances, non elicited pt was advised about the risk of possible relapse and overdose pt signed for discharge against medical advise - Diagnosis (1) Depression Current Visit: Yes Status: Acute - Final Diagnosis (DSM 5) Condition upon Discharge: FAIR DSM 5: cocaine induced mood disorder with depressive features cocaine use disorder cannabis use disorder hx of bipolar disorder depressed Disposition: HOME/ ROUTINE Follow-up Treatment Plan: pt will be started on remeron 15mg qhs seroquel 100mg qhs with plan to uptitrate motivational and supportive therapy
--- NOTE | 2017-09-04 12:25 | CARD ---
APPROVED REPORT EKG Measurement Heart [id number] <Conclusion> Normal sinus rhythm Possible Left atrial enlargement T wave abnormality, consider inferior ischemia Abnormal ECG
--- NOTE | 2017-09-04 12:26 | CARD ---
APPROVED REPORT EKG Measurement Heart [id number] MT [id number] <Conclusion> Normal sinus rhythm Possible Left atrial enlargement Left ventricular hypertrophy T wave abnormality, consider inferior ischemia Abnormal ECG
== END 2017-09-04 13:52 | disposition left against medical advice (07) | DRG 746 ==
LOC: H.ER 07:12 → H.ERHOLD 13:10 → H.PSYCH 15:38
PROVIDERS: ADMIT Psychiatry & Neurology Psychiatry; ATTEND Psychiatry & Neurology Psychiatry
PROC: HZ52ZZZ Individual Psychotherapy for Substance Abuse Treatment, Cognitive-Behavioral (ICD-10-PCS; principal; 2017-09-03)
PROC: GZHZZZZ Group Psychotherapy (ICD-10-PCS; 2017-09-03)
PROC: GZ58ZZZ Individual Psychotherapy, Cognitive-Behavioral (ICD-10-PCS; 2017-09-03)
DX: F14.14 Cocaine abuse with cocaine-induced mood disorder (principal); F31.9 Bipolar disorder, unspecified; F12.10 Cannabis abuse, uncomplicated; R45.851 Suicidal ideations; Z91.19 Patient's noncompliance with other medical treatment and regimen; I10 Essential (primary) hypertension; J45.909 Unspecified asthma, uncomplicated; E78.00 Pure hypercholesterolemia, unspecified; F17.210 Nicotine dependence, cigarettes, uncomplicated; Z91.013 Allergy to seafood; Z59.0 Homelessness

== ENCOUNTER 2017-09-12 23:06 | Emergency (ER) | payer MEDICAID ==
[2017-09-12 23:06] VITALS: BMI 29.8
[2017-09-12 23:23] VITALS: TEMP 98.3
[2017-09-13] MEDS ORDERED: Sodium Chloride 0.9% 1,000 ML IV STA (00:38)
[2017-09-13] MEDS ORDERED: Iohexol 240 (50 ml) PO ONE (00:38)
--- NOTE | 2017-09-13 01:09 | ED PDOC ---
HPI: Abdomen Time Seen by Provider: 09/13/17 00:23 Chief Complaint (Nursing): Abdominal Pain Chief Complaint (Provider): Abdominal Pain History Per: Patient History/Exam Limitations: no limitations Onset/Duration Of Symptoms: Hrs Location Of Pain/Discomfort: LLQ Quality Of Discomfort: Cramping Associated Symptoms: denies: Nausea, Vomiting Additional Complaint(s): 52 years old desolated male with history of anxiety and hypertension presents to the ED with complaints for abdominal pain associated with diarrhea that started tonight. Patient reports experiencing multiple episodes of diarrhea, urinary urgency and left lower quadrant cramping pain. He denies any nausea or vomiting. PMD: non provided Past Medical History Vital Signs: Last Vital Signs Temp 98.3 F 09/12/17 23:20 Pulse 80 09/13/17 05:13 Resp 16 09/13/17 05:13 BP 138/80 09/13/17 05:13 Pulse Ox 100 09/13/17 05:13 - Medical History PMH: Anxiety, Bipolar Disorder, COPD, Depression, HTN, Hypercholesterolemia, Post Traumatic Stress Disorder, Schizophrenia Denies: Diabetes, Hepatitis, HIV, Chronic Kidney Disease, Seizures, Sexually Transmitted Disease - Surgical History Surgical History: No Surg Hx - Family History Family History: States: Unknown Family Hx - Social History Current smoker - smoking cessation education provided: No Alcohol: None Drugs: Denies - Immunization History Hx Tetanus Toxoid Vaccination: No Hx Influenza Vaccination: Yes Hx Pneumococcal Vaccination: No - Home Medications Home Medications: Ambulatory Orders Medication Instructions Recorded amLODIPine [Norvasc] 5 mg PO DAILY #30 tab 07/10/17 Pantoprazole [Protonix EC Tab] 40 mg PO DAILY #10 tab 08/04/17 Prazosin HCl [Minipress] 2 mg PO HS #0 cap 08/12/17 QUEtiapine [SEROquel] 300 mg PO HS 30 Days #30 tab 08/12/17 buPROPion SR [Wellbutrin SR 150 MG] 150 mg PO DAILY 30 Days #30 tab 08/12/17 Mirtazapine [Remeron] 15 mg PO HS tab 09/04/17 Sertraline [Zoloft] 25 mg PO DAILY 09/09/17 Dicyclomine [Bentyl] 20 mg PO Q12 PRN #20 tab 09/13/17 - Allergies Allergies/Adverse Reactions: Allergies Allergy/AdvReac Type Severity Reaction Status Date / Time shrimp Allergy Mild SWELLING Verified 09/09/17 22:57 shellfish derived Allergy SWELLING Verified 09/09/17 22:57 Review of Systems ROS Statement: Except As Marked, All Systems Reviewed And Found Negative Gastrointestinal: Positive for: Abdominal Pain (LLQ cramping), Diarrhea. Negative for: Nausea, Vomiting Genitourinary Male: Positive for: Frequency (and urinary urgency) Physical Exam - Reviewed Nursing Documentation Reviewed: Yes Vital Signs Reviewed: Yes - Physical Exam Appears: Positive for: Non-toxic, No Acute Distress Head Exam: Positive for: ATRAUMATIC, NORMOCEPHALIC Skin: Positive for: Normal Color, Warm, Dry Eye Exam: Positive for: Normal appearance, EOMI, PERRL ENT: Positive for: Normal ENT Inspection Neck: Positive for: Normal, Painless ROM, Supple Cardiovascular/Chest: Positive for: Regular Rate, Rhythm. Negative for: Murmur Respiratory: Positive for: Normal Breath Sounds. Negative for: Respiratory Distress Gastrointestinal/Abdominal: Positive for: Tenderness (LLQ) Back: Positive for: Normal Inspection Extremity: Positive for: Normal ROM. Negative for: Pedal Edema, Deformity Neurologic/Psych: Positive for: Alert, Oriented - Laboratory Results Result Diagrams: 09/13/17 01:15 09/13/17 01:15 - ECG O2 Sat by Pulse Oximetry: 99 (RA) Pulse Ox Interpretation: Normal Medical Decision Making Medical Decision Making: Time: 27 Initial Impression: 52 years old male with LLQ tenderness and diarrhea. Initial Plan: --Abdomen/Pelvis CT --BMP --Urine Dipstick --CBC --Bentyl 20 mg PO --NaCl 1,000ml IV --Iohexol 50 ml PO --Urinalysis ____ Time: 440 CT Abdomen/ Pelvis FINDINGS: LUNG BASES: No significant abnormality seen. HEART: Heart appears mildly enlarged. ABDOMEN: LIVER: Scattered small low density liver lesions, most likely representing cysts. The largest of these measures 11 x 8 mm. GALLBLADDER AND BILE DUCTS: No CT evidence of acute cholecystitis. No evidence of significant biliary ductal dilatation. PANCREAS: No CT evidence of acute pancreatitis. SPLEEN: No acute abnormality of the spleen identified. ADRENALS: No acute abnormality of the adrenal glands identified. KIDNEYS AND URETERS: Low density lesion in the left kidney, most likely a cyst. This measures 1.3 cm maximally Faint, nonobstructing stones in the right kidney. No evidence of hydroureteronephrosis. STOMACH AND BOWEL: Best seen on image 62 of series 601, there is mild wall thickening involving the second and third portions of the duodenum, which could be due to mild duodenitis. No evidence of duodenal ulceration or perforation. Otherwise, no significant abnormality of the bowel is identified. No acute abnormality of the stomach is identified. No evidence of small bowel obstruction. PELVIS: APPENDIX: Appendix is seen, and is within normal limits in appearance. BLADDER: No acute abnormality of the bladder identified. REPRODUCTIVE: No acute abnormality of the reproductive organs is seen. ABDOMEN and PELVIS: INTRAPERITONEAL SPACE: No evidence of free intraperitoneal air or fluid. BONES/JOINTS: No acute fractures or other acute bony abnormality noted. SOFT TISSUES: Small umbilical hernia, containing only fat. VASCULATURE: No evidence of abdominal aortic aneurysm. No evidence of periaortic hemorrhage. LYMPH NODES: No evidence of diffuse lymphadenopathy. IMPRESSION: - Mild duodenal wall thickening, which could represent duodenitis. No evidence of duodenal ulceration or perforation. - Otherwise, no evidence of significant acute process. - See above for remaining findings. Dictated By: Karena Ray MD Dictated Date/Time: 09/13/17440 Signed By: Karena Ray MD Date Signed: 440 Transcribed By: TITO Transcribe Date/Time : 09/13/17440 [facility] Time: 0507 Labs reviewed and show no significant abnormality. Patient reports improvement of symptoms and is stable for discharge. Scribe Attestation: Documented by Dinora Arreguin, acting as a scribe for Terrance Lee MD. Provider Scribe Attestation: All medical record entries made by the Scribe were at my direction and personally dictated by me. I have reviewed the chart and agree that the record accurately reflects my personal performance of the history, physical exam, medical decision making, and the department course for this patient. I have also personally directed, reviewed, and agree with the discharge instructions and disposition. Disposition - Clinical Impression Clinical Impression: Gastroenteritis - Disposition Disposition: Routine/Home Disposition Time: 05:07 Condition: STABLE Prescriptions: Dicyclomine [Bentyl] 20 mg PO Q12 PRN #20 tab PRN Reason: abdominal pain/diarrhea Instructions: Gastroenteritis (ED) Forms: [facility] ([place])
[2017-09-13 01:18] LABS: BASO # 0.1 K/uL (0.0-0.2); BASO % 1.2 % (0.0-2.0); EOS # 0.1 K/uL (0.0-0.7); EOS % 1.7 % (0.0-4.0); HEMOGLOBIN 13.6 g/dL (12.0-18.0); LYMPH # 1.9 K/uL (1.0-4.3); LYMPH % 26.7 % (20.0-40.0); MEAN CELL VOLUME 86.1 fl (80.0-94.0); MEAN CORPUSCULAR HEMOGLOBIN 28.8 pg (27.0-31.0); MEAN CORPUSCULAR HGB CONC 33.5 g/dL (33.0-37.0); MEAN PLATELET VOLUME 7.9 fl (7.2-11.7); MONO # 0.6 K/uL (0.0-0.8); MONO % 8.5 % (0.0-10.0); NEUT # 4.3 K/uL (1.8-7.0); NEUT % 61.9 % (50.0-75.0); NRBC % 0.1 % (0.0-0.0); RBC 4.72 Mil/uL (4.40-5.90); RED CELL DISTRIBUTION WIDTH 15.9 % (11.5-14.5)
[2017-09-13 01:40] LABS: BLOOD UREA NITROGEN 19 mg/dl (9-20); CALCIUM 9.6 mg/dL (8.4-10.2); GFR AFRICAN-AMERICAN > 60; GFR NON-AFRICAN AMERICAN > 60
[2017-09-13 03:51] VITALS: RESP 16
[2017-09-13 03:58] LABS: SQUAMOUS EPITHIAL < 1 /hpf (0-5); URINE BILIRUBIN NEGATIVE (NEGATIVE); URINE BLOOD NEGATIVE (NEGATIVE); URINE CLARITY CLEAR (Clear); URINE COLOR YELLOW (YELLOW); URINE GLUCOSE (UA) NEG (Normal); URINE LEUKOCYTE ESTERASE NEG Leu/uL (Negative); URINE PROTEIN NEGATIVE (NEGATIVE); URINE UROBILINOGEN 0.2-1.0 mg/dL (0.2-1.0)
--- NOTE | 2017-09-13 04:41 | CT ---
EXAM: CT Abdomen and Pelvis With Intravenous Contrast EXAM DATE/TIME: 09/13/2017 12:38 AM CLINICAL HISTORY: 52 years old, male; Pain; Abdominal pain; Generalized; Patient HX: See phys doc; Additional info: Abd pain TECHNIQUE: Axial computed tomography images of the abdomen and pelvis with intravenous contrast. All CT scans at this facility use one or more dose reduction techniques, viz.: automated exposure control; ma/kV adjustment per patient size (including targeted exams where dose is matched to indication; i.e. head); or iterative reconstruction technique. Coronal and sagittal reformatted images were created and reviewed. CONTRAST: 50 mL of OMNI 240 administered intravenously. COMPARISON: Prior CT abdomen and pelvis of 2017-01-17 FINDINGS: LUNG BASES: No significant abnormality seen. HEART: Heart appears mildly enlarged. ABDOMEN: LIVER: Scattered small low density liver lesions, most likely representing cysts. The largest of these measures 11 x 8 mm. GALLBLADDER AND BILE DUCTS: No CT evidence of acute cholecystitis. No evidence of significant biliary ductal dilatation. PANCREAS: No CT evidence of acute pancreatitis. SPLEEN: No acute abnormality of the spleen identified. ADRENALS: No acute abnormality of the adrenal glands identified. KIDNEYS AND URETERS: Low density lesion in the left kidney, most likely a cyst. This measures 1.3 cm maximally Faint, nonobstructing stones in the right kidney. No evidence of hydroureteronephrosis. STOMACH AND BOWEL: Best seen on image 62 of series 601, there is mild wall thickening involving the second and third portions of the duodenum, which could be due to mild duodenitis. No evidence of duodenal ulceration or perforation. Otherwise, no significant abnormality of the bowel is identified. No acute abnormality of the stomach is identified. No evidence of small bowel obstruction. PELVIS: APPENDIX: Appendix is seen, and is within normal limits in appearance. BLADDER: No acute abnormality of the bladder identified. REPRODUCTIVE: No acute abnormality of the reproductive organs is seen. ABDOMEN and PELVIS: INTRAPERITONEAL SPACE: No evidence of free intraperitoneal air or fluid. BONES/JOINTS: No acute fractures or other acute bony abnormality noted. SOFT TISSUES: Small umbilical hernia, containing only fat. VASCULATURE: No evidence of abdominal aortic aneurysm. No evidence of periaortic hemorrhage. LYMPH NODES: No evidence of diffuse lymphadenopathy. IMPRESSION: - Mild duodenal wall thickening, which could represent duodenitis. No evidence of duodenal ulceration or perforation. - Otherwise, no evidence of significant acute process. - See above for remaining findings.
[2017-09-13 05:14] VITALS: BP 138/80; PULSE 80
[2017-09-14 03:49] VITALS: O2SAT 99
== END 2017-09-13 05:16 | disposition home or self-care (01) ==
LOC: H.ER 23:06
DX: K52.9 Noninfective gastroenteritis and colitis, unspecified (principal); E78.00 Pure hypercholesterolemia, unspecified; F20.9 Schizophrenia, unspecified; F31.9 Bipolar disorder, unspecified; F43.10 Post-traumatic stress disorder, unspecified; I10 Essential (primary) hypertension; K76.9 Liver disease, unspecified
CPT/HCPCS: 74176; 80048; 81003; 85025; 96361; 96374; 99283; J1885; J7040; Q9966

== ENCOUNTER 2017-09-16 00:57 | Emergency (ER) | payer MEDICAID ==
[2017-09-16 00:57] VITALS: BMI 29.8
[2017-09-16 01:38] VITALS: BP 149/90; PULSE 79; RESP 18; TEMP 98.1; O2SAT 100
[2017-09-16] MEDS ORDERED: Naproxen 500 MG TAB PO STA (02:10)
[2017-09-16] MEDS ORDERED: Naproxen 500 MG TAB PO ONE (02:13)
--- NOTE | 2017-09-16 02:29 | ED PDOC ---
Lower Extremity Pain/Injury Time Seen by Provider: 09/16/17 01:32 Chief Complaint (Nursing): Lower Extremity Problem/Injury History Per: Patient History/Exam Limitations: no limitations Onset/Duration Of Symptoms: Hrs Additional Complaint(s): Hx of HTN, PTSD, Anxiety, Depression, chronic SOB presenting with bilateral lower extremity swelling, states that for one day his ankles have been swollen but not his legs. States his SOB is chronic and not worse than usual. Denies chest pain. Also complaining of atraumatic R knee pain x 2 weeks. No fevers, cough, chills. Past Medical History Reviewed: Historical Data, Nursing Documentation, Vital Signs Vital Signs: Last Vital Signs Temp 98.1 F 09/16/17 01:34 Pulse 79 09/16/17 01:34 Resp 18 09/16/17 01:34 BP 149/90 09/16/17 01:34 Pulse Ox 100 09/16/17 01:34 - Medical History PMH: Anxiety, Bipolar Disorder, COPD, Depression, HTN, Hypercholesterolemia, Post Traumatic Stress Disorder, Schizophrenia Denies: Diabetes, Hepatitis, HIV, Chronic Kidney Disease, Seizures, Sexually Transmitted Disease - Family History Family History: States: Unknown Family Hx - Immunization History Hx Tetanus Toxoid Vaccination: No Hx Influenza Vaccination: Yes Hx Pneumococcal Vaccination: No - Home Medications Home Medications: Ambulatory Orders Medication Instructions Recorded amLODIPine [Norvasc] 5 mg PO DAILY #30 tab 07/10/17 Pantoprazole [Protonix EC Tab] 40 mg PO DAILY #10 tab 08/04/17 Prazosin HCl [Minipress] 2 mg PO HS #0 cap 08/12/17 QUEtiapine [SEROquel] 300 mg PO HS 30 Days #30 tab 08/12/17 buPROPion SR [Wellbutrin SR 150 MG] 150 mg PO DAILY 30 Days #30 tab 08/12/17 Mirtazapine [Remeron] 15 mg PO HS tab 09/04/17 Sertraline [Zoloft] 25 mg PO DAILY 09/09/17 Dicyclomine [Bentyl] 20 mg PO Q12 PRN #20 tab 09/13/17 Naproxen [Naprosyn] 500 mg PO BID #30 tablet 09/16/17 - Allergies Allergies/Adverse Reactions: Allergies Allergy/AdvReac Type Severity Reaction Status Date / Time shrimp Allergy Mild SWELLING Verified 09/16/17 01:33 shellfish derived Allergy SWELLING Verified 09/16/17 01:33 Wells Criteria for PE - Wells Criteria for Pulmonary Embolism Clinical Signs and Symptoms of DVT: No P.E is #1 Diagnosis, or Equally Likely: No Heart Rate >100: No Immobilization at least 3 days;Surgery previous 4 weeks: No Previous, objectively diagnosed PE or DVT: No Hemoptysis: No Malignancy w/treatment within 6 months, or palliative: No Total Score: 0 Review of Systems ROS Statement: Except As Marked, All Systems Reviewed And Found Negative Physical Exam - Reviewed Nursing Documentation Reviewed: Yes Vital Signs Reviewed: Yes - Physical Exam Appears: Positive for: Well, Non-toxic, No Acute Distress Head Exam: Positive for: ATRAUMATIC, NORMAL INSPECTION, NORMOCEPHALIC Skin: Positive for: Normal Color, Warm, DRY Eye Exam: Positive for: EOMI, Normal appearance, PERRL ENT: Positive for: Normal ENT Inspection Neck: Positive for: Normal, Painless ROM Cardiovascular/Chest: Positive for: Regular Rate, Rhythm Respiratory: Positive for: CNT, Normal Breath Sounds Gastrointestinal/Abdominal: Positive for: Normal Exam, Soft Back: Positive for: Normal Inspection Extremity: Positive for: Normal ROM Neurologic/Psych: Positive for: Alert, Oriented - ECG O2 Sat by Pulse Oximetry: 100 Pulse Ox Interpretation: Normal Medical Decision Making Medical Decision MakinAM A/P: Patient presenting with LE swelling -exam completely benign, no edema/swelling appreciated on exam -R knee xray unremarkable -advised patient to f/u in podiatry clinic and to sleep with legs elevated -patient suitable for outpatient f/u Disposition - Clinical Impression Clinical Impression: Knee pain - Patient ED Disposition Is Patient to be Admitted: No - Disposition Referrals: Podiatry Clinic [Outside] Disposition: Routine/Home Disposition Time: :33 Condition: STABLE Prescriptions: Naproxen [Naprosyn] 500 mg PO BID #30 tablet Instructions: Joint Pain
--- NOTE | 2017-09-16 05:04 | RAD ---
EXAM: XR Right Knee, 3 views CLINICAL HISTORY: 52 years old, male; Pain; Knee; Right; Additional info: Knee pain TECHNIQUE: Three views of the right knee. COMPARISON: No relevant prior studies available. FINDINGS: Bones/joints: No acute fracture. Early tricompartment osteoarthritis. No dislocation. No significant joint effusion. Mild enthesopathy. Soft tissues: Unremarkable. IMPRESSION: 1. No fracture. 2. If pain persists, suggest MRI to evaluate for occult fracture/internal arrangement. 3. Incidental/non-acute findings are described above.
== END 2017-09-16 06:00 | disposition home or self-care (01) ==
LOC: H.ER 00:57
DX: M25.561 Pain in right knee (principal); Z86.59 Personal history of other mental and behavioral disorders; I10 Essential (primary) hypertension; J44.9 Chronic obstructive pulmonary disease, unspecified; E78.00 Pure hypercholesterolemia, unspecified

== ENCOUNTER 2017-09-16 23:50 | Emergency (ER) | payer MEDICAID ==
[2017-09-16 23:51] VITALS: BMI 29.8
[2017-09-17 00:01] VITALS: BP 158/85; PULSE 73; RESP 16; TEMP 98; O2SAT 99
--- NOTE | 2017-09-17 00:50 | ED PDOC ---
HPI: Abdomen Time Seen by Provider: 09/16/17 23:54 Chief Complaint (Nursing): GI Problem History Per: Patient History/Exam Limitations: no limitations Onset/Duration Of Symptoms: Mins Severity: None Additional Complaint(s): Homeless male with frequent ED visits signed up to be evaluated for nausea after being asked to leave waiting room by security. Patient states he vomited 4 times while in ED waiting room for 6 hours, however no staff members witnessed this. Patient was in ER this week for abdominal pain and had negative workup, was given bentyl upon discharge which he has not been taking. States he has mild abdominal pain when vomiting and loose stools. No fevers, chills, chest pain, or shortness of breath. Past Medical History Vital Signs: Last Vital Signs Temp 98 F 09/16/17 23:59 Pulse 73 09/16/17 23:59 Resp 16 09/16/17 23:59 BP 158/85 H 09/16/17 23:59 Pulse Ox 99 09/17/17 00:50 - Medical History PMH: Anxiety, Bipolar Disorder, COPD, Depression, HTN, Hypercholesterolemia, Post Traumatic Stress Disorder, Schizophrenia Denies: Diabetes, Hepatitis, HIV, Chronic Kidney Disease, Seizures, Sexually Transmitted Disease - Family History Family History: States: Unknown Family Hx - Immunization History Hx Tetanus Toxoid Vaccination: No Hx Influenza Vaccination: Yes Hx Pneumococcal Vaccination: No - Home Medications Home Medications: Ambulatory Orders Medication Instructions Recorded amLODIPine [Norvasc] 5 mg PO DAILY #30 tab 07/10/17 Pantoprazole [Protonix EC Tab] 40 mg PO DAILY #10 tab 08/04/17 Prazosin HCl [Minipress] 2 mg PO HS #0 cap 08/12/17 QUEtiapine [SEROquel] 300 mg PO HS 30 Days #30 tab 08/12/17 buPROPion SR [Wellbutrin SR 150 MG] 150 mg PO DAILY 30 Days #30 tab 08/12/17 Mirtazapine [Remeron] 15 mg PO HS tab 09/04/17 Sertraline [Zoloft] 25 mg PO DAILY 09/09/17 Dicyclomine [Bentyl] 20 mg PO Q12 PRN #20 tab 09/13/17 Naproxen [Naprosyn] 500 mg PO BID #30 tablet 09/16/17 - Allergies Allergies/Adverse Reactions: Allergies Allergy/AdvReac Type Severity Reaction Status Date / Time shrimp Allergy Mild SWELLING Verified 09/16/17 23:57 shellfish derived Allergy SWELLING Verified 09/16/17 23:57 Review of Systems ROS Statement: Except As Marked, All Systems Reviewed And Found Negative Gastrointestinal: Positive for: Nausea, Vomiting, Abdominal Pain, Diarrhea Physical Exam - Reviewed Nursing Documentation Reviewed: Yes Vital Signs Reviewed: Yes - Physical Exam Appears: Positive for: Well, Non-toxic, No Acute Distress Head Exam: Positive for: ATRAUMATIC, NORMAL INSPECTION, NORMOCEPHALIC Skin: Positive for: Normal Color, Warm, DRY Eye Exam: Positive for: EOMI, Normal appearance, PERRL ENT: Positive for: Normal ENT Inspection Neck: Positive for: Normal, Painless ROM Cardiovascular/Chest: Positive for: Regular Rate, Rhythm Respiratory: Positive for: CNT, Normal Breath Sounds Gastrointestinal/Abdominal: Positive for: Normal Exam, Soft Back: Positive for: Normal Inspection Extremity: Positive for: Normal ROM Neurologic/Psych: Positive for: Alert, Oriented - ECG O2 Sat by Pulse Oximetry: 99 Pulse Ox Interpretation: Normal Medical Decision Making Medical Decision Making: Patient presenting with nausea after being told to leave ER. Patient does not have an acute medical condition that requires emergent ER intervention, will give zofran, po challenge, and d/c home. Disposition - Clinical Impression Clinical Impression: Nausea, Malingering - Patient ED Disposition Is Patient to be Admitted: No - Disposition Referrals: [facility] [Outside] Disposition: Routine/Home Disposition Time: 00:58 Condition: STABLE Instructions: Nausea and Vomiting, Adult (DC) Forms: [employer] (Citizen Of [place])
== END 2017-09-17 01:30 | disposition home or self-care (01) ==
LOC: H.ER 23:50
DX: R11.0 Nausea (principal); Z76.5 Malingerer [conscious simulation]; Z86.59 Personal history of other mental and behavioral disorders; F43.10 Post-traumatic stress disorder, unspecified; I10 Essential (primary) hypertension; J44.9 Chronic obstructive pulmonary disease, unspecified; E78.00 Pure hypercholesterolemia, unspecified

== ENCOUNTER 2017-09-24 09:12 | Inpatient (IN) | payer MEDICAID ==
[2017-09-24 09:12] VITALS: BMI 29.8
[2017-09-24 09:20] VITALS: O2SAT 100
[2017-09-24 09:53] LABS: BASO % 0.8 % (0.0-2.0); EOS # 0.1 K/uL (0.0-0.7); HEMOGLOBIN 12.9 g/dL (12.0-18.0); LYMPH # 1.8 K/uL (1.0-4.3); LYMPH % 29.8 % (20.0-40.0); MEAN CORPUSCULAR HGB CONC 34.2 g/dL (33.0-37.0); MEAN PLATELET VOLUME 7.7 fl (7.2-11.7); MONO # 0.5 K/uL (0.0-0.8); MONO % 8.3 % (0.0-10.0); NEUT # 3.6 K/uL (1.8-7.0); NEUT % 59.1 % (50.0-75.0); NRBC % 0.1 % (0.0-0.0); RBC 4.44 Mil/uL (4.40-5.90); WHITE BLOOD COUNT 6.2 K/uL (4.8-10.8)
--- NOTE | 2017-09-24 09:57 | ED PDOC ---
HPI: Psych/Substance Abuse Time Seen by Provider: 09/24/17 09:24 Chief Complaint (Nursing): Psychiatric Evaluation Chief Complaint (Provider): Psychiatric Evaluation History Per: Patient History/Exam Limitations: no limitations Onset/Duration Of Symptoms: Hrs Current Symptoms Are (Timing): Still Present Associated Symptoms: Depression, Suicidal Thoughts, Suicidal Plan Additional Complaint(s): 52 y/o male with a history of depression and HTN presents to the ED psychiatric evaluation. Patient states he feels depressed because of of family members and wants to kill himself. His suicidal plan is to "shoot himself in the head". PMD: none provided Past Medical History Reviewed: Historical Data, Nursing Documentation, Vital Signs Vital Signs: Last Vital Signs Temp 98.4 F 09/24/17 09:19 Pulse 76 09/24/17 09:19 Resp 16 09/24/17 09:19 BP 159/100 H 09/24/17 09:19 Pulse Ox 100 09/24/17 09:19 - Medical History PMH: Anxiety, Bipolar Disorder, COPD, Depression, HTN, Hypercholesterolemia, Post Traumatic Stress Disorder, Schizophrenia Denies: Diabetes, Hepatitis, HIV, Chronic Kidney Disease, Seizures, Sexually Transmitted Disease - Surgical History Surgical History: No Surg Hx - Family History Family History: States: Unknown Family Hx - Social History Current smoker - smoking cessation education provided: No Ex-Smoker (has not smoked in the last 12 months): No Alcohol: None Drugs: Denies - Immunization History Hx Tetanus Toxoid Vaccination: No Hx Influenza Vaccination: Yes Hx Pneumococcal Vaccination: No - Home Medications Home Medications: Ambulatory Orders Medication Instructions Recorded amLODIPine [Norvasc] 5 mg PO DAILY #30 tab 07/10/17 Prazosin HCl [Minipress] 2 mg PO HS #0 cap 08/12/17 QUEtiapine [SEROquel] 300 mg PO HS 30 Days #30 tab 08/12/17 buPROPion SR [Wellbutrin SR 150 MG] 150 mg PO DAILY 30 Days #30 tab 08/12/17 Mirtazapine [Remeron] 15 mg PO HS tab 09/04/17 Sertraline [Zoloft] 25 mg PO DAILY 09/09/17 - Allergies Allergies/Adverse Reactions: Allergies Allergy/AdvReac Type Severity Reaction Status Date / Time shrimp Allergy Mild SWELLING Verified 09/16/17 23:57 shellfish derived Allergy SWELLING Verified 09/16/17 23:57 Review of Systems ROS Statement: Except As Marked, All Systems Reviewed And Found Negative Psych: Positive for: Depression, Suicidal ideation, Other (suicidal plan to shoot himself in the head) Physical Exam - Reviewed Nursing Documentation Reviewed: Yes Vital Signs Reviewed: Yes - Physical Exam Appears: Positive for: Non-toxic, No Acute Distress Head Exam: Positive for: ATRAUMATIC, NORMOCEPHALIC Skin: Positive for: Normal Color, Warm, Dry Eye Exam: Positive for: EOMI, Normal appearance, PERRL Cardiovascular/Chest: Positive for: Regular Rate, Rhythm. Negative for: Murmur Respiratory: Positive for: Normal Breath Sounds. Negative for: Respiratory Distress Gastrointestinal/Abdominal: Positive for: Normal Exam, Soft. Negative for: Tenderness Extremity: Positive for: Normal ROM Neurologic/Psych: Positive for: Alert, Oriented (x3) - Laboratory Results Result Diagrams: 09/24/17 09:46 09/24/17 09:46 - ECG O2 Sat by Pulse Oximetry: 100 (RA) Pulse Ox Interpretation: Normal Medical Decision Making Medical Decision Making: Time: 09:19 Initial Plan: * crisis evaluation * EKG * Alcohol Serum Test * CMP * Drug Screen * Chest X-Ray * 1:1 Observation Scribe Attestation: Documented by Brandee Duron acting as a scribe for Unique Tee MD. EKG compared to EKG 09/10/2017 with no significant changes Medically stable for psychiatric admission MD Nolan Attestation: All medical record entries made by the Scribe were at my direction and personally dictated by me. I have reviewed the chart and agree that the record accurately reflects my personal performance of the history, physical exam, medical decision making, and the department course for this patient. I have also personally directed, reviewed, and agree with the discharge instructions and disposition. Disposition - Clinical Impression Clinical Impression: Depression - Patient ED Disposition Is Patient to be Admitted: Yes - Disposition Disposition Time: 10:42 Condition: FAIR Forms: Nextance (Maltese) - Pt Status Changed To: Hospital Disposition Of: Inpatient - Admit Certification Admit to Inpatient:: After my assessment, the patient will require hospitalization for at least two midnights. This is because of the severity of symptoms shown, intensity of services needed, and/or the medical risk in this patient being treated as an outpatient. - POA Present On Arrival: None
[2017-09-24 10:07] LABS: ALB/GLOB RATIO 1.2 (1.0-2.1); ALBUMIN 3.9 g/dL (3.5-5.0); ALT/SGPT 51 U/L (21-72); AST/SGOT 35 U/L (17-59); BLOOD UREA NITROGEN 18 mg/dl (9-20); CALCIUM 8.9 mg/dL (8.4-10.2); GFR AFRICAN-AMERICAN > 60; GFR NON-AFRICAN AMERICAN > 60
[2017-09-24 10:08] LABS: BARBITURATES, UR NEGATIVE (NEGATIVE); BENZODIAZEPINES, UR NEGATIVE (NEGATIVE); OPIATES, UR NEGATIVE (NEGATIVE); PHENCYCLIDINE, UR NEGATIVE (NEGATIVE)
--- NOTE | 2017-09-24 10:33 | RAD ---
HISTORY: cough COMPARISON: Frontal chest radiograph 09/03/2017. FINDINGS: LUNGS: No active pulmonary disease. PLEURA: No significant pleural effusion identified, no pneumothorax apparent. CARDIOVASCULAR: Stable cardiac silhouette. No pulmonary vascular congestion evident. OSSEOUS STRUCTURES: No significant abnormalities. VISUALIZED UPPER ABDOMEN: Normal. OTHER FINDINGS: None. IMPRESSION: No interval acute cardiopulmonary disease appreciated. Upper limits normal cardiac silhouette stable.
--- NOTE | 2017-09-24 17:09 | CARD ---
APPROVED REPORT EKG Measurement Heart [id number] <Conclusion> Normal sinus rhythm Possible Left atrial enlargement T wave abnormality, consider inferior ischemia Abnormal ECG
[2017-09-24] MEDS ORDERED: Magnesium Hydroxide Susp 30 ml UD PO PRN (17:55)
[2017-09-24] MEDS ORDERED: DiphenhydrAMINE 50 mg/ml Inj IM PRN (17:55)
[2017-09-24] MEDS ORDERED: Alum-Mag Hydrox-Simethicone Susp (30 mL) PO PRN (17:55)
--- NOTE | 2017-09-24 18:28 | CP.PCM.CON ---
History of Present Illness - History of Present Illness History of Present Illness: 52 year old male with past medical history of hyperlipidemia, hypertension, Bipolar disorder, schizophrenia, PTSD, anxiety , COPD presented to the ED for crisis eval for suicidal ideation , wanting to kill himself Patient admitted to psych unit for depression . Medicine consult called for evaluation. He is feeling depressed but denies any hallucinations.Has extensive psych history with multiple admissions and prior suicidal attempts. He is not compliant with his psych meds , stopped taking them 1 month ago. Denies any chest pain , SOB, palpitations, PND , orthopnea, urinary symptoms. Has chronic constipation . denies any weight loss or weight gain Allergies ; shrimp , shellfish PMH: dyslipidemia, HTN( not compliant with medications) , bipolar , schizophrenia, PTSD Medications; Not compliant Surgery ;none Family history ; none Social history :Lives in [place] with girlfriend, smokes 3 cig/day, denies drinking , cocaine and marijuana use ( last use 4 days ago )has 1 son, works in [employer]D: goes to [facility] ; 10 point review of system negative except above Review of Systems - Review of Systems All systems: reviewed and no additional remarkable complaints except Past Patient History - Infectious Disease Hx of Infectious Diseases: None - Past Medical History & Family History Past Medical History?: Yes - Past Social History Smoking Status: Current Some Days Smoker Alcohol: None Drugs: Cannabis, Cocaine Home Situation {Lives}: Friends - CARDIAC Hx Cardiac Disorders: Yes (HTN,HLD) - PULMONARY Hx Respiratory Disorders: Yes (COPD) - NEUROLOGICAL Hx Neurological Disorder: No - HEENT Hx HEENT Problems: No - RENAL Hx Chronic Kidney Disease: No - ENDOCRINE/METABOLIC Hx Endocrine Disorders: No - HEMATOLOGICAL/ONCOLOGICAL Hx Blood Disorders: No - INTEGUMENTARY Hx Dermatological Problems: No - MUSCULOSKELETAL/RHEUMATOLOGICAL Hx Musculoskeletal Disorders: No - GASTROINTESTINAL Hx Gastrointestinal Disorders: No - GENITOURINARY/GYNECOLOGICAL Hx Genitourinary Disorders: No - PSYCHIATRIC Hx Psychophysiologic Disorder: Yes (ANX,DEPRESSION,SCHIZO) - SURGICAL HISTORY Hx Surgeries: No - ANESTHESIA Hx Anesthesia: No Hx Anesthesia Reactions: No Hx Malignant Hyperthermia: No Meds Allergies/Adverse Reactions: Allergies Allergy/AdvReac Type Severity Reaction Status Date / Time shrimp Allergy Mild SWELLING Verified 09/16/17 23:57 shellfish derived Allergy SWELLING Verified 09/16/17 23:57 - Medications Medications: Current Medications Acetaminophen (Tylenol 325mg Tab) 650 mg PO Q4 PRN PRN Reason: Pain, Mild (1-3) Al Hydrox/Mg Hydrox/Simethicone (Maalox Plus 30 Ml) 30 ml PO Q4 PRN PRN Reason: Dyspepsia Amlodipine Besylate (Norvasc) 5 mg PO DAILY ALIS Amlodipine Besylate (Norvasc) 5 mg PO ONCE ONE Stop: 09/24/17 18:24 Diphenhydramine HCl (Benadryl) 50 mg IM Q6 PRN PRN Reason: Extrapyramidal S/S Unable PO Diphenhydramine HCl (Benadryl) 50 mg PO Q6 PRN PRN Reason: Dystonic reaction/EPS Diphenhydramine HCl (Benadryl) 50 mg PO HS PRN PRN Reason: Sleep Haloperidol (Haldol) 5 mg PO Q4 PRN PRN Reason: Agitation Haloperidol Lactate (Haldol) 5 mg IM Q4 PRN PRN Reason: Agitation, Unable to Take PO Lorazepam (Ativan) 2 mg IM Q4 PRN PRN Reason: Anxiety/Agitation,Unable PO Lorazepam (Ativan) 2 mg PO Q4 PRN PRN Reason: Anxiety Magnesium Hydroxide (Milk Of Magnesia) 30 ml PO HS PRN PRN Reason: Constipation Mirtazapine (Remeron) 15 mg PO HS ALIS Quetiapine Fumarate (Seroquel) 100 mg PO HS ALIS Physical Exam - Constitutional Appears: Non-toxic, No Acute Distress - Head Exam Head Exam: ATRAUMATIC, NORMAL INSPECTION, NORMOCEPHALIC - Eye Exam Eye Exam: EOMI, Normal appearance, PERRL Pupil Exam: NORMAL ACCOMODATION - ENT Exam ENT Exam: Mucous Membranes Moist, Normal Exam - Neck Exam Neck exam: Positive for: Full Rom, Normal Inspection - Respiratory Exam Respiratory Exam: Clear to Auscultation Bilateral, NORMAL BREATHING PATTERN. absent: Rales, Rhonchi, Wheezes - Cardiovascular Exam Cardiovascular Exam: REGULAR RHYTHM, RRR, +S1, +S2. absent: JVD - GI/Abdominal Exam GI & Abdominal Exam: Normal Bowel Sounds, Soft. absent: Distended, Guarding, Rebound, Tenderness - Rectal Exam Rectal Exam: Deferred - Extremities Exam Extremities exam: Positive for: normal capillary refill, normal inspection, pedal pulses present. Negative for: calf tenderness, pedal edema - Back Exam Back exam: NORMAL INSPECTION - Neurological Exam Neurological exam: Alert, CN II-XII Intact, Oriented x3, Reflexes Normal - Psychiatric Exam Psychiatric exam: Anxious, Depressed, Flat Affect - Skin Skin Exam: Dry, Intact, Normal Color, Warm Results - Vital Signs Recent Vital Signs: Last Vital Signs Temp 98.5 F 09/24/17 15:54 Pulse 71 09/24/17 15:54 Resp 19 09/24/17 15:54 BP 144/94 H 09/24/17 15:54 Pulse Ox 100 09/24/17 15:54 - Labs Result Diagrams: 09/24/17 09:46 09/24/17 09:46 Labs: Laboratory Results - last 24 hr 09/24/17 09/24/17 09/24/17 09:40 09:46 09:46 WBC 6.2 RBC 4.44 Hgb 12.9 Hct 37.8 MCV 85.0 MCH 29.0 MCHC 34.2 RDW 15.0 H Plt Count 260 MPV 7.7 Neut % (Auto) 59.1 Lymph % (Auto) 29.8 [place] % (Auto) 8.3 Eos % (Auto) 2.0 Baso % (Auto) 0.8 Neut # (Auto) 3.6 Lymph # (Auto) 1.8 [place] # (Auto) 0.5 Eos # (Auto) 0.1 Baso # (Auto) 0.0 Sodium 145 Potassium 4.0 Chloride 107 Carbon Dioxide 24 Anion Gap 18 BUN 18 Creatinine 0.9 Est GFR ( Amer) > 60 Est GFR (Non-Af Amer) > 60 Random Glucose 83 Calcium 8.9 Total Bilirubin 0.5 AST 35 ALT 51 Alkaline Phosphatase 75 Total Protein 7.1 Albumin 3.9 Globulin 3.2 Albumin/Globulin Ratio 1.2 Urine Opiates Screen Negative Urine Methadone Screen Negative Ur Barbiturates Screen Negative Ur Phencyclidine Scrn Negative Ur Amphetamines Screen Negative U Benzodiazepines Scrn Negative U Oth Cocaine Metabols Positive H U Cannabinoids Screen Positive H Alcohol, Quantitative 21 H Assessment & Plan - Assessment and Plan (Free Text) Assessment: 52 year old male with past medical history of hyperlipidemia, hypertension, Bipolar disorder, schizophrenia, PTSD, anxiety presented to the ED for crisis eval for suicidal ideation , wanting to kill himself Patient admitted to psych unit for depression . Medicine consult called for evaluation. He is feeling depressed but denies any hallucinations.Has extensive psych history with multiple admissions and prior suicidal attempts. He is not compliant with his psych meds , stopped taking them 1 month ago. Denies any chest pain , SOB, palpitations, PND , orthopnea, urinary symptoms. Has chronic constipation . denies any weight loss or weight gain 1. Depression/Bipolar management as per psych 2. Polysubstance abuse( cocaine , marijuana, ETOH ) 3.Hypertension restarted on Norvasc 5 mg po daily monitor closely check lipid profile
--- NOTE | 2017-09-24 18:48 | PCM.BM ---
<Bryn Pedraza - Last Filed: 09/24/17 18:46> Treatment Plan Problems - Problems identified on initial assessmt Hopelessness/Helplessness Date Initiated: 09/24/17 Time Initiated: 18:15 Assessment reference: NA Status: Active Treatment assets and liabiliti Patient Assests: adapts well, cooperative, motivated, self-reliant, ADL independent, physically healthy, negotiates basic needs, cognitively intact, good interpersonal skills Patient Liabilities: live alone - Milieu Protocol Maintain good personal hygiene: daily Encourage regular showers, every shift Remind patient to perform daily oral care, every shift Assist patient to perform ADL's Maintain personal safety: every shift Educate patient to report safety concerns to staff, every shift Monitor environment for contraband/sharps Medication safety: Monitor for expected outcome, potential side effects: every shift, Assess barriers to learning: every shift, Assess readiness for medication education: every shift <Brandyn Franco - Last Filed: 09/26/17 11:24> - Diagnosis (1) Depression Status: Acute
--- NOTE | 2017-09-25 11:45 | PCM.PSYCH ---
Initial Psychiatric Evaluation - Initial Psychiatric Evaluation Type of Admission: Voluntary Legal Status: Capacity Chief Complaint (in patient's own words): I am very depressed Patient's Reaction to Hospitalization: pt requested help History of Present Illness and Precipitating Events: pt is 52ys old male with previous diagnosis of bipolar disorder. cocaine and cannabis use disorder, pt recently discharged AMA , questionable compliance with medications and follow up, pt reported has been increasingly depressed due to financial difficulties , unstable living situation , with he started feeling very lonely and down, experienced suicidal ideation with plan to shoot himself with a gun , came to ER seeking help pt on the unit reporting feeling hopeless and helpless, passive suicidal ideation without active plan on the unit, reported non command auditory hallucinations putting him down, denied manic symptoms, pt relapsed on cocaine and cannabis, last use yesterday Current Medications: Active Medications Generic Name Dose Route Start Last Admin Trade Name Freq PRN Reason Stop Dose Admin Acetaminophen 650 mg 09/24/17 17:55 Tylenol 325mg Tab PO Q4 PRN Pain, Mild (1-3) Al Hydrox/Mg Hydrox/Simethicone 30 ml 09/24/17 17:55 Maalox Plus 30 Ml PO Q4 PRN Dyspepsia Amlodipine Besylate 5 mg 09/25/17 09:00 Norvasc PO DAILY ALIS Diphenhydramine HCl 50 mg 09/24/17 17:55 Benadryl IM Q6 PRN Extrapyramidal S/S Unable PO Diphenhydramine HCl 50 mg 09/24/17 18:04 Benadryl PO Q6 PRN Dystonic reaction/EPS Diphenhydramine HCl 50 mg 09/24/17 18:05 Benadryl PO HS PRN Sleep Haloperidol 5 mg 09/24/17 17:55 Haldol PO Q4 PRN Agitation Haloperidol Lactate 5 mg 09/24/17 17:55 Haldol IM Q4 PRN Agitation, Unable to Take PO Lorazepam 2 mg 09/24/17 17:55 Ativan IM Q4 PRN Anxiety/Agitation,Unable PO Lorazepam 2 mg 09/24/17 18:03 Ativan PO Q4 PRN Anxiety Magnesium Hydroxide 30 ml 09/24/17 17:55 Milk Of Magnesia PO HS PRN Constipation Mirtazapine 15 mg 09/24/17 22:00 09/24/17 21:32 Remeron PO 15 mg HS ALIS Administration Quetiapine Fumarate 100 mg 09/24/17 22:00 09/24/17 21:31 Seroquel PO 100 mg HS ALIS Administration Past Psychiatric History - Past Psychiatric History Explanation of prior treatment: multiple inpatient hospitalizations, history of non compliance History of ETOH/Drug Use: hx of cocaine and cannabis use Pertinent Medical Hx (Current Medical&Sleep Prob, Allergies): Allergies Allergy/AdvReac Type Severity Reaction Status Date / Time shrimp Allergy Mild SWELLING Verified 09/16/17 23:57 shellfish derived Allergy SWELLING Verified 09/16/17 23:57 amLODIPine [Norvasc] 5 mg PO DAILY #30 tab 07/10/17 Prazosin HCl [Minipress] 2 mg PO HS #0 cap 08/12/17 QUEtiapine [SEROquel] 300 mg PO HS 30 Days #30 tab 08/12/17 buPROPion SR [Wellbutrin SR 150 MG] 150 mg PO DAILY 30 Days #30 tab 08/12/17 Mirtazapine [Remeron] 15 mg PO HS tab 09/04/17 Sertraline [Zoloft] 25 mg PO DAILY 09/09/17 Mental Status Examination - Personal Presentation Personal Presentation: Looks stated age - Affect Affect: Constricted, Depressed - Motor Activity Motor Activity: Psychomotor Retardation - Reliability in Providing Information Reliability in Providing Information: Poor, due to alteration in thoughts, Poor , due to altered mood - Speech Speech: Relevant - Mood Mood: Depressed, Anxious - Formal Thought Process Formal Thought Process: Circumstantial - Hallucinations/Delusions Hallucinations: Auditory Additional comments: non command auditory hallucinations - Obsessions/Compulsions Obsessions: No Compulsions: No - Cognitive Functions Orientation: Person, Place Sensorium: Alert Judgement: Imparied, as evidence by: Poor judgement, Imparied, as evidence by: Lack of insight into illness - Risk Risk: Diminished functioning - Strength & Assets Inventory Strength & Assets Inventory: Life experience - Limitations Additional comments: poor compliance DSM 5 DX - DSM 5 DSM 5 Diagnosis: bipolar disorder MRE depressed cocaine use disorder cannabis use disorder - Recommended/Plan of Treatment Treatment Recommendations and Plan of Treatment: start seroquel 100mg qhs , up titrate gradualy remeron 15mg qhs neurontin 100mg tid motivational , group and supportive therapy
[2017-09-25 16:47] VITALS: RESP 20
[2017-09-26 09:13] VITALS: BP 137/85; PULSE 111; TEMP 97.7
--- NOTE | 2017-09-26 12:26 | PCM.PYCHDC ---
Mental Status Examination - Mental Status Examination Orientation: Person, Place, Situation Memory: Intact Mood: Neutral Affect: Broad Speech: Appropriate Attention: WNL Concentration: WNL Association: WNL Fund of Knowledge: WNL Formal Thought Process: Circumstantial Description of patient's judgement and insight: partial insight, poor judgment Psychotic Thoughts and Behaviors: pt denied perceptual disturbances, non elicited Suicidal Ideation: No Current Homicidal Ideation?: No Discharge Summary - Discharge Note Reason for Hospitalization: pt is 52ys old male with previous diagnosis of bipolar disorder. cocaine and cannabis use disorder, pt recently discharged AMA , questionable compliance with medications and follow up, pt reported has been increasingly depressed due to financial difficulties , unstable living situation , with he started feeling very lonely and down, experienced suicidal ideation with plan to shoot himself with a gun , came to ER seeking help pt on the unit reporting feeling hopeless and helpless, passive suicidal ideation without active plan on the unit, reported non command auditory hallucinations putting him down, denied manic symptoms, pt relapsed on cocaine and cannabis, last use day before admission Consultations:: List each consultation separately and include: 1. Reason for request. 2. Findings. 3. Follow-up Summary of Hospital Course include:: 1. Description of specific treatment plan utilized for patients during their course of treatmen. 2. Summarize the time- course for resolution of acute symptoms and/or regressed behaviors. 3. Describe issues identified and worked on during hospitalization. 4. Describe medication utilized. 5. Describe medical problems identified and treated. 6. Reassessment of suicide risk Summary of Hospital Course: pt on admission was started on remeron and seroquel, pt on second day was presenting with brighter affect and mood denied suicidal or homicidal ideation denied any current perceptual disturbances pt discharged with plan to follow up [place] [facility] [place] pt mental status was stable denied any current suicidal or homicidal ideation, on discharge pt was not danger to self or others - Diagnosis (1) Depression Current Visit: Yes Status: Acute - Final Diagnosis (DSM 5) Condition upon Discharge: FAIR DSM 5: 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
== END 2017-09-26 12:26 | disposition home or self-care (01) | DRG 747 ==
LOC: H.ER 09:12 → H.ERHOLD 10:43 → H.PSYCH 17:31
PROVIDERS: ADMIT Psychiatry & Neurology Psychiatry; ATTEND Psychiatry & Neurology Psychiatry
PROC: HZ57ZZZ Individual Psychotherapy for Substance Abuse Treatment, Motivational Enhancement (ICD-10-PCS; principal; 2017-09-24)
PROC: HZ59ZZZ Individual Psychotherapy for Substance Abuse Treatment, Supportive (ICD-10-PCS; 2017-09-24)
PROC: GZHZZZZ Group Psychotherapy (ICD-10-PCS; 2017-09-24)
DX: F14.94 Cocaine use, unspecified with cocaine-induced mood disorder (principal); J44.9 Chronic obstructive pulmonary disease, unspecified; I10 Essential (primary) hypertension; F12.90 Cannabis use, unspecified, uncomplicated; F31.9 Bipolar disorder, unspecified; Z91.14 Patient's other noncompliance with medication regimen; K59.09 Other constipation; R45.851 Suicidal ideations; Z91.013 Allergy to seafood; E78.00 Pure hypercholesterolemia, unspecified; E78.5 Hyperlipidemia, unspecified; F17.210 Nicotine dependence, cigarettes, uncomplicated

== ENCOUNTER 2017-10-03 03:14 | Emergency (ER) | payer MEDICAID ==
[2017-10-03 03:14] VITALS: BMI 29.8
[2017-10-03 03:31] VITALS: BP 134/85; PULSE 67; RESP 17; O2SAT 100
--- NOTE | 2017-10-03 03:43 | ED PDOC ---
HPI:Nausea, Vomiting, Diarrhea Time Seen by Provider: 10/03/17 03:25 Chief Complaint (Nursing): Abdominal Pain Chief Complaint (Provider): vomiting, diarrhea History Per: Patient History/Exam Limitations: no limitations Onset/Duration Of Symptoms: Hrs (2) Current Symptoms Are (Timing): Still Present Associated Symptoms: Chills, Nausea, Vomiting, Diarrhea Additional Complaint(s): 52 y/o male presents to ED for evaluation of 4 episodes of vomiting and multiple episodes of watery diarrhea x 2 hours. Associated upper abdominal discomfort. Denies fever, chest pain, shortness of breath, palpitations, urinary symptoms, recent travel, sick contacts. Past Medical History Reviewed: Historical Data, Nursing Documentation, Vital Signs Vital Signs: Last Vital Signs Temp 98.0 F 10/03/17 03:21 Pulse 67 10/03/17 03:21 Resp 17 10/03/17 03:21 BP 134/85 10/03/17 03:21 Pulse Ox 100 10/03/17 03:21 - Medical History PMH: Anxiety, Bipolar Disorder, COPD, Depression, HTN, Hypercholesterolemia, Post Traumatic Stress Disorder, Schizophrenia Denies: Diabetes, Hepatitis, HIV, Chronic Kidney Disease, Seizures, Sexually Transmitted Disease - Surgical History Surgical History: No Surg Hx - Family History Family History: States: Unknown Family Hx - Living Arrangements Living Arrangements: Alone - Social History Current smoker - smoking cessation education provided: Yes Alcohol: Occasional Drugs: Cannabis, Cocaine - Immunization History Hx Tetanus Toxoid Vaccination: No Hx Influenza Vaccination: Yes Hx Pneumococcal Vaccination: No - Home Medications Home Medications: Ambulatory Orders Medication Instructions Recorded Prazosin HCl [Minipress] 2 mg PO HS #0 cap 08/12/17 Mirtazapine [Remeron] 15 mg PO HS 30 Days #30 tab 09/26/17 QUEtiapine [Seroquel] 100 mg PO HS 30 Days #30 tab 09/26/17 amLODIPine [Norvasc] 5 mg PO DAILY #30 tab 09/26/17 amLODIPine [Norvasc] 5 mg PO DAILY 30 Days #30 tab 09/26/17 Dicyclomine [Bentyl] 20 mg PO TID PRN #15 tab 10/03/17 Famotidine [Pepcid] 20 mg PO BID #10 tab 10/03/17 Ondansetron ODT [Zofran ODT] 4 mg PO Q8 PRN #10 odt 10/03/17 - Allergies Allergies/Adverse Reactions: Allergies Allergy/AdvReac Type Severity Reaction Status Date / Time shrimp Allergy Mild SWELLING Verified 09/16/17 23:57 shellfish derived Allergy SWELLING Verified 09/16/17 23:57 Review of Systems ROS Statement: Except As Marked, All Systems Reviewed And Found Negative Gastrointestinal: Positive for: Nausea, Vomiting, Abdominal Pain, Diarrhea Physical Exam - Reviewed Nursing Documentation Reviewed: Yes Vital Signs Reviewed: Yes - Physical Exam Appears: Positive for: Well, Non-toxic, No Acute Distress Head Exam: Positive for: ATRAUMATIC, NORMAL INSPECTION, NORMOCEPHALIC Skin: Positive for: Normal Color Eye Exam: Positive for: Normal appearance ENT: Positive for: Normal ENT Inspection Cardiovascular/Chest: Positive for: Regular Rate, Rhythm Respiratory: Positive for: Normal Breath Sounds Gastrointestinal/Abdominal: Positive for: Bowel Sounds, Soft, Tenderness ( diffuse upper abdominal discomfort to palpation). Negative for: Distended, Guarding, Rebound Back: Positive for: Normal Inspection Extremity: Positive for: Normal ROM Neurologic/Psych: Positive for: Alert, Oriented - Laboratory Results Result Diagrams: 10/03/17 04:06 10/03/17 04:06 - ECG O2 Sat by Pulse Oximetry: 100 - Progress ED Course And Treament: labs, IV fluids, IV zofran, PO bentyl On re-eval, patient tolerating PO, states he is feeling better Patient educated on findings, discharged with rx Zofran, Bentyl Advised fluids, BRAT diet Follow up PMD 2-3 days. Return precautions given Disposition - Clinical Impression Clinical Impression: Gastroenteritis - Patient ED Disposition Is Patient to be Admitted: No Counseled Patient/Family Regarding: Studies Performed, Diagnosis, Need For Followup, Rx Given - Disposition Disposition: Routine/Home Disposition Time: 05:22 Condition: IMPROVED Prescriptions: Dicyclomine [Bentyl] 20 mg PO TID PRN #15 tab PRN Reason: Pain, Mild (1-3) Famotidine [Pepcid] 20 mg PO BID #10 tab Ondansetron ODT [Zofran ODT] 4 mg PO Q8 PRN #10 odt PRN Reason: Nausea/Vomiting Instructions: Gastroenteritis (ED) Forms: [employer] (Romanian)
[2017-10-03] MEDS: Sodium Chloride 0.9% 1,000 ML IV STA (03:50)
[2017-10-03 04:11] LABS: BASO # 0.1 K/uL (0.0-0.2); EOS # 0.2 K/uL (0.0-0.7); EOS % 2.6 % (0.0-4.0); HEMOGLOBIN 13.1 g/dL (12.0-18.0); LYMPH # 2.1 K/uL (1.0-4.3); LYMPH % 30.1 % (20.0-40.0); MEAN CELL VOLUME 86.4 fl (80.0-94.0); MEAN CORPUSCULAR HEMOGLOBIN 29.5 pg (27.0-31.0); MEAN CORPUSCULAR HGB CONC 34.2 g/dL (33.0-37.0); MEAN PLATELET VOLUME 7.9 fl (7.2-11.7); MONO # 0.7 K/uL (0.0-0.8); MONO % 10.1 % (0.0-10.0); NEUT % 56.2 % (50.0-75.0); NRBC % 0.2 % (0.0-0.0); RBC 4.44 Mil/uL (4.40-5.90); RED CELL DISTRIBUTION WIDTH 15.6 % (11.5-14.5)
[2017-10-03 04:18] LABS: ALB/GLOB RATIO 1.2 (1.0-2.1); ALBUMIN 3.8 g/dL (3.5-5.0); ALT/SGPT 53 U/L (21-72); AST/SGOT 35 U/L (17-59); BLOOD UREA NITROGEN 20 mg/dl (9-20); CALCIUM 8.9 mg/dL (8.4-10.2); GFR AFRICAN-AMERICAN > 60; GFR NON-AFRICAN AMERICAN > 60; LIPASE 89 U/L (23-300)
[2017-10-03 04:22] LABS: SQUAMOUS EPITHIAL < 1 /hpf (0-5); URINE BILIRUBIN NEGATIVE (NEGATIVE); URINE BLOOD NEGATIVE (NEGATIVE); URINE CLARITY SLIGHTY-CLOUDY (Clear); URINE COLOR YELLOW (YELLOW); URINE GLUCOSE (UA) NEG (Normal); URINE HYALINE CAST 0-2 /hpf (0-2); URINE LEUKOCYTE ESTERASE NEG Leu/uL (Negative); URINE PROTEIN 30 mg/dL (NEGATIVE)
[2017-10-03 06:37] VITALS: TEMP 98
== END 2017-10-03 06:00 | disposition home or self-care (01) ==
LOC: H.ER 03:14
DX: K52.9 Noninfective gastroenteritis and colitis, unspecified (principal); E78.00 Pure hypercholesterolemia, unspecified; F17.200 Nicotine dependence, unspecified, uncomplicated; F20.9 Schizophrenia, unspecified; F31.9 Bipolar disorder, unspecified; F43.10 Post-traumatic stress disorder, unspecified; I10 Essential (primary) hypertension; J44.9 Chronic obstructive pulmonary disease, unspecified
CPT/HCPCS: 80053; 81003; 83690; 85025; 99283; J7030

== ENCOUNTER 2017-10-09 23:01 | Emergency (ER) | payer MEDICAID ==
[2017-10-09 23:02] VITALS: BMI 29.8
[2017-10-09 23:22] VITALS: O2SAT 98
[2017-10-10 01:50] LABS: BASO # 0.1 K/uL (0.0-0.2); EOS # 0.1 K/uL (0.0-0.7); EOS % 1.9 % (0.0-4.0); HEMOGLOBIN 12.9 g/dL (12.0-18.0); LYMPH % 26.6 % (20.0-40.0); MEAN CELL VOLUME 86.3 fl (80.0-94.0); MEAN CORPUSCULAR HEMOGLOBIN 28.5 pg (27.0-31.0); MEAN PLATELET VOLUME 7.6 fl (7.2-11.7); MONO # 0.8 K/uL (0.0-0.8); MONO % 10.1 % (0.0-10.0); NEUT # 4.6 K/uL (1.8-7.0); NEUT % 60.4 % (50.0-75.0); NRBC % 0.1 % (0.0-0.0); RBC 4.52 Mil/uL (4.40-5.90); RED CELL DISTRIBUTION WIDTH 15.2 % (11.5-14.5); WHITE BLOOD COUNT 7.6 K/uL (4.8-10.8)
[2017-10-10 02:53] LABS: ALB/GLOB RATIO 1.2 (1.0-2.1); ALBUMIN 3.8 g/dL (3.5-5.0); ALT/SGPT 35 U/L (21-72); AST/SGOT 28 U/L (17-59); BLOOD UREA NITROGEN 21 mg/dl (9-20); CALCIUM 8.7 mg/dL (8.4-10.2); GFR AFRICAN-AMERICAN > 60; GFR NON-AFRICAN AMERICAN > 60
--- NOTE | 2017-10-10 02:55 | ED PDOC ---
HPI: SOB/CHF/COPD Time Seen by Provider: 10/10/17 00:00 Chief Complaint (Nursing): Shortness Of Breath Chief Complaint (Provider): Shortness Of Breath History Per: Patient History/Exam Limitations: no limitations Onset/Duration Of Symptoms: Hrs (2 pm) Current Symptoms Are (Timing): Gone Now Additional Complaint(s): 52 year old male with a history of HTN presents to the ED with shortness of breath status post fall. Patient reports he was at work when he fell off of a ladder and landed on a wooden floor and hit back of his head. but he never lost consciosness and never had seizure. he did nto vomit.. His symptoms have since resolved. He denies any other injury, trauma or medical complaints. Patient is noncompliant with his medications. PMD: none provided Past Medical History Vital Signs: Last Vital Signs Temp 98.2 F 10/10/17 06:33 Pulse 71 10/13/17 20:33 Resp 16 10/10/17 06:33 BP 155/90 H 10/10/17 06:33 Pulse Ox 98 10/13/17 20:33 - Medical History PMH: Anxiety, Bipolar Disorder, COPD, Depression, HTN, Hypercholesterolemia, Post Traumatic Stress Disorder, Schizophrenia Denies: Diabetes, Hepatitis, HIV, Chronic Kidney Disease, Seizures, Sexually Transmitted Disease - Surgical History Surgical History: No Surg Hx - Family History Family History: States: Unknown Family Hx - Social History Current smoker - smoking cessation education provided: Yes (4 cigarettes daily) Ex-Smoker (has not smoked in the last 12 months): No Alcohol: None Drugs: Cannabis (daily), Cocaine (sometimes, last use friday) - Immunization History Hx Tetanus Toxoid Vaccination: No Hx Influenza Vaccination: Yes Hx Pneumococcal Vaccination: No - Home Medications Home Medications: Ambulatory Orders Medication Instructions Recorded Prazosin HCl [Minipress] 2 mg PO HS #0 cap 08/12/17 Mirtazapine [Remeron] 15 mg PO HS 30 Days #30 tab 09/26/17 QUEtiapine [Seroquel] 100 mg PO HS 30 Days #30 tab 09/26/17 amLODIPine [Norvasc] 5 mg PO DAILY #30 tab 09/26/17 amLODIPine [Norvasc] 5 mg PO DAILY 30 Days #30 tab 09/26/17 Dicyclomine [Bentyl] 20 mg PO TID PRN #15 tab 10/03/17 Famotidine [Pepcid] 20 mg PO BID #10 tab 10/03/17 Ondansetron ODT [Zofran ODT] 4 mg PO Q8 PRN #10 odt 10/03/17 - Allergies Allergies/Adverse Reactions: Allergies Allergy/AdvReac Type Severity Reaction Status Date / Time shrimp Allergy Mild SWELLING Verified 09/16/17 23:57 shellfish derived Allergy SWELLING Verified 09/16/17 23:57 Curb-65 Severity Score - CURB-65 Severity Score Confusion: No Bun >19mg/dl (>7mmol/L): No Respiratory Rate greater than/equal to 30: No Systolic BP <90 or Diastolic BP less than/equal 60mmHg: No Age >64: No Curb-65 Score: 0 Percentage 30-day mortality: 0.6% Wells Criteria for PE - Wells Criteria for Pulmonary Embolism Clinical Signs and Symptoms of DVT: No P.E is #1 Diagnosis, or Equally Likely: No Heart Rate >100: No Immobilization at least 3 days;Surgery previous 4 weeks: No Previous, objectively diagnosed PE or DVT: No Hemoptysis: No Malignancy w/treatment within 6 months, or palliative: No Total Score: 0 Review of Systems ROS Statement: Except As Marked, All Systems Reviewed And Found Negative Cardiovascular: Negative for: Chest Pain Respiratory: Positive for: Shortness of Breath (resolved) Physical Exam - Reviewed Nursing Documentation Reviewed: Yes Vital Signs Reviewed: Yes - Physical Exam Appears: Positive for: Non-toxic, No Acute Distress Head Exam: Positive for: ATRAUMATIC, NORMAL INSPECTION, NORMOCEPHALIC Skin: Positive for: Normal Color, Warm, Dry Eye Exam: Positive for: Normal appearance, EOMI, PERRL Neck: Positive for: Normal, Painless ROM Cardiovascular/Chest: Positive for: Regular Rate, Rhythm. Negative for: Murmur Respiratory: Positive for: Normal Breath Sounds. Negative for: Respiratory Distress Gastrointestinal/Abdominal: Positive for: Normal Exam, Soft. Negative for: Tenderness Extremity: Positive for: Normal ROM (upper and lower extremities) Neurologic/Psych: Positive for: Alert, Oriented (x3). Negative for: Motor/ Sensory Deficits Comments: no neck pain or tenderness - Laboratory Results Result Diagrams: 10/10/17 01:49 06/15/18 01:33 - ECG ECG Rhythm: Positive for: Sinus Rhythm Interpretation Of Abn EKG: Inferior lateral T wave inversion which were not present on EKG from 09/24/17 Rate: 71 O2 Sat by Pulse Oximetry: 98 (RA) Pulse Ox Interpretation: Normal Medical Decision Making Medical Decision Making: Time: 1:20 FALL.SOB Initial Plan: pt states he fell however he has no external signs of injury and has been sleeping throughout ER stay. he states that the sob he had earlier resolved. throughout er stay pt breathing comfortbnaly, airway intact, no wheezing, no vomiting and no abnormalities on exam. --CT Head --CMP --Troponin --CBC with differentials Time: 2:43 CT head: FINDINGS: Brain: No acute intracranial hemorrhage. No abnormal extra-axial fluid collection. No herniation. Patent basal cisterns. Preserved villaseñor-white matter differentiation. No evidence of acute ischemia. No evident intracranial mass. Ventricles: No ventriculomegaly. Bones/joints: No evident acute fracture or suspicious osseous lesion. Sinuses: The imaged paranasal sinuses are clear. Mastoid air cells: The mastoid air cells are clear. Orbits: No evident acute abnormality of the intraorbital contents. Soft tissues: No acute findings. IMPRESSION: No acute findings. Time:6:30 --Troponin came back negative. Patient advised to follow up with PMD at clinic for abnormal blood pressure and EKG reading. Scribe Attestation: Documented by Olya Esposito, acting as a scribe for Taryn Michele MD Provider Scribe Attestation: All medical record entries made by the Scribe were at my direction and personally dictated by me. I have reviewed the chart and agree that the record accurately reflects my personal performance of the history, physical exam, medical decision making, and the department course for this patient. I have also personally directed, reviewed, and agree with the discharge instructions and disposition. Disposition - Clinical Impression Clinical Impression: Head injury - Patient ED Disposition Is Patient to be Admitted: No Counseled Patient/Family Regarding: Studies Performed, Diagnosis, Need For Followup - Disposition Referrals: [facility] [Outside] [facility] [Outside] Disposition: Routine/Home Disposition Time: 06:00 Condition: IMPROVED Additional Instructions: follow up with your primary doctor in 1-2 days return to the ED with any worsening or concerning symptoms Instructions: Closed Head Injury, Closed Head Injury (DC) Forms: [employer] (French)
[2017-10-10 06:39] VITALS: BP 155/90; RESP 16; TEMP 98.2
[2017-10-10 06:41] VITALS: PULSE 71
--- NOTE | 2017-10-10 10:23 | CT ---
PROCEDURE: CT HEAD WITHOUT CONTRAST. HISTORY: headache COMPARISON: None available. TECHNIQUE: Axial computed tomography images were obtained through the head/brain without intravenous contrast. Coronal and sagittal reconstructed images. Radiation dose: Total exam DLP = 1118.67 mGy-cm. This CT exam was performed using one or more of the following dose reduction techniques: Automated exposure control, adjustment of the mA and/or kV according to patient size, and/or use of iterative reconstruction technique. FINDINGS: HEMORRHAGE: No intracranial hemorrhage. BRAIN: No mass effect or edema. No atrophy or chronic microvascular ischemic changes. VENTRICLES: Unremarkable. No hydrocephalus. CALVARIUM: Unremarkable. PARANASAL SINUSES: Unremarkable as visualized. No significant inflammatory changes. MASTOID AIR CELLS: Unremarkable as visualized. No inflammatory changes. OTHER FINDINGS: None. IMPRESSION: No acute intracranial abnormalities. No significant findings to account for the clinical presentation. Concordant results (preliminary interpretation) provided by [employer]. Procedure Completed: 01:48 Preliminary ([facility]) Report: Dictated and Authenticated: 02:43 Final Interpretation: 22:21
--- NOTE | 2017-10-10 11:08 | CARD ---
APPROVED REPORT EKG Measurement Heart [id number] <Conclusion> Normal sinus rhythm Possible Left atrial enlargement ST & T wave abnormality, consider inferolateral ischemia Abnormal ECG
== END 2017-10-10 06:40 | disposition home or self-care (01) ==
LOC: H.ER 23:01
DX: S09.90XA Unspecified injury of head, initial encounter (principal); W11.XXXA Fall on and from ladder, initial encounter; Y99.0 Civilian activity done for income or pay; R06.02 Shortness of breath; F43.10 Post-traumatic stress disorder, unspecified; I10 Essential (primary) hypertension; F31.9 Bipolar disorder, unspecified; E78.00 Pure hypercholesterolemia, unspecified; F20.9 Schizophrenia, unspecified

== ENCOUNTER 2017-12-25 23:41 | Inpatient (IN) | payer MEDICAID ==
[2017-12-25 23:41] VITALS: BMI 31.1
--- NOTE | 2017-12-26 00:25 | ED PDOC ---
HPI: Psych/Substance Abuse Time Seen by Provider: 12/25/17 23:55 Chief Complaint (Nursing): Psychiatric Evaluation Chief Complaint (Provider): Psychiatric Evaluation History Per: Patient History/Exam Limitations: no limitations Onset/Duration Of Symptoms: Days (x 1) Current Symptoms Are (Timing): Still Present Suicide/Self Injury Attempted (Context): Ingestion Modifying Factor(s): Alcohol, Cocaine Additional Complaint(s): 52 year old male with a history of bipolar disorder and substance abuse presents to the ED for evaluation after suicidal gestures earlier this last night. Patient states that he did cocaine, drank alcohol and took 3 Seroquil in an attempt to overdose. He also reports putting a gun in his mouth. Denies auditory and visual hallucinations. PMD: none provided Past Medical History Reviewed: Historical Data, Nursing Documentation, Vital Signs Vital Signs: Last Vital Signs Temp 99.0 F 12/25/17 23:48 Pulse 95 H 12/25/17 23:48 Resp 16 12/25/17 23:48 BP 144/97 H 12/25/17 23:48 Pulse Ox 98 12/25/17 23:48 - Medical History PMH: Anxiety, Bipolar Disorder, COPD, Depression, HTN, Hypercholesterolemia, Post Traumatic Stress Disorder, Schizophrenia Denies: Diabetes, Hepatitis, HIV, Chronic Kidney Disease, Seizures, Sexually Transmitted Disease - Surgical History Surgical History: No Surg Hx - Family History Family History: States: Unknown Family Hx - Social History Current smoker - smoking cessation education provided: Yes Alcohol: < 2 Drinks/Day Drugs: Cocaine - Immunization History Hx Tetanus Toxoid Vaccination: No Hx Influenza Vaccination: Yes Hx Pneumococcal Vaccination: No - Home Medications Home Medications: Ambulatory Orders Medication Instructions Recorded Mirtazapine [Remeron] 30 mg PO HS #14 tablet 10/17/17 QUEtiapine [SEROquel XR] 300 mg PO HS #14 ter 10/17/17 amLODIPine [Norvasc] 5 mg PO DAILY #14 tab 10/17/17 - Allergies Allergies/Adverse Reactions: Allergies Allergy/AdvReac Type Severity Reaction Status Date / Time shrimp Allergy Mild SWELLING Verified 12/25/17 23:48 shellfish derived Allergy SWELLING Verified 12/25/17 23:48 Review of Systems ROS Statement: Except As Marked, All Systems Reviewed And Found Negative Psych: Positive for: Suicidal ideation Physical Exam - Reviewed Nursing Documentation Reviewed: Yes Vital Signs Reviewed: Yes - Physical Exam Appears: Positive for: Non-toxic, No Acute Distress Head Exam: Positive for: ATRAUMATIC, NORMAL INSPECTION, NORMOCEPHALIC Skin: Positive for: Normal Color, Warm, Dry Eye Exam: Positive for: EOMI, Normal appearance, PERRL Neck: Positive for: Normal, Painless ROM, Supple Cardiovascular/Chest: Positive for: Regular Rate, Rhythm. Negative for: Murmur Respiratory: Positive for: Normal Breath Sounds. Negative for: Respiratory Distress Gastrointestinal/Abdominal: Positive for: Normal Exam, Soft. Negative for: Tenderness Extremity: Positive for: Normal ROM. Negative for: Deformity Neurologic/Psych: Positive for: Alert, Oriented (x 3) - Laboratory Results Result Diagrams: 12/26/17 00:31 12/26/17 00:31 - ECG O2 Sat by Pulse Oximetry: 98 (RA) Pulse Ox Interpretation: Normal Medical Decision Making Medical Decision Makin:55 Impression; suicidal gesture Initial Plan: --Labs --1:1 --Crisis evaluation : Labs reviewed demonstrate no clinically significant abnormalities Patient evaluated by crisis and will be admitted to psychiatric unit for further treatment --Patient is medically stable for psychiatric admission. Diagnosis: Depression, Substance Abuse Scribe Attestation: Documented by Meli Martinez acting as a scribe for Terrance Lee MD Provider Scribe Attestation: All medical record entries made by the Scribe were at my direction and personally dictated by me. I have reviewed the chart and agree that the record accurately reflects my personal performance of the history, physical exam, medical decision making, and the department course for this patient. I have also personally directed, reviewed, and agree with the discharge instructions and disposition. Disposition - Clinical Impression Clinical Impression: Substance abuse, Depression - Patient ED Disposition Is Patient to be Admitted: Yes - Disposition Disposition Time: :22 Condition: STABLE - Pt Status Changed To: Hospital Disposition Of: Inpatient - Admit Certification Admit to Inpatient:: After my assessment, the patient will require hospitalization for at least two midnights. This is because of the severity of symptoms shown, intensity of services needed, and/or the medical risk in this patient being treated as an outpatient.
[2017-12-26 00:35] LABS: BASO # 0.1 K/uL (0.0-0.2); BASO % 0.9 % (0.0-2.0); EOS # 0.1 K/uL (0.0-0.7); EOS % 1.1 % (0.0-4.0); HEMOGLOBIN 14.1 g/dL (12.0-18.0); LYMPH % 31.2 % (20.0-40.0); MEAN CELL VOLUME 84.5 fl (80.0-94.0); MEAN CORPUSCULAR HEMOGLOBIN 28.6 pg (27.0-31.0); MEAN CORPUSCULAR HGB CONC 33.9 g/dL (33.0-37.0); MEAN PLATELET VOLUME 7.8 fl (7.2-11.7); MONO # 0.5 K/uL (0.0-0.8); MONO % 8.2 % (0.0-10.0); NEUT # 3.8 K/uL (1.8-7.0); NEUT % 58.6 % (50.0-75.0); NRBC % 0.1 % (0.0-0.0); RBC 4.92 Mil/uL (4.40-5.90); RED CELL DISTRIBUTION WIDTH 15.5 % (11.5-14.5); WHITE BLOOD COUNT 6.5 K/uL (4.8-10.8)
[2017-12-26 00:44] LABS: ALB/GLOB RATIO 1.3 (1.0-2.1); ALBUMIN 4.4 g/dL (3.5-5.0); ALT/SGPT 33 U/L (21-72); AST/SGOT 31 U/L (17-59); BLOOD UREA NITROGEN 14 mg/dl (9-20); CALCIUM 9.2 mg/dL (8.4-10.2); GFR NON-AFRICAN AMERICAN > 60
[2017-12-26] MEDS ORDERED: Potassium Chloride 20 mEq ER Tab PO STA (00:50)
[2017-12-26] MEDS ORDERED: Potassium Chloride 20 mEq ER Tab PO ONE (00:59)
[2017-12-26 04:07] LABS: BARBITURATES, UR NEGATIVE (NEGATIVE)
[2017-12-26 04:08] LABS: BENZODIAZEPINES, UR NEGATIVE (NEGATIVE); OPIATES, UR NEGATIVE (NEGATIVE); PHENCYCLIDINE, UR NEGATIVE (NEGATIVE)
[2017-12-26 04:11] LABS: SQUAMOUS EPITHIAL 1 /hpf (0-5); URINE BILIRUBIN NEGATIVE (NEGATIVE); URINE BLOOD NEGATIVE (NEGATIVE); URINE CLARITY SLIGHTY-CLOUDY (Clear); URINE COLOR YELLOW (YELLOW); URINE GLUCOSE (UA) 50 mg/dL (Normal); URINE LEUKOCYTE ESTERASE NEG Leu/uL (Negative); URINE PROTEIN 30 mg/dL (NEGATIVE)
[2017-12-26] MEDS ORDERED: Magnesium Hydroxide Susp 30 ml UD PO PRN (04:56)
[2017-12-26] MEDS ORDERED: DiphenhydrAMINE 50 mg/ml Inj IM PRN (04:56)
[2017-12-26] MEDS ORDERED: Alum-Mag Hydrox-Simethicone Susp (30 mL) PO PRN (05:09)
--- NOTE | 2017-12-26 05:13 | PCM.BM ---
<Jovany Taylor P - Last Filed: 12/26/17 05:12> Treatment Plan Problems - Problems identified on initial assessmt Hopelessness/Helplessness Date Initiated: 12/26/17 Time Initiated: 05:12 Assessment reference: NA Status: Active Medication nonadherence Date Initiated: 12/26/17 Time Initiated: 05:12 Assessment reference: NA Status: Active Treatment assets and liabiliti Patient Assests: adapts well, cooperative, motivated, self-reliant, ADL independent, physically healthy, negotiates basic needs, cognitively intact, good interpersonal skills Patient Liabilities: financial problems, poor support system, relationship conflicts, substance abuse, medical problems - Milieu Protocol Maintain good personal hygiene: daily Encourage regular showers, daily Remind patient to perform daily oral care, daily Assist patient to perform ADL's Conduct patient checks and document Observation sheet: Q15 minutes Maintain personal safety: every shift Educate patient to report safety concerns to staff, every shift Monitor environment for contraband/sharps Medication safety: Monitor for expected outcome, potential side effects: every shift, Assess barriers to learning: every shift, Assess readiness for medication education: every shift <Tree Baron J - Last Filed: 12/26/17 16:51> Family Contact Family involvement: Famliy/SO not involved Family contact: Patient declines to allow family contact at present Family contact name: Pt denied. - Goals for Treatment Patient goals for treatment: Pt reported the voices are back, so he would like to be restabilized on medications. Discharge/Continuing Care - Education Needs Education Needs: Patient Medication, Patient Diagnosis/Disease Process, Patient Coping Skills, Patient Community resources, Patient Aftercare Safety Plan - Discharge Discharge Criteria: Tolerates medication w/o severe side effects, Free of Suicidal thoughts, Free of paranoid thoughts, Free of agitation, Normal sleep pattern, Reduction of target symptoms Discharge to:: Home - Treatment Team Participation Patient/Family/SO Statement: 12/26/17 16:52 Pt was seen in treatment team today and reported that the "voices came back" and he attempted to commit suicide with cocaine and marijuana. Discussed with Family/SO: No Was Patient/Family/SO present at Treatment Team Meeting: Yes <Brandyn Franco - Last Filed: 12/28/17 13:58> - Diagnosis (1) Depression Status: Acute Interventions: pharmacotherapy, psychotherapy 12/28/17 13:57
[2017-12-26 05:15] VITALS: O2SAT 98
--- NOTE | 2017-12-26 07:43 | CARD ---
APPROVED REPORT Date of service: 12/26/2017 <Conclusion> Normal sinus rhythm Possible Left atrial enlargement Nonspecific T wave abnormality Abnormal ECG
--- NOTE | 2017-12-26 11:06 | RAD ---
HISTORY: admit COMPARISON: Chest x-ray performed 09/24/17 TECHNIQUE: Chest, one view. FINDINGS: Examination limited by habitus. LUNGS: Bilateral lower lobe patchy infiltrates. Please note that chest x-ray has limited sensitivity for the detection of pulmonary masses. PLEURA: No significant pleural effusion identified. No definite pneumothorax . CARDIOVASCULAR: Cardiomegaly. OSSEOUS STRUCTURES: Degenerative changes. VISUALIZED UPPER ABDOMEN: Unremarkable. OTHER FINDINGS: None. IMPRESSION: Patchy infiltrates involving bilateral lower lobes.
--- NOTE | 2017-12-26 11:44 | CP.PCM.HP ---
<Shanti Rogers - Last Filed: 12/26/17 13:27> History of Present Illness - History of Present Illness History of Present Illness: CC: consult for HTN HPI: 52 YO Male with sig PMHx of bipolar/schizophrenia, depression, cocaine abuse, HTN, was admitted after attempt suicide by overdose. Pt states that for the past 3 months he had not been taking any of his medications, they make his drowsy. Pt states that he feels fine otherwise, he is healthy. Denies chest pain , dyspnea, abdominal pain, n/v/d, fevers. Endorsing mild constipation, last BM this AM. 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 Current smoker, 2 cigs/day for past 10 years. social ETOH and Uses cocaine (snort) and marijuana weekly. Last use was yesterday. Present on Admission - Present on Admission Any Indicators Present on Admission: No Review of Systems - Constitutional Constitutional: absent: Fever, Headache, Night Sweats - Cardiovascular Cardiovascular: absent: Chest Pain, Dyspnea, Palpitations - Respiratory Respiratory: absent: Cough, Dyspnea - Gastrointestinal Gastrointestinal: Constipation. absent: Diarrhea - Genitourinary Genitourinary: absent: Difficulty Urinating, Dysuria, Hematuria - Musculoskeletal Musculoskeletal: absent: Back Pain - Neurological Neurological: absent: Numbness, Weakness Past Patient History - Infectious Disease Hx of Infectious Diseases: None - Past Medical History & Family History Past Medical History?: Yes - Past Social History Smoking Status: Light Smoker < 10 Cigarettes Daily Alcohol: Social Drugs: Cannabis, Cocaine - CARDIAC Hx Hypercholesterolemia: Yes Hx Hypertension: Yes - PULMONARY Hx Respiratory Disorders: Yes Hx Chronic Obstructive Pulmonary Disease (COPD): Yes - NEUROLOGICAL Hx Neurological Disorder: No Hx Seizures: No - HEENT Hx HEENT Problems: No - RENAL Hx Chronic Kidney Disease: No - ENDOCRINE/METABOLIC Hx Endocrine Disorders: No - HEMATOLOGICAL/ONCOLOGICAL Hx Blood Disorders: No Hx Human Immunodeficiency Virus (HIV): No - INTEGUMENTARY Hx Dermatological Problems: No - MUSCULOSKELETAL/RHEUMATOLOGICAL Hx Musculoskeletal Disorders: No - GASTROINTESTINAL Hx Gastrointestinal Disorders: No - GENITOURINARY/GYNECOLOGICAL Hx Genitourinary Disorders: No Hx Sexually Transmitted Disorders: No - PSYCHIATRIC Hx Substance Use: Yes - SURGICAL HISTORY Hx Surgeries: No - ANESTHESIA Hx Anesthesia: No Hx Anesthesia Reactions: No Hx Malignant Hyperthermia: No Meds Allergies/Adverse Reactions: Allergies Allergy/AdvReac Type Severity Reaction Status Date / Time shrimp Allergy Mild SWELLING Verified 12/25/17 23:48 shellfish derived Allergy SWELLING Verified 12/25/17 23:48 Physical Exam - Constitutional Appears: No Acute Distress - Head Exam Head Exam: NORMAL INSPECTION - Eye Exam Eye Exam: Normal appearance - ENT Exam ENT Exam: Mucous Membranes Moist - Respiratory Exam Respiratory Exam: Clear to Auscultation Bilateral, NORMAL BREATHING PATTERN. absent: Wheezes - Cardiovascular Exam Cardiovascular Exam: REGULAR RHYTHM, +S1, +S2. absent: Systolic Murmur - GI/Abdominal Exam GI & Abdominal Exam: Normal Bowel Sounds, Soft. absent: Tenderness - Extremities Exam Extremities exam: Positive for: normal inspection. Negative for: calf tenderness, pedal edema - Back Exam Back exam: NORMAL INSPECTION. absent: CVA tenderness (L), CVA tenderness (R) - Neurological Exam Neurological exam: Alert, CN II-XII Intact, Oriented x3 - Psychiatric Exam Psychiatric exam: Normal Mood Results - Vital Signs Recent Vital Signs: Last Vital Signs Temp 97.3 F L 12/26/17 09:20 Pulse 66 12/26/17 09:20 Resp 18 12/26/17 09:20 BP 157/106 H 12/26/17 09:20 Pulse Ox 98 12/26/17 05:15 - Labs Result Diagrams: 12/26/17 00:31 12/26/17 00:31 Labs: Laboratory Results - last 24 hr 12/26/17 12/26/17 12/26/17 00:26 00:31 00:31 WBC 6.5 RBC 4.92 Hgb 14.1 Hct 41.6 MCV 84.5 MCH 28.6 MCHC 33.9 RDW 15.5 H Plt Count 249 MPV 7.8 Neut % (Auto) 58.6 Lymph % (Auto) 31.2 Dunn % (Auto) 8.2 Eos % (Auto) 1.1 Baso % (Auto) 0.9 Neut # (Auto) 3.8 Lymph # (Auto) 2.0 Dunn # (Auto) 0.5 Eos # (Auto) 0.1 Baso # (Auto) 0.1 Sodium 142 Potassium 3.3 L Chloride 108 H Carbon Dioxide 24 Anion Gap 13 BUN 14 Creatinine 1.0 Est GFR ( Amer) > 60 Est GFR (Non-Af Amer) > 60 POC Glucose (mg/dL) 133 H Random Glucose 131 H Calcium 9.2 Total Bilirubin 0.5 AST 31 ALT 33 Alkaline Phosphatase 78 Total Protein 7.7 Albumin 4.4 Globulin 3.3 Albumin/Globulin Ratio 1.3 Urine Color Urine Clarity Urine pH Ur Specific [place] Urine Protein Urine Glucose (UA) Urine Ketones Urine Blood Urine Nitrate Urine Bilirubin Urine Urobilinogen Ur Leukocyte Esterase Urine RBC (Auto) Urine Microscopic WBC Ur Squamous Epith Cells Hyaline Casts Urine Opiates Screen Urine Methadone Screen Ur Barbiturates Screen Ur Phencyclidine Scrn Ur Amphetamines Screen U Benzodiazepines Scrn U Oth Cocaine Metabols U Cannabinoids Screen Alcohol, Quantitative 79 H 12/26/17 12/26/17 03:44 03:44 WBC RBC Hgb Hct MCV MCH MCHC RDW Plt Count MPV Neut % (Auto) Lymph % (Auto) Dunn % (Auto) Eos % (Auto) Baso % (Auto) Neut # (Auto) Lymph # (Auto) Dunn # (Auto) Eos # (Auto) Baso # (Auto) Sodium Potassium Chloride Carbon Dioxide Anion Gap BUN Creatinine Est GFR ( Amer) Est GFR (Non-Af Amer) POC Glucose (mg/dL) Random Glucose Calcium Total Bilirubin AST ALT Alkaline Phosphatase Total Protein Albumin Globulin Albumin/Globulin Ratio Urine Color Yellow Urine Clarity Slighty-cloudy Urine pH 5.0 Ur Specific [place] 1.030 Urine Protein 30 Urine Glucose (UA) 50 Urine Ketones Negative Urine Blood Negative Urine Nitrate Negative Urine Bilirubin Negative Urine Urobilinogen 2.0 Ur Leukocyte Esterase Neg Urine RBC (Auto) 3 Urine Microscopic WBC 3 Ur Squamous Epith Cells 1 Hyaline Casts 3-5 H Urine Opiates Screen Negative Urine Methadone Screen Negative Ur Barbiturates Screen Negative Ur Phencyclidine Scrn Negative Ur Amphetamines Screen Negative U Benzodiazepines Scrn Negative U Oth Cocaine Metabols Positive H U Cannabinoids Screen Positive H Alcohol, Quantitative Assessment & Plan - Assessment and Plan (Free Text) Assessment: Assessment/Plan: 52 YO Male with sig PMHx of bipolar/schizophrenia, depression, cocaine abuse, HTN, was admitted after attempt suicide by overdose. Medicine was consulted for HTN. HTN -uncontrolled, noncompliance with PO meds -bp elevated today -will start home, Norvasc 5mg PO daily -cont to monitor, adjust meds as needed Constipation -will start colace 100mg daily -will adjust as needed Bipolar/schizophrenia, depression, Substance Abuse -management per Psych team -WA protocol Hypokalemia -KCl replaced -f/w AM labs Will continue to follow while inpatient. Thank you. <Elizabeth Li - Last Filed: 12/26/17 18:18> Results - Vital Signs Recent Vital Signs: Last Vital Signs Temp 97.3 F L 12/26/17 09:20 Pulse 66 12/26/17 11:49 Resp 18 12/26/17 09:20 BP 157/106 H 12/26/17 11:49 Pulse Ox 98 12/26/17 05:15 - Labs Result Diagrams: 12/26/17 00:31 12/26/17 00:31 Labs: Laboratory Results - last 24 hr 12/26/17 12/26/17 12/26/17 00:26 00:31 00:31 WBC 6.5 RBC 4.92 Hgb 14.1 Hct 41.6 MCV 84.5 MCH 28.6 MCHC 33.9 RDW 15.5 H Plt Count 249 MPV 7.8 Neut % (Auto) 58.6 Lymph % (Auto) 31.2 Dunn % (Auto) 8.2 Eos % (Auto) 1.1 Baso % (Auto) 0.9 Neut # (Auto) 3.8 Lymph # (Auto) 2.0 Dunn # (Auto) 0.5 Eos # (Auto) 0.1 Baso # (Auto) 0.1 Sodium 142 Potassium 3.3 L Chloride 108 H Carbon Dioxide 24 Anion Gap 13 BUN 14 Creatinine 1.0 Est GFR ( Amer) > 60 Est GFR (Non-Af Amer) > 60 POC Glucose (mg/dL) 133 H Random Glucose 131 H Calcium 9.2 Total Bilirubin 0.5 AST 31 ALT 33 Alkaline Phosphatase 78 Total Protein 7.7 Albumin 4.4 Globulin 3.3 Albumin/Globulin Ratio 1.3 Urine Color Urine Clarity Urine pH Ur Specific [place] Urine Protein Urine Glucose (UA) Urine Ketones Urine Blood Urine Nitrate Urine Bilirubin Urine Urobilinogen Ur Leukocyte Esterase Urine RBC (Auto) Urine Microscopic WBC Ur Squamous Epith Cells Hyaline Casts Urine Opiates Screen Urine Methadone Screen Ur Barbiturates Screen Ur Phencyclidine Scrn Ur Amphetamines Screen U Benzodiazepines Scrn U Oth Cocaine Metabols U Cannabinoids Screen Alcohol, Quantitative 79 H 12/26/17 12/26/17 03:44 03:44 WBC RBC Hgb Hct MCV MCH MCHC RDW Plt Count MPV Neut % (Auto) Lymph % (Auto) Dunn % (Auto) Eos % (Auto) Baso % (Auto) Neut # (Auto) Lymph # (Auto) Dunn # (Auto) Eos # (Auto) Baso # (Auto) Sodium Potassium Chloride Carbon Dioxide Anion Gap BUN Creatinine Est GFR ( Amer) Est GFR (Non-Af Amer) POC Glucose (mg/dL) Random Glucose Calcium Total Bilirubin AST ALT Alkaline Phosphatase Total Protein Albumin Globulin Albumin/Globulin Ratio Urine Color Yellow Urine Clarity Slighty-cloudy Urine pH 5.0 Ur Specific [place] 1.030 Urine Protein 30 Urine Glucose (UA) 50 Urine Ketones Negative Urine Blood Negative Urine Nitrate Negative Urine Bilirubin Negative Urine Urobilinogen 2.0 Ur Leukocyte Esterase Neg Urine RBC (Auto) 3 Urine Microscopic WBC 3 Ur Squamous Epith Cells 1 Hyaline Casts 3-5 H Urine Opiates Screen Negative Urine Methadone Screen Negative Ur Barbiturates Screen Negative Ur Phencyclidine Scrn Negative Ur Amphetamines Screen Negative U Benzodiazepines Scrn Negative U Oth Cocaine Metabols Positive H U Cannabinoids Screen Positive H Alcohol, Quantitative Attending/Attestation - Attestation I have personally seen and examined this patient.: Yes I have fully participated in the care of the patient.: Yes I have reviewed all pertinent clinical information: Yes Notes (Text): 12/26/17 18:18 Seen, examined, and discussed with residents Drs. Casillas and Sue. Agree with findings and plan as above.
--- NOTE | 2017-12-26 14:29 | PCM.PSYCH ---
Initial Psychiatric Evaluation - Initial Psychiatric Evaluation Type of Admission: Voluntary Legal Status: Capacity Chief Complaint (in patient's own words): I am depressed Patient's Reaction to Hospitalization: pt requested help History of Present Illness and Precipitating Events: pt is 52ys old male with previous diagnosis of schizoaffective disorder depressed, cannabis and cocaine abuse, recently non compliant with medications or follow up, pt has been increasingly depressed due to financial difficulties and his son being in hospital , relapsed on cocaine and cannabis, started to experience auditory halluciantions and suicidal ideation, came to ER seeking help pt on the unit presenting with hopelessness , helplessness , passive suicidal ideation without active plan on the unit denied command hallucinations, denied homicidal ideation Current Medications: Active Medications Generic Name Dose Route Start Last Admin Trade Name Freq PRN Reason Stop Dose Admin Acetaminophen 650 mg 12/26/17 04:56 Tylenol 325mg Tab PO Q4 PRN pain level 4-7 Al Hydrox/Mg Hydrox/Simethicone 30 ml 12/26/17 05:09 Maalox Plus 30 Ml PO Q4 PRN Dyspepsia Amlodipine Besylate 5 mg 12/26/17 11:15 12/26/17 11:49 Norvasc PO 5 mg DAILY ALIS Administration Diphenhydramine HCl 50 mg 12/26/17 04:56 Benadryl IM Q6 PRN Extrapyramidal S/S Unable PO Diphenhydramine HCl 50 mg 12/26/17 04:56 Benadryl PO Q6 PRN Extrapyramidal Symptoms Diphenhydramine HCl 50 mg 12/26/17 05:04 Benadryl PO HS PRN Sleep Docusate Sodium 100 mg 12/27/17 09:00 Colace PO DAILY ALIS Haloperidol 5 mg 12/26/17 04:56 Haldol PO Q4 PRN Agitation Haloperidol Lactate 5 mg 12/26/17 04:56 Haldol IM Q4 PRN Agitation, Unable to Take PO Hydroxyzine Pamoate 50 mg 12/26/17 12:51 Vistaril PO Q8 PRN Anxiety Lorazepam 1 mg 12/26/17 04:56 Ativan IM Q8H PRN Anxiety/Agitation,Unable PO Magnesium Hydroxide 30 ml 12/26/17 04:56 Milk Of Magnesia PO HS PRN Constipation Mirtazapine 7.5 mg 12/26/17 22:00 Remeron PO HS ALIS Quetiapine Fumarate 200 mg 12/26/17 22:00 Seroquel PO HS [facility] Past Psychiatric History - Past Psychiatric History Explanation of prior treatment: multiple inpatient hospitalization, hx of non compliance History of ETOH/Drug Use: hx of cociane and cannabis abuse Pertinent Medical Hx (Current Medical&Sleep Prob, Allergies): Allergies Allergy/AdvReac Type Severity Reaction Status Date / Time shrimp Allergy Mild SWELLING Verified 12/25/17 23:48 shellfish derived Allergy SWELLING Verified 12/25/17 23:48 Mirtazapine [Remeron] 30 mg PO HS #14 tablet 10/17/17 QUEtiapine [SEROquel XR] 300 mg PO HS #14 ter 10/17/17 amLODIPine [Norvasc] 5 mg PO DAILY #14 tab 10/17/17 Mental Status Examination - Personal Presentation Personal Presentation: Looks stated age - Affect Affect: Constricted, Depressed - Motor Activity Motor Activity: Calm - Reliability in Providing Information Reliability in Providing Information: Fair - Speech Speech: Relevant - Mood Mood: Depressed, Anxious - Formal Thought Process Formal Thought Process: Hallucinations, Circumstantial Additional comments: reported non command auditory hallucinations - Hallucinations/Delusions Hallucinations: Auditory - Obsessions/Compulsions Obsessions: No Compulsions: No - Cognitive Functions Orientation: Person, Place Sensorium: Alert Attention/Concentration: Attentive Abstract Thinking: [place] Judgement: Imparied, as evidence by: Poor judgement, Imparied, as evidence by: Lack of insight into illness - Risk Risk: Suicidal, Diminished functioning - Strength & Assets Inventory Strength & Assets Inventory: Life experience - Limitations Additional comments: poor compliance DSM 5 DX - DSM 5 DSM 5 Diagnosis: 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
[2017-12-27 08:52] LABS: BLOOD UREA NITROGEN 11 mg/dl (9-20); CALCIUM 9.3 mg/dL (8.4-10.2); GFR NON-AFRICAN AMERICAN > 60
[2017-12-27 09:00] LABS: T4 7.63 ug/dl (5.5-11.0)
--- NOTE | 2017-12-27 13:26 | PCM.PYCHPN ---
Psychiatric Progress Note - Psychiatric Progress Note Patient seen today, length of contact: pt evaluated discussed with team chart reviewed Patient Chief Complaint: I continue to hear voices and I have night [place] Problems Identified/Issues Discussed: pt seen in bed reported feeling depressed, constricted affect, continues to report non command auditory hallucinations, low energy, poor sleep with frequent nightmares discussed increasing dose of seroquel, starting prazosin pt denied side effects of medications, denied any current active thoughts of self harm Medical Problems: multiple inpatient hospitalization, hx of non compliance DSM 5 Symptoms Update: schizoaffective disorder cocaine abuse cannabis abuse Medication Change: Yes (increase seroquel) Medical Record Reviewed: Yes Mental Status Examination - Cognitive Function Orientation: Person, Place Memory: Intact Attention: WNL Concentration: WNL Association: WNL Fund of Knowledge: Poor Decription of patient's judgement and insights: poor insight and judgment - Mood Mood: Depressed, Anxious - Affect Affect: Constricted, Depressed - Speech Speech: Appropriate - Formal Thought Process Formal Thought Process: Hallucinations, Circumstantial Psychotic Thoughts and Behaviors: pt reported nn ommand auditory halluciantaions - Suicidal Ideation Suicidal Ideation: No - Homicidal Ideation Homicidal Ideation: No Goal/Treatment Plan - Goal/Treatment Plan Need for Continued Stay: Severe depression anxiety, Discharge may exacerbated symptoms Progress Toward Problem(s) and Goals/Treatment Plan: increase seroquel 300mg qhs increase gradually remeron 7.5mg qhs start prazosin 1mg qhs Motivational group and supportive therapy internal medecine consult
--- NOTE | 2017-12-28 14:03 | PCM.PYCHPN ---
Psychiatric Progress Note - Psychiatric Progress Note Patient seen today, length of contact: pt evaluated discussed with team chart reviewed Patient Chief Complaint: I still feel depressed and I have trouble sleeping Problems Identified/Issues Discussed: pt on evaluation presenting with depressed mood,, affect edgy and irritable, reported decreased sleep with early insomnia, discussed with pt increasing dose of remeon , pt reported partial clearing off of the auditory hallucinations with the increase in seroquel denied side effects of medications, denied any current active thoughts of self harm Medical Problems: multiple inpatient hospitalization, hx of non compliance DSM 5 Symptoms Update: substance induced mood disorder schizoaffective disorder Medication Change: Yes (increase remeron) Medical Record Reviewed: Yes Mental Status Examination - Cognitive Function Orientation: Person, Place Memory: Intact Attention: WNL Concentration: WNL Association: WNL Fund of Knowledge: Poor Decription of patient's judgement and insights: poor insight and judgment - Mood Mood: Depressed, Anxious - Affect Affect: Constricted, Depressed - Speech Speech: Appropriate - Formal Thought Process Formal Thought Process: Hallucinations, Circumstantial Psychotic Thoughts and Behaviors: pt reported nn ommand auditory halluciantaions - Suicidal Ideation Suicidal Ideation: No - Homicidal Ideation Homicidal Ideation: No Goal/Treatment Plan - Goal/Treatment Plan Need for Continued Stay: Severe depression anxiety, Discharge may exacerbated symptoms Progress Toward Problem(s) and Goals/Treatment Plan: seroquel 300mg qhs remeron 15mg qhst prazosin 1mg qhs Motivational group and supportive therapy referral to rehab on discharge
[2017-12-28 18:31] VITALS: RESP 18
[2017-12-29 09:40] VITALS: PULSE 80; TEMP 98.1
[2017-12-29 09:42] VITALS: BP 153/103
--- NOTE | 2017-12-29 11:12 | PCM.PYCHDC ---
Mental Status Examination - Mental Status Examination Orientation: Person, Place, Situation Memory: Intact Mood: Neutral Affect: Constricted Speech: Appropriate Attention: WNL Concentration: WNL Association: WNL Fund of Knowledge: WNL Formal Thought Process: No Impairment Description of patient's judgement and insight: poor insight and judgment Psychotic Thoughts and Behaviors: pt on discharge denied perceptual disturbances, non elicited Suicidal Ideation: No Current Homicidal Ideation?: No Discharge Summary - Discharge Note Reason for Hospitalization: pt is 52ys old male with previous diagnosis of schizoaffective disorder depressed, cannabis and cocaine abuse, recently non compliant with medications or follow up, pt has been increasingly depressed due to financial difficulties and his son being in hospital , relapsed on cocaine and cannabis, started to experience auditory halluciantions and suicidal ideation, came to ER seeking help pt on the unit presenting with hopelessness , helplessness , passive suicidal ideation without active plan on the unit denied command hallucinations, denied homicidal ideation Consultations:: List each consultation separately and include: 1. Reason for request. 2. Findings. 3. Follow-up Summary of Hospital Course include:: 1. Description of specific treatment plan utilized for patients during their course of treatmen. 2. Summarize the time- course for resolution of acute symptoms and/or regressed behaviors. 3. Describe issues identified and worked on during hospitalization. 4. Describe medication utilized. 5. Describe medical problems identified and treated. 6. Reassessment of suicide risk Summary of Hospital Course: pt i on admission was started on seroquel for AH, remeron for depression and prazosin for night [place] motivational and group therapy provided for substance use pt was compliant with treatment, no reported side effects on discharge pt mental status was stable dened any current suicidal or homicidal ideation denied perceptual disturbances, pt to follow up at [facility] outpatient services - Diagnosis (1) Depression Current Visit: Yes Status: Acute - Final Diagnosis (DSM 5) Condition upon Discharge: STABLE DSM 5: schizoaffective disorder bipolar cocaine use disorder cannabis use disorder Disposition: HOME/ ROUTINE Follow-up Treatment Plan: seroquel 300mg qhs remeron 15mg qhst prazosin 1mg qhs Motivational group and supportive therapy referral to rehab on discharge Prescriptions/Medication Reconciliation: Mirtazapine [Remeron] 15 mg PO HS 30 Days #30 tab Prazosin HCl [Minipress] 1 mg PO HS 30 Days #30 cap QUEtiapine [SEROquel] 300 mg PO HS 30 Days #30 tab - Antipsychotic Medications Pt discharged on 2 or more routine antipsychotic medications: No
== END 2017-12-29 12:35 | disposition home or self-care (01) | DRG 747 ==
LOC: H.ER 23:41 → H.ERHOLD 12-26 01:22 → H.PSYCH 12-26 04:55
PROVIDERS: ADMIT Psychiatry & Neurology Psychiatry; ATTEND Psychiatry & Neurology Psychiatry
PROC: HZ32ZZZ Individual Counseling for Substance Abuse Treatment, Cognitive-Behavioral (ICD-10-PCS; principal; 2017-12-26)
PROC: HZ99ZZZ Pharmacotherapy for Substance Abuse Treatment, Other Replacement Medication (ICD-10-PCS; 2017-12-26)
PROC: HZ52ZZZ Individual Psychotherapy for Substance Abuse Treatment, Cognitive-Behavioral (ICD-10-PCS; 2017-12-26)
DX: F14.14 Cocaine abuse with cocaine-induced mood disorder (principal); F25.9 Schizoaffective disorder, unspecified; J44.9 Chronic obstructive pulmonary disease, unspecified; E87.6 Hypokalemia; F17.210 Nicotine dependence, cigarettes, uncomplicated; F31.9 Bipolar disorder, unspecified; F43.10 Post-traumatic stress disorder, unspecified; G47.00 Insomnia, unspecified; I10 Essential (primary) hypertension; K59.00 Constipation, unspecified; R45.851 Suicidal ideations; Z91.14 Patient's other noncompliance with medication regimen; Z91.19 Patient's noncompliance with other medical treatment and regimen; F41.9 Anxiety disorder, unspecified; Z79.899 Other long term (current) drug therapy; E78.00 Pure hypercholesterolemia, unspecified; F12.10 Cannabis abuse, uncomplicated

== ENCOUNTER 2018-01-11 21:20 | Emergency (ER) | payer MEDICAID ==
[2018-01-11 21:20] VITALS: BMI 31.1
[2018-01-11 21:26] VITALS: PULSE 67; RESP 18; O2SAT 100
[2018-01-11] MEDS ORDERED: DiphenhydrAMINE 50 mg/ml Inj IVP STA (21:49)
[2018-01-11] MEDS ORDERED: DiphenhydrAMINE 50 mg/ml Inj ONE (22:09)
[2018-01-11 22:12] LABS: BASO % 0.6 % (0.0-2.0); EOS # 0.1 K/uL (0.0-0.7); EOS % 1.7 % (0.0-4.0); LYMPH # 2.2 K/uL (1.0-4.3); MEAN CORPUSCULAR HEMOGLOBIN 28.8 pg (27.0-31.0); MEAN CORPUSCULAR HGB CONC 33.9 g/dL (33.0-37.0); MEAN PLATELET VOLUME 7.7 fl (7.2-11.7); MONO # 0.6 K/uL (0.0-0.8); MONO % 8.1 % (0.0-10.0); NEUT % 57.6 % (50.0-75.0); NRBC % 0.1 % (0.0-0.0); RBC 4.52 Mil/uL (4.40-5.90); RED CELL DISTRIBUTION WIDTH 15.1 % (11.5-14.5); WHITE BLOOD COUNT 6.9 K/uL (4.8-10.8)
--- NOTE | 2018-01-11 22:28 | ED PDOC ---
HPI: Abdomen Time Seen by Provider: 01/11/18 21:32 Chief Complaint (Nursing): Abdominal Pain Chief Complaint (Provider): Abdominal Pain History Per: Patient History/Exam Limitations: no limitations Onset/Duration Of Symptoms: Days (x2) Current Symptoms Are (Timing): Still Present Associated Symptoms: denies: Fever, Chills, Nausea, Vomiting, Diarrhea, Urinary Symptoms Additional Complaint(s): 52 year old male presents to the ED for evaluation of right groin pain since yesterday morning. Patient states that the night prior, he was having relations with his girlfriend and woke up with groin pain. Denies any heavy lifting or strenuous activity. Patient states pain is worse with movement and walking. Denies any prior hernias and states he has not taken any medications prior to arrival. Denies fever, chills, urinary symptoms, testicular pain or swelling, penile discharge, nausea, vomiting, diarrhea, or hematuria. PMD: none Past Medical History Reviewed: Historical Data, Nursing Documentation, Vital Signs Vital Signs: Last Vital Signs Temp 98.5 F 01/12/18 00:55 Pulse 67 01/12/18 00:55 Resp 18 01/12/18 00:55 BP 156/86 H 01/12/18 00:55 Pulse Ox 100 01/14/18 23:47 - Medical History PMH: Anxiety, Bipolar Disorder, COPD, Depression, HTN, Hypercholesterolemia - Family History Family History: States: Unknown Family Hx - Social History Current smoker - smoking cessation education provided: Yes (2 cigarettes daily) Alcohol: Social Drugs: Cannabis - Home Medications Home Medications: Ambulatory Orders Medication Instructions Recorded amLODIPine [Norvasc] 5 mg PO DAILY #14 tab 10/17/17 Mirtazapine [Remeron] 15 mg PO HS 30 Days #30 tab 12/29/17 Prazosin HCl [Minipress] 1 mg PO HS 30 Days #30 cap 12/29/17 QUEtiapine [SEROquel] 300 mg PO HS 30 Days #30 tab 12/29/17 amLODIPine [Norvasc] 5 mg PO DAILY tab 12/29/17 Meloxicam [Mobic] 15 mg PO DAILY #14 tab 01/12/18 - Allergies Allergies/Adverse Reactions: Allergies Allergy/AdvReac Type Severity Reaction Status Date / Time shrimp Allergy Mild SWELLING Verified 01/14/18 20:50 shellfish derived Allergy SWELLING Verified 01/14/18 20:50 Review of Systems ROS Statement: Except As Marked, All Systems Reviewed And Found Negative Constitutional: Negative for: Fever, Chills Gastrointestinal: Positive for: Abdominal Pain (Right groin pain). Negative for : Nausea, Vomiting, Diarrhea Genitourinary Male: Negative for: Dysuria, Hematuria, Penile Discharge, Scrotal Pain, Other (Testicular pain or swelling) Physical Exam - Reviewed Nursing Documentation Reviewed: Yes Vital Signs Reviewed: Yes - Physical Exam Appears: Positive for: Well, Non-toxic, No Acute Distress Head Exam: Positive for: ATRAUMATIC, NORMOCEPHALIC Skin: Positive for: Normal Color, Warm, Dry. Negative for: Rash Eye Exam: Positive for: Normal appearance ENT: Positive for: Other (Mucus membranes moist. Airway patent, (-) stridor.) Neck: Positive for: Painless ROM, Supple Cardiovascular/Chest: Positive for: Regular Rate, Rhythm Respiratory: Positive for: Normal Breath Sounds Gastrointestinal/Abdominal: Positive for: Bowel Sounds (active x4), Soft. Negative for: Tenderness, Distended, Guarding Male Genital Exam: Positive for: normal genitalia, inguinal tenderness (2cm by 2cm mildly tender palpable mass to the right inguinal region). Negative for: scrotum tenderness (R), scrotum tenderness (L), testicular tenderness (R), testicular tenderness (L), urethral discharge, other (rashes, vesicles, or ulcers) Back: Negative for: L CVA Tenderness, R CVA Tenderness, Vertebral Tenderness Extremity: Positive for: Normal ROM. Negative for: Deformity Neurologic/Psych: Positive for: Alert, Oriented (x3), Gait (steady in ED). 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 2254 CMP and lactic acid unremarkable. Patient in CT. 0040 CT reviewed, radiology report follows EXAM: CT Abdomen and Pelvis With Intravenous Contrast CLINICAL HISTORY: 52 years old, male; Pain; Other: Lump-grion; Additional info: Inguinal mass/ pain R/O hernia vs lymphadenopathy TECHNIQUE: Axial computed tomography images of the abdomen and pelvis with intravenous contrast. All CT scans at this facility use at least one of these dose optimization techniques: automated exposure control; mA and/or kV adjustment per patient size (includes targeted exams where dose is matche to clinical indication); or iterative reconstruction. Coronal and sagittal reformatted images were created and reviewed. CONTRAST: 95 mL of OMNIPAQUE-300 administered intravenously. COMPARISON: CT - ABD PELVIS PO CONTRAST ONLY 09/13/2017 3:26 AM FINDINGS: Lung bases: Intact. No mass. No consolidation. ABDOMEN: Liver: Few scattered hepatic hypodensities similar to the previous examination most compatible with benign cysts or small hemangiomas. Gallbladder and bile ducts: Intact. No calcified stones. No ductal dilation. Pancreas: No mass. No ductal dilation. Spleen: No splenomegaly. Adrenals: No mass. Kidneys and ureters: Small cortical cyst left kidney less than 1 cm. No hydronephrosis right or left kidney. Stomach and bowel: Approximately 1.7 cm. umbilical hernia containing protrusions of a small bowel loop similar to the previous exam. Mild prominence of the proximal and mid jejunal bowel lucio in the left upper abdomen which can represent enteritis. No bowel obstruction. PELVIS: Appendix: No findings to suggest acute appendicitis. Bladder: No mass. Reproductive: Unremarkable as visualized. ABDOMEN and PELVIS: Intraperitoneal space: No free air. No significant fluid collection. Bones/joints: No acute fracture. No dislocation. Soft tissues: Small fat-containing bilateral inguinal hernias similar to the previous exam. Linear indurated density right groin most likely scarring from previous femoral artery access procedure. Vasculature: See above. Lymph nodes: No enlarged lymph nodes. IMPRESSION: 1. Suspect mild enteritis left upper abdomen. No bowel obstruction. 2. Small fat-containing bilateral inguinal hernias similar to the previous exam. No inguinal masses or adenopathy. 3. Linear indurated density right groin most likely scarring from previous femoral artery access procedure. 4. Approximately 1.7 cm. umbilical hernia containing protrusions of a small bowel loop similar to the previous exam. 5. No bowel obstruction. Thank you for allowing us to participate in the care of your patient. Dictated and Authenticated by: Naresh Mcghee MD 01/12/2018 12:08 AM Eastern Time ( [place] & [place]) On re-evaluation, patient reports improvement of symptoms. On exam, patient remains AAOx3, in no acute distress. Lungs clear to auscultation, cardiac RRR, abdomen soft, non-tender, repeat neuro exam shows no focal findings. VSS, stable for discharge. Lab/Diagnostic results d/w the patient in great detail. Diagnosis of groin pain/ strain, inguinal hernia d/w the patient. Based on history, exam and diagnostic results, plan will be for outpatient follow up. Patient instructed to follow-up with pmd / referral provided / the clinic in 1- 2 days without fail. Advised to take medication as prescribed. Return to the emergency room at any time for any new or worsening symptoms. Patient states he fully agrees with and understands discharge instructions. States that he agrees with the plan and disposition. Verbalized and repeated discharge instructions and plan. I have given the patient opportunity to ask any additional questions. Scribe Attestation: Documented by Rickey Esposito acting as a scribe for Faye LAGUNAS. Provider Scribe Attestation: All medical record entries made by the Scribe were at my direction and personally dictated by me. I have reviewed the chart and agree that the record accurately reflects my personal performance of the history, physical exam, medical decision making, and the department course for this patient. I have also personally directed, reviewed, and agree with the discharge instructions and disposition. Disposition - Clinical Impression Clinical Impression: Groin strain, Inguinal hernia, Groin pain - Patient ED Disposition Is Patient to be Admitted: No Counseled Patient/Family Regarding: Studies Performed, Diagnosis, Need For Followup, Rx Given - Disposition Referrals: Caleb Doran MD [Medical Doctor] - Disposition: Routine/Home Disposition Time: 00:46 Condition: STABLE Additional Instructions: The emergency medical care you received today was directed towards the acute presenting symptoms. If you were prescribed any medication, please fill it and give as directed. It may take several days for your symptoms to resolve. Return to the Emergency Department at any time if symptoms worsen, do not improve, or if any other problems arise. Please contact your doctor in 2 days for re-evaluation and follow up / or call one of the physicians/clinics you have been referred to that are listed on the Patient Visit Information form that is included in your discharge packet. Bring any paperwork you were given at discharge with you along with any medications to your follow up visit. Our treatment cannot replace ongoing medical care by a primary care provider (PCP) outside of the emergency department. Prescriptions: Meloxicam [Mobic] 15 mg PO DAILY #14 tab Instructions: Groin Strain, Inguinal and Femoral (Groin) Hernias, Groin Hernia (DC) Forms: [employer] (Belarusian) Print Language: BENINESE - POA Present On Arrival: None Results - Lab Results Lab Results: 01/11/18 01/11/18 01/11/18 22:01 22:01 22:01 WBC 6.9 RBC 4.52 Hgb 13.0 Hct 38.4 MCV 85.0 MCH 28.8 MCHC 33.9 RDW 15.1 H Plt Count 231 MPV 7.7 Neut % (Auto) 57.6 Lymph % (Auto) 32.0 Beckham % (Auto) 8.1 Eos % (Auto) 1.7 Baso % (Auto) 0.6 Neut # (Auto) 4.0 Lymph # (Auto) 2.2 Beckham # (Auto) 0.6 Eos # (Auto) 0.1 Baso # (Auto) 0.0 Sodium 138 Potassium 3.4 L Chloride 106 Carbon Dioxide 26 Anion Gap 9 L BUN 14 Creatinine 1.2 Est GFR ( Amer) > 60 Est GFR (Non-Af Amer) > 60 Random Glucose 108 Lactic Acid 1.4 Calcium 8.9 Total Bilirubin 0.3 AST 24 ALT 38 Alkaline Phosphatase 64 Total Protein 7.0 Albumin 3.9 Globulin 3.2 Albumin/Globulin Ratio 1.2
[2018-01-11 22:33] LABS: ALB/GLOB RATIO 1.2 (1.0-2.1); ALBUMIN 3.9 g/dL (3.5-5.0); ALT/SGPT 38 U/L (21-72); AST/SGOT 24 U/L (17-59); BLOOD UREA NITROGEN 14 mg/dl (9-20); CALCIUM 8.9 mg/dL (8.4-10.2); GFR NON-AFRICAN AMERICAN > 60
[2018-01-11] MEDS ORDERED: Iohexol 300 100 ML IJ ONE (22:46)
[2018-01-11] MEDS ORDERED: Sodium Chloride 0.9% 50 ML IV ONE (22:46)
[2018-01-12 01:04] VITALS: BP 156/86; TEMP 98.5
--- NOTE | 2018-01-12 08:04 | CT ---
EXAM: CT Abdomen and Pelvis With Intravenous Contrast CLINICAL HISTORY: 52 years old, male; Pain; Other: Lump-grion; Additional info: Inguinal mass/pain R/O hernia vs lymphadenopathy TECHNIQUE: Axial computed tomography images of the abdomen and pelvis with intravenous contrast. All CT scans at this facility use at least one of these dose optimization techniques: automated exposure control; mA and/or kV adjustment per patient size (includes targeted exams where dose is matche to clinical indication); or iterative reconstruction. Coronal and sagittal reformatted images were created and reviewed. CONTRAST: 95 mL of OMNIPAQUE-300 administered intravenously. COMPARISON: CT - ABD PELVIS PO CONTRAST ONLY 09/13/2017 3:26 AM FINDINGS: Lung bases: Intact. No mass. No consolidation. ABDOMEN: Liver: Few scattered hepatic hypodensities similar to the previous examination most compatible with benign cysts or small hemangiomas. Gallbladder and bile ducts: Intact. No calcified stones. No ductal dilation. Pancreas: No mass. No ductal dilation. Spleen: No splenomegaly. Adrenals: No mass. Kidneys and ureters: Small cortical cyst left kidney less than 1 cm. No hydronephrosis right or left kidney. Stomach and bowel: Approximately 1.7 cm. umbilical hernia containing protrusions of a small bowel loop similar to the previous exam. Mild prominence of the proximal and mid jejunal bowel lucio in the left upper abdomen which can represent enteritis. No bowel obstruction. PELVIS: Appendix: No findings to suggest acute appendicitis. Bladder: No mass. Reproductive: Unremarkable as visualized. ABDOMEN and PELVIS: Intraperitoneal space: No free air. No significant fluid collection. Bones/joints: No acute fracture. No dislocation. Soft tissues: Small fat-containing bilateral inguinal hernias similar to the previous exam. Linear indurated density right groin most likely scarring from previous femoral artery access procedure. Vasculature: See above. Lymph nodes: No enlarged lymph nodes. IMPRESSION: 1. Suspect mild enteritis left upper abdomen. No bowel obstruction. 2. Small fat-containing bilateral inguinal hernias similar to the previous exam. No inguinal masses or adenopathy. 3. Linear indurated density right groin most likely scarring from previous femoral artery access procedure. 4. Approximately 1.7 cm. umbilical hernia containing protrusions of a small bowel loop similar to the previous exam. 5. No bowel obstruction.
== END 2018-01-12 01:05 | disposition home or self-care (01) ==
LOC: H.ER 21:20
DX: R10.30 Lower abdominal pain, unspecified (principal); K40.20 Bilateral inguinal hernia, without obstruction or gangrene, not specified as recurrent; E78.00 Pure hypercholesterolemia, unspecified
CPT/HCPCS: 74177; 80053; 83605; 85025; 96374; 96375; 99284; J1200; J1885; Q9967

== ENCOUNTER 2018-02-27 08:53 | Emergency (ER) | payer MEDICAID ==
[2018-02-27 08:57] VITALS: BMI 28.2
[2018-02-27 11:09] LABS: PHENCYCLIDINE, UR NEGATIVE (NEGATIVE)
[2018-02-27 11:10] LABS: BARBITURATES, UR NEGATIVE (NEGATIVE); BENZODIAZEPINES, UR NEGATIVE (NEGATIVE); OPIATES, UR NEGATIVE (NEGATIVE)
--- NOTE | 2018-02-27 11:32 | ED PDOC ---
HPI: Psych/Substance Abuse Time Seen by Provider: 02/27/18 09:23 Chief Complaint (Nursing): Psychiatric Evaluation History Per: Patient Additional Complaint(s): Pt. states over the weekend was his birthday and nobody acknowledged it. Since then he's felt depressed. Yesterday he placed the end of a gun in his mouth in an attempt to kill himself but decided not to. States he informed his girlfriend of the incident and as advised t come to ED. Pt. states he still feels suicidal. Denies HI, hallucinations. Past Medical History Reviewed: Historical Data, Nursing Documentation, Vital Signs Vital Signs: Last Vital Signs Temp 98.7 F 02/27/18 08:57 Pulse 80 02/27/18 08:57 Resp 20 02/27/18 08:57 BP 174/98 H 02/27/18 08:57 Pulse Ox 97 02/27/18 08:57 - Medical History PMH: Anxiety, Bipolar Disorder, COPD, Depression, HTN, Hypercholesterolemia, Post Traumatic Stress Disorder, Schizophrenia Denies: Diabetes, Hepatitis, HIV, Chronic Kidney Disease, Seizures, Sexually Transmitted Disease - Family History Family History: States: No Known Family Hx - Immunization History Hx Tetanus Toxoid Vaccination: No Hx Influenza Vaccination: Yes Hx Pneumococcal Vaccination: No - Home Medications Home Medications: Ambulatory Orders Medication Instructions Recorded RX: Mirtazapine [Remeron] 15 mg PO HS #14 tab 01/18/18 RX: QUEtiapine [Seroquel] 100 mg PO AMHS #30 tab 01/18/18 RX: amLODIPine [Norvasc] 10 mg PO DAILY #7 tab 01/18/18 - Allergies Allergies/Adverse Reactions: Allergies Allergy/AdvReac Type Severity Reaction Status Date / Time shrimp Allergy Mild SWELLING Verified 01/20/18 06:19 shellfish derived Allergy SWELLING Verified 01/20/18 06:19 Review of Systems ROS Statement: Except As Marked, All Systems Reviewed And Found Negative Psych: Positive for: Depression, Suicidal ideation Physical Exam - Reviewed Nursing Documentation Reviewed: Yes Vital Signs Reviewed: Yes - Physical Exam Appears: Positive for: Well, Non-toxic, No Acute Distress Head Exam: Positive for: ATRAUMATIC, NORMAL INSPECTION, NORMOCEPHALIC Skin: Positive for: Normal Color, Warm, DRY Eye Exam: Positive for: EOMI, Normal appearance, PERRL ENT: Positive for: Normal ENT Inspection Neck: Positive for: Normal, Painless ROM Cardiovascular/Chest: Positive for: Regular Rate, Rhythm Respiratory: Positive for: CNT, Normal Breath Sounds Gastrointestinal/Abdominal: Positive for: Normal Exam, Soft. Negative for: Tenderness Back: Positive for: Normal Inspection Extremity: Positive for: Normal ROM Neurologic/Psych: Positive for: Alert, Oriented (x3), Mood/Affect (calm, cooperative). Negative for: Aphasia, Facial Droop - Laboratory Results Result Diagrams: 02/27/18 13:00 02/27/18 13:00 - ECG O2 Sat by Pulse Oximetry: 97 - Radiology X-Ray: Interpreted by Me (CXR) X-Ray Interpretation: No Acute Disease - Progress ED Course And Treament: Labs, crisis eval ordered. Pt. placed on 1:1. Pt. evaluated by Geeta COKER who spoke with psychiatrist and requests admission. Pt. is medically cleared for psychiatric admission. Disposition - Clinical Impression Clinical Impression: Bipolar disorder - Patient ED Disposition Is Patient to be Admitted: Transfer of Care (Dr. Lee continued care at the end of my shift.) - Disposition Disposition Time: 20:00 Condition: STABLE
[2018-02-27 13:17] LABS: BASO # 0.1 K/uL (0.0-0.2); BASO % 1.1 % (0.0-2.0); EOS # 0.1 K/uL (0.0-0.7); EOS % 2.4 % (0.0-4.0); HEMOGLOBIN 13.4 g/dL (12.0-18.0); LYMPH # 1.9 K/uL (1.0-4.3); LYMPH % 31.9 % (20.0-40.0); MEAN CELL VOLUME 86.2 fl (80.0-94.0); MEAN CORPUSCULAR HEMOGLOBIN 28.7 pg (27.0-31.0); MEAN CORPUSCULAR HGB CONC 33.3 g/dL (33.0-37.0); MEAN PLATELET VOLUME 7.7 fl (7.2-11.7); MONO # 0.4 K/uL (0.0-0.8); NEUT # 3.4 K/uL (1.8-7.0); NEUT % 57.6 % (50.0-75.0); NRBC % 0.1 % (0.0-0.0); RBC 4.66 Mil/uL (4.40-5.90); RED CELL DISTRIBUTION WIDTH 16.9 % (11.5-14.5); WHITE BLOOD COUNT 5.9 K/uL (4.8-10.8)
[2018-02-27 13:30] LABS: ALB/GLOB RATIO 1.1 (1.0-2.1); ALBUMIN 3.5 g/dL (3.5-5.0); ALT/SGPT 19 U/L (21-72); AST/SGOT 24 U/L (17-59); BLOOD UREA NITROGEN 13 mg/dl (9-20); CALCIUM 8.8 mg/dL (8.4-10.2); GFR NON-AFRICAN AMERICAN > 60; SQUAMOUS EPITHIAL < 1 /hpf (0-5); URINE BACTERIA RARE (<OCC); URINE BILIRUBIN NEGATIVE (NEGATIVE); URINE BLOOD NEGATIVE (NEGATIVE); URINE CLARITY CLOUDY (Clear); URINE COLOR YELLOW (YELLOW); URINE GLUCOSE (UA) NEG (Normal); URINE LEUKOCYTE ESTERASE NEG Leu/uL (Negative); URINE PROTEIN 30 mg/dL (NEGATIVE)
--- NOTE | 2018-02-27 13:53 | CARD ---
APPROVED REPORT Date of service: 02/27/2018 EKG Measurement Heart [id number] <Conclusion> Normal sinus rhythm T wave abnormality, consider inferolateral ischemia Abnormal ECG
[2018-02-27] MEDS ORDERED: Potassium Chloride 20 mEq ER Tab PO STA (14:13)
--- NOTE | 2018-02-27 15:06 | RAD ---
Date of service: 02/27/2018 HISTORY: clearance COMPARISON: Frontal chest radiograph 12/26/2017. FINDINGS: LUNGS: No active pulmonary disease. Improved inspiratory volume identified. PLEURA: No significant pleural effusion identified, no pneumothorax apparent. CARDIOVASCULAR: No aortic atherosclerotic calcification present. Normal cardiac size. No pulmonary vascular congestion. OSSEOUS STRUCTURES: No significant abnormalities. VISUALIZED UPPER ABDOMEN: Normal. OTHER FINDINGS: None. IMPRESSION: No interval acute cardiopulmonary disease appreciated.
--- NOTE | 2018-02-27 23:02 | ED PDOC ---
- Laboratory Results Result Diagrams: 02/27/18 13:00 02/27/18 13:00 - ECG O2 Sat by Pulse Oximetry: 97 (RA) Pulse Ox Interpretation: Normal Medical Decision Making Medical Decision Making: Time: 19:00 Patient was endorsed to me by Dr. Badillo/JANNETH Chris pending crisis evaluation and final disposition. 22:00 As per crisis, patient has not been accepted to any outside facility. As per Dr. Gallegos's request, patient will be held in the ER overnight for a face to face evaluation in the morning. 7:00 Patient will be endorsed to Dr. Aranda pending evaluation by Dr. Gallegos and final disposition. Scribe Attestation: Documented by, Marivel Lundy acting as a scribe for Terrance Lee MD. Provider Scribe Attestation: All medical record entries made by the Scribe were at my direction and personally dictated by me. I have reviewed the chart and agree that the record accurately reflects my personal performance of the history, physical exam, medical decision making, and the department course for this patient. I have also personally directed, reviewed, and agree with the discharge instructions and disposition. Disposition - Clinical Impression Clinical Impression: Bipolar disorder - POA Present On Arrival: None - Disposition Disposition: Routine/Home Disposition Time: 07:00 Condition: FAIR Forms: [employer] (Spanish)
[2018-02-27] MEDS ORDERED: Potassium Chloride 20 mEq ER Tab PO ONE (23:09)
--- NOTE | 2018-02-28 07:14 | ED PDOC ---
- Laboratory Results Result Diagrams: 02/27/18 13:00 02/27/18 13:00 - ECG O2 Sat by Pulse Oximetry: 96 (RA) Pulse Ox Interpretation: Normal - Progress ED Course And Treament: 1451: Dr. Murguia to take over care. Fu on crisis. Medical Decision Making Medical Decision Making: Time: 0700 -- Patient endorsed to me by Dr. Lee, pending crisis evaluation. Scribe Attestation: Documented by Amarjit Unger, acting as a scribe for Tacho Aranda MD. Provider Scribe Attestation: All medical record entries made by the Scribe were at my direction and personally dictated by me. I have reviewed the chart and agree that the record accurately reflects my personal performance of the history, physical exam, medical decision making, and the department course for this patient. I have also personally directed, reviewed, and agree with the discharge instructions and disposition. Disposition - Clinical Impression Clinical Impression: Bipolar disorder - POA Present On Arrival: None - Disposition Disposition: Transfer of Care Disposition Time: 14:54 Condition: STABLE Patient Signed Over To: Eladia Murguia
--- NOTE | 2018-02-28 10:16 | CP.PCM.CON ---
History of Present Illness - History of Present Illness History of Present Illness: This is a 53 yr old male with h/o schizoaffective disorder with previous admissions to [facility] and [facility] ,last admitted to [facility] in december and d/c on seroquel and remeron and came to ER because pt is depressed and wanted to shoot himself with a gun but did not do it and told his girlfriend and advised toncome to ER and still suicidal . Past Patient History - Infectious Disease Hx of Infectious Diseases: None - Tetanus Immunizations Tetanus Immunization: Unknown - Past Medical History & Family History Past Medical History?: Yes - Past Social History Smoking Status: Current Some Days Smoker - CARDIAC Hx Hypercholesterolemia: Yes Hx Hypertension: Yes - PULMONARY Hx Chronic Obstructive Pulmonary Disease (COPD): Yes - NEUROLOGICAL Hx Seizures: No - HEENT Hx HEENT Problems: No - RENAL Hx Chronic Kidney Disease: No - ENDOCRINE/METABOLIC Hx Endocrine Disorders: No - HEMATOLOGICAL/ONCOLOGICAL Hx Human Immunodeficiency Virus (HIV): No - INTEGUMENTARY Hx Dermatological Problems: No - MUSCULOSKELETAL/RHEUMATOLOGICAL Hx Musculoskeletal Disorders: No - GASTROINTESTINAL Hx Gastrointestinal Disorders: No - GENITOURINARY/GYNECOLOGICAL Hx Sexually Transmitted Disorders: No - PSYCHIATRIC Hx Anxiety: Yes Hx Bipolar Disorder: Yes Hx Depression: Yes Hx Post Traumatic Stress Disorder: Yes Hx Schizophrenia: Yes - SURGICAL HISTORY Hx Surgeries: No - ANESTHESIA Hx Anesthesia: No Hx Anesthesia Reactions: No Hx Malignant Hyperthermia: No Meds Allergies/Adverse Reactions: Allergies Allergy/AdvReac Type Severity Reaction Status Date / Time shrimp Allergy Mild SWELLING Verified 01/20/18 06:19 shellfish derived Allergy SWELLING Verified 01/20/18 06:19 Results - Vital Signs Recent Vital Signs: Last Vital Signs Temp 97.6 F 02/28/18 08:00 Pulse 56 L 02/28/18 08:00 Resp 20 02/28/18 08:00 BP 158/102 H 02/28/18 08:00 Pulse Ox 96 02/28/18 09:54 - Labs Result Diagrams: 02/27/18 13:00 02/27/18 13:00 Labs: Laboratory Results - last 24 hr 02/27/18 02/27/18 02/27/18 10:30 13:00 13:00 WBC 5.9 RBC 4.66 Hgb 13.4 Hct 40.2 MCV 86.2 MCH 28.7 MCHC 33.3 RDW 16.9 H Plt Count 230 MPV 7.7 Neut % (Auto) 57.6 Lymph % (Auto) 31.9 [place] % (Auto) 7.0 Eos % (Auto) 2.4 Baso % (Auto) 1.1 Neut # (Auto) 3.4 Lymph # (Auto) 1.9 [place] # (Auto) 0.4 Eos # (Auto) 0.1 Baso # (Auto) 0.1 Sodium 139 Potassium 3.3 L Chloride 106 Carbon Dioxide 26 Anion Gap 10 BUN 13 Creatinine 0.9 Est GFR ( Amer) > 60 Est GFR (Non-Af Amer) > 60 Random Glucose 120 H Calcium 8.8 Total Bilirubin 0.5 AST 24 ALT 19 L D Alkaline Phosphatase 75 Total Protein 6.8 Albumin 3.5 Globulin 3.3 Albumin/Globulin Ratio 1.1 Urine Color Urine Clarity Urine pH Ur Specific [place] Urine Protein Urine Glucose (UA) Urine Ketones Urine Blood Urine Nitrate Urine Bilirubin Urine Urobilinogen Ur Leukocyte Esterase Urine RBC (Auto) Urine Microscopic WBC Ur Squamous Epith Cells Urine Bacteria Urine Opiates Screen Negative Urine Methadone Screen Negative Ur Barbiturates Screen Negative Ur Phencyclidine Scrn Negative Ur Amphetamines Screen Negative U Benzodiazepines Scrn Negative U Oth Cocaine Metabols Positive H U Cannabinoids Screen Positive H Alcohol, Quantitative < 10 02/27/18 13:00 WBC RBC Hgb Hct MCV MCH MCHC RDW Plt Count MPV Neut % (Auto) Lymph % (Auto) [place] % (Auto) Eos % (Auto) Baso % (Auto) Neut # (Auto) Lymph # (Auto) [place] # (Auto) Eos # (Auto) Baso # (Auto) Sodium Potassium Chloride Carbon Dioxide Anion Gap BUN Creatinine Est GFR ( Amer) Est GFR (Non-Af Amer) Random Glucose Calcium Total Bilirubin AST ALT Alkaline Phosphatase Total Protein Albumin Globulin Albumin/Globulin Ratio Urine Color Yellow Urine Clarity Cloudy Urine pH 6.0 Ur Specific [place] 1.023 Urine Protein 30 Urine Glucose (UA) Neg Urine Ketones Negative Urine Blood Negative Urine Nitrate Negative Urine Bilirubin Negative Urine Urobilinogen 4.0 Ur Leukocyte Esterase Neg Urine RBC (Auto) 2 Urine Microscopic WBC 3 Ur Squamous Epith Cells < 1 Urine Bacteria Rare Urine Opiates Screen Urine Methadone Screen Ur Barbiturates Screen Ur Phencyclidine Scrn Ur Amphetamines Screen U Benzodiazepines Scrn U Oth Cocaine Metabols U Cannabinoids Screen Alcohol, Quantitative
--- NOTE | 2018-02-28 15:58 | ED PDOC ---
- Laboratory Results Result Diagrams: 02/27/18 13:00 02/27/18 13:00 - ECG O2 Sat by Pulse Oximetry: 97 (RA) Pulse Ox Interpretation: Normal Medical Decision Making Medical Decision Making: Time: 1500 --Patient signed out to this provider by Dr. Aranda, pending [facility] bed. 2200 Patient is accepted for voluntary admission at [facility] ------ Scribe Attestation: Documented by Olya Esposito, acting as a scribe for Eladia Murguia MD Provider Scribe Attestation: All medical record entries made by the Scribe were at my direction and personally dictated by me. I have reviewed the chart and agree that the record accurately reflects my personal performance of the history, physical exam, medical decision making, and the department course for this patient. I have also personally directed, reviewed, and agree with the discharge instructions and disposition. Disposition - Clinical Impression Clinical Impression: Bipolar disorder - POA Present On Arrival: None - Disposition Disposition: Other Institution ([facility] psych) Disposition Time: 22:00 Condition: STABLE Forms: [employer] (Icelandic)
[2018-02-28 17:48] VITALS: RESP 18
[2018-02-28 22:14] VITALS: TEMP 98.2
[2018-02-28 22:17] VITALS: O2SAT 97
[2018-02-28 23:09] VITALS: BP 121/82; PULSE 63
== END 2018-02-28 23:00 | disposition short-term general hospital (02) ==
LOC: H.ER 08:53
DX: F31.9 Bipolar disorder, unspecified (principal); F25.9 Schizoaffective disorder, unspecified; F43.10 Post-traumatic stress disorder, unspecified; E78.00 Pure hypercholesterolemia, unspecified; I10 Essential (primary) hypertension; J44.9 Chronic obstructive pulmonary disease, unspecified

== ENCOUNTER 2018-05-26 01:07 | Emergency (ER) | payer MEDICAID, OTHER ==
[2018-05-26 01:07] VITALS: BMI 32.5
[2018-05-26 01:38] VITALS: RESP 16; TEMP 97.5
--- NOTE | 2018-05-26 02:19 | ED PDOC ---
HPI: Headache Time Seen by Provider: 05/26/18 02:01 Chief Complaint (Nursing): Headache Chief Complaint (Provider): Headache History Per: Patient History/Exam Limitations: no limitations Onset/Duration Of Symptoms: Hrs (x16) Associated Symptoms: Blurred Vision. denies: Vomiting Additional Complaint(s): 53 years old male with history of depression and alcohol abuse presents to ER for evaluation s/p falling off a ladder onset 16 hours ago. Patient reports he feels his head was spinning with pain to the back of the head and felt some blurred vision. He denies vomiting. Patient reports drinking alcohol everyday and admits drinking twice today (2 pints). Pt is very uncooperative during the exam. He seems more preocupied with obtaining food and resting in a bed than his stated medical chief complaint. PMD: None provided Past Medical History Reviewed: Historical Data, Nursing Documentation, Vital Signs Vital Signs: Last Vital Signs Temp 97.5 F L 05/26/18 01:32 Pulse 82 05/26/18 01:32 Resp 16 05/26/18 01:32 BP 152/98 H 05/26/18 01:32 Pulse Ox 100 05/26/18 01:32 - Medical History PMH: Anxiety, Bipolar Disorder, COPD, Depression, HTN, Hypercholesterolemia, Post Traumatic Stress Disorder, Schizophrenia Denies: Diabetes, Hepatitis, HIV, Chronic Kidney Disease, Seizures, Sexually Transmitted Disease - Surgical History Surgical History: No Surg Hx - Family History Family History: States: Unknown Family Hx - Social History Current smoker - smoking cessation education provided: Yes (cigarettes) Alcohol: > 2 Drinks/Day - Immunization History Hx Tetanus Toxoid Vaccination: No Hx Influenza Vaccination: Yes Hx Pneumococcal Vaccination: No - Home Medications Home Medications: Ambulatory Orders Medication Instructions Recorded No Known Home Med 04/26/18 - Allergies Allergies/Adverse Reactions: Allergies Allergy/AdvReac Type Severity Reaction Status Date / Time shrimp Allergy Mild SWELLING Verified 04/28/18 17:23 shellfish derived Allergy SWELLING Verified 04/28/18 17:23 Review of Systems ROS Statement: Except As Marked, All Systems Reviewed And Found Negative Eyes: Positive for: Vision Change (Blurred vision) Gastrointestinal: Negative for: Vomiting Neurological: Positive for: Headache (spinning) Physical Exam - Reviewed Nursing Documentation Reviewed: Yes Vital Signs Reviewed: Yes - Physical Exam Appears: Positive for: Well, No Acute Distress (when i try to examine pt, and do full neuro exam, he tries to curl up to go to sleep and covers himself up with a blanket and turns over to his side with his back to me) Head Exam: Positive for: ATRAUMATIC, NORMAL INSPECTION, NORMOCEPHALIC Skin: Positive for: Normal Color, Warm, Dry Eye Exam: Positive for: Normal appearance, EOMI, PERRL ENT: Positive for: Normal ENT Inspection Neck: Positive for: Normal, Painless ROM, Supple Cardiovascular/Chest: Positive for: Regular Rate, Rhythm. Negative for: Murmur Respiratory: Positive for: Normal Breath Sounds. Negative for: Wheezing Gastrointestinal/Abdominal: Positive for: Normal Exam, Soft. Negative for: Ten derness Back: Positive for: Normal Inspection. Negative for: L CVA Tenderness, R CVA Tenderness Extremity: Positive for: Normal ROM. Negative for: Pedal Edema, Deformity Neurologic/Psych: Positive for: Alert, brake mechanic II-XII, Oriented (x3), Gait (stable). Negative for: Motor/Sensory Deficits, Aphasia, Facial Droop - Laboratory Results Result Diagrams: 05/26/18 03:36 05/26/18 03:36 - ECG O2 Sat by Pulse Oximetry: 100 (RA) Pulse Ox Interpretation: Normal Medical Decision Making Medical Decision Making: Time: 214 Initial Plan: fall rule out intracranial injury, electrolyte abnormality --CT head w/o contrast --Alcohol serum --CMP --Drug screen --CBC 0325 Normal size of the ventricles and extra-axial spaces for the patient's age. Normal white matter tracts of the supratentorial brain. Normal basal ganglia and thalami. Normal brainstem. Normal cerebellum. There is no demonstrated extra-axial, intraparenchymal, or intraventricular hemorrhage. There are no findings of an acute ischemic infarction. Normal calvarium. There is no demonstrated fracture. Normal soft tissue structures. Normal visualized paranasal sinuses. IMPRESSION: Normal unenhanced CT scan of the brain. [address] head reviewed and show no significant abnormality. 0337 Patient is concerned about eating, moving around looking for the vending machine. asking nurses for food. 0526 labs reviewed all benign Upon reevaluation, patient is medically stable for discharge. stable gait, gross neuro exam normal on reeval. pt got angry at nurses and myself when i told him results were normal. he said "i come here a lot. why do i have to leave now? i want to sleep here" pt exhibitng bed seeking behavior. given no physical evidence (bruise/other findings), concern for pt malignering. Scribe Attestation: Documented by Dinora Arreguin, acting as a scribe for Taryn Michele MD. Provider Scribe Attestation: All medical record entries made by the Scribe were at my direction and personally dictated by me. I have reviewed the chart and agree that the record accurately reflects my personal performance of the history, physical exam, medical decision making, and the department course for this patient. I have also personally directed, reviewed, and agree with the discharge instructions and disposition. Disposition - Clinical Impression Clinical Impression: Malingering - Patient ED Disposition Is Patient to be Admitted: No - Disposition Disposition: Routine/Home Disposition Time: 05:26 Condition: IMPROVED Additional Instructions: follow up as an outpatient in 1-2 days return to the ED with any worsening or concerning symptoms Forms: [employer] (Turkish)
[2018-05-26 03:52] LABS: BASO # 0.1 K/uL (0.0-0.2); EOS # 0.1 K/uL (0.0-0.7); EOS % 2.1 % (0.0-4.0); HEMOGLOBIN 13.1 g/dL (12.0-18.0); LYMPH # 1.9 K/uL (1.0-4.3); MEAN CELL VOLUME 86.6 fl (80.0-94.0); MEAN CORPUSCULAR HEMOGLOBIN 28.7 pg (27.0-31.0); MEAN CORPUSCULAR HGB CONC 33.1 g/dL (33.0-37.0); MEAN PLATELET VOLUME 7.7 fl (7.2-11.7); MONO # 0.4 K/uL (0.0-0.8); MONO % 6.9 % (0.0-10.0); NEUT # 3.8 K/uL (1.8-7.0); NRBC % 0.1 % (0.0-0.0); RBC 4.57 Mil/uL (4.40-5.90); RED CELL DISTRIBUTION WIDTH 15.3 % (11.5-14.5); WHITE BLOOD COUNT 6.3 K/uL (4.8-10.8)
[2018-05-26 04:04] LABS: ALB/GLOB RATIO 1.3 (1.0-2.1); ALBUMIN 4.2 g/dL (3.5-5.0); ALT/SGPT 32 U/L (21-72); AST/SGOT 31 U/L (17-59); BLOOD UREA NITROGEN 16 mg/dl (9-20); CALCIUM 9.2 mg/dL (8.4-10.2); GFR NON-AFRICAN AMERICAN > 60
[2018-05-26 06:32] VITALS: BP 148/88; PULSE 80
[2018-05-26 06:34] VITALS: O2SAT 100
--- NOTE | 2018-05-26 09:57 | CT ---
Date of service: 05/26/2018 PROCEDURE: CT HEAD WITHOUT CONTRAST. HISTORY: headache sp fall COMPARISON: None available. TECHNIQUE: Axial computed tomography images were obtained through the head/brain without intravenous contrast. Radiation dose: Total exam DLP = 1165.25 mGy-cm. This CT exam was performed using one or more of the following dose reduction techniques: Automated exposure control, adjustment of the mA and/or kV according to patient size, and/or use of iterative reconstruction technique. FINDINGS: HEMORRHAGE: No intracranial hemorrhage. BRAIN: No destructive bony lesion or displaced fracture identified including through the skullbase. VENTRICLES: Unremarkable. No hydrocephalus. CALVARIUM: Unremarkable. PARANASAL SINUSES: Unremarkable as visualized. No significant inflammatory changes. MASTOID AIR CELLS: Unremarkable as visualized. No inflammatory changes. OTHER FINDINGS: None. IMPRESSION: Unremarkable unenhanced head CT. Concordant preliminary report from MIRNARad, 05/26/2018 3:25 a.m..
== END 2018-05-26 06:08 | disposition home or self-care (01) ==
LOC: H.ER 01:07
DX: Z76.5 Malingerer [conscious simulation] (principal); R51 Headache; E78.00 Pure hypercholesterolemia, unspecified; F31.9 Bipolar disorder, unspecified